=== PATIENT | female | born 1945 | race Caucasian/White ===

== ENCOUNTER 2018-06-09 06:28 | Inpatient (IN) | payer MEDICARE, OTHER ==
[2018-06-09 06:56] LABS: BASO # 0.3 K/uL (0.0-0.2); BASO % 1.1 % (0.0-2.0); EOS # 0.1 K/uL (0.0-0.7); EOS % 0.3 % (0.0-4.0); LYMPH # 2.7 K/uL (1.0-4.3); LYMPH % 11.3 % (20.0-40.0); MEAN CORPUSCULAR HEMOGLOBIN 26.4 pg (27.0-31.0); MEAN CORPUSCULAR HGB CONC 29.7 g/dL (33.0-37.0); MEAN PLATELET VOLUME 8.4 fL (7.2-11.7); MONO # 1.7 K/uL (0.0-0.8); MONO % 6.9 % (0.0-10.0); NEUT # 19.5 K/uL (1.8-7.0); NEUT % 80.4 % (50.0-75.0); NRBC % 0.8 % (0.0-2.0); RBC 4.04 Mil/uL (3.80-5.20); RED CELL DISTRIBUTION WIDTH 15.8 % (11.5-14.5)
--- NOTE | 2018-06-09 06:57 | C.PDOC ---
History Of Present Illness 72 year old female with PMHx of COPD is brought to the ED by EMS for respiratory distress. As per Son patient collapsed in front of him. En route to the ED patient went into PEA. ACLS CPR was done and multiple epis were given with morocho bsequent patient had to be intubated. <Camilo Lora R - Last Filed: 06/09/18 10:01> History Per: EMS, Family Reason For Code Blue: Full Arrest Circumstances: Brought To ED By EMS Arrest Witnessed By: Family CPR Initiated Prior To MD Arrival?: No Down-Time Before ACLS: Unknown Treatment Initiated Prior To MD Arrival: Yes: CPR, Intubation, ACLS Medication Initiation Medications Given Prior To MD Arrival: Yes: Epinephrine - Initial Findings Mentation: Unresponsive Respirations: None (Assisted) Rhythm: PEA <Jeanette Lorael R - Last Filed: 06/09/18 10:01> <Rema Streeter A - Last Filed: 06/11/18 07:44> Chief Complaint (Nursing): Cardiac Arrest Past Medical History Reviewed: Historical Data, Nursing Documentation, Vital Signs Vital Signs: Last Vital Signs Temp Pulse 110 H 06/09/18 06:33 Resp 12 06/09/18 06:33 BP 72/33 L 06/09/18 06:33 Pulse Ox 98 06/09/18 06:33 - Medical History PMH: Asthma, CHF, COPD, Emphysema, HTN, Hypercholesterolemia, Seizures Surgical History: No Surg Hx - [facility] Procedures ASSISTANCE WITH RESPIRATORY VENTILATION, >96 HRS, CPAP (05/04/16) INSERTION OF INFUSION DEV INTO SUP VENA CAVA, PERC APPROACH (03/24/16) Family History: States: Unknown Family Hx - Social History Hx Alcohol Use: No Hx Substance Use: No - Immunization History Hx Tetanus Toxoid Vaccination: No Hx Influenza Vaccination: No Hx Pneumococcal Vaccination: No <LoraCamilo R - Last Filed: 06/09/18 10:01> Vital Signs: Last Vital Signs Temp 95.9 F L 06/09/18 06:33 Pulse 110 H 06/09/18 06:33 Resp 12 06/09/18 06:33 BP 72/33 L 06/09/18 06:33 Pulse Ox 98 06/09/18 06:58 - [facility] Procedures ASSISTANCE WITH RESPIRATORY VENTILATION, >96 HRS, CPAP (08/26/16) INSERTION OF INFUSION DEV INTO SUP VENA CAVA, PERC APPROACH (03/24/16) <Rema Streeter A - Last Filed: 06/11/18 07:44> Review Of Systems Review Of Systems: ROS cannot be obtained secondary to pt's inabilty to answer questions. <Camilo Lora R - Last Filed: 06/09/18 10:01> Physical Exam - Physical Exam Appears: Other (unresponsive ) Skin: Warm, Dry, Pale, No Rash, No Jaundice Head: Atraumatic, Normacephalic Eye(s): bilateral: Normal Inspection Oral Mucosa: Moist Tongue: No Swelling Throat: Normal Neck: Trachea Midline, No Trachea Deviated, Supple Chest: Symmetrical, No Deformity, No Tenderness, No Ecchymosis, No Subcutaneous Emphysema Cardiovascular: Other (PEA) Respiratory: Other (Intubated, good air entry on assisted ventilation) Gastrointestinal/Abdominal: Soft, No Distention, No Guarding, No Rebound Extremity: No Tenderness, No Deformity, No Swelling Neurological/Psych: Other (intubated, unresponsive ) Gait: Unable To Assess <GuidoCamilo R - Last Filed: 06/09/18 10:01> ED Course And Treatment - Laboratory Results Result Diagrams: 06/09/18 06:51 06/09/18 06:51 O2 Sat by Pulse Oximetry: 98 (Assisted) Progress Note: ACLS done with subsequent return of pulse, on assisted mechanical ventilation. - Physician Consult Information Time Consulting Physician Contacted: 06:55 Physician Contacted: Eduardo Paige Outcome Of Conversation: Admit to ICU <Camilo Lora R - Last Filed: 06/09/18 10:01> - Laboratory Results Result Diagrams: 06/10/18 07:39 06/10/18 07:39 - Radiology CXR: Interpreted by Me, Viewed By Me CXR Interpretation: Yes: Infiltrates (right sided infiltrate, no effusions) <Rema Streeter - Last Filed: 06/11/18 07:44> Central Line Placement - Central Line Placement Indication: Emergent IV Access Central Line Placement: Right: Femoral The Area Was Thoroughly Prepared With: Chlorhexidine Procedure: Triple Lumen, Placed Using Standard Seldinger Technique, Catheter Was Sewn Into Place, Sterile Dressing Placed Over Line, Procedure Tolerated Well <Rema Streeter - Last Filed: 06/11/18 07:44> Medical Decision Making Medical Decision Making: Plan: * EKG * Labs * CXR <Camilo Lora R - Last Filed: 06/09/18 10:01> Disposition Discussed With .: Eduardo Paige Doctor Will See Patient In The: Hospital Counseled Patient/Family Regarding: Diagnosis - Disposition Disposition Time: 07:00 - POA Present On Arrival: None <Camilo Lora R - Last Filed: 06/09/18 10:01> <Rema Streeter A - Last Filed: 06/11/18 07:44> - Disposition Disposition: HOSPITALIZED Condition: GUARDED - Clinical Impression Clinical Impression: Respiratory arrest, Acute respiratory failure Critical Care Time - Critical Care Note Total Time (in mins): 30 Documented critical care: time excludes all time spent performing seperately billable procedures. <Camilo Lora R - Last Filed: 06/09/18 10:01> - Critical Care Note Total Time (in mins): 50 Documented critical care: time excludes all time spent performing seperately billable procedures. <Rema Streeter A - Last Filed: 06/11/18 07:44> - Scribe Statement The provider has reviewed the documentation as recorded by the Scribe Hi Stanford All medical record entries made by the Scribe were at my direction and personally dictated by me. I have reviewed the chart and agree that the record accurately reflects my personal performance of the history, physical exam, medical decision making, and the department course for this patient. I have also personally directed, reviewed, and agree with the discharge instructions and disposition. <Camilo Lora - Last Filed: 06/09/18 10:01> Addendum Addendum: 06/09/18 07:20 Patient signed out to me by Dr. Lora s/p cardiac arrest, currently, hypotensive (70s/30s) just started on Levophed via IO. Patient accepted by Dr. Paige for ICU admission (spoken to by Dr. Lora). On exam, patient has fixed pupils B/L, heart rate tachycardic, (+) breath sounds B/L, morbidly obese, abd nontender. As per son, patient was on comode in he room, c/o SOB and collapsed in front of him onto the floor. He states she had no other complaints prior to collapse. 06/09/18 07:35 CXR shows right sided infiltrate. Broad spectrum antibioitics started, IV NS bolus given. 06/09/18 08:23 Patient became bradycardic in 40s, atropine 0.5mg given, 1 amp bicarb and 1 amp d50 given. Persistent hypotension despite IV fluid and IV levophed via IO. Right femoral central line placed by ok, IV dopamine started. <Rema Streeter - Last Filed: 06/11/18 07:44>
[2018-06-09] MEDS ORDERED: Magnesium Sulfate 1 gm in D5W 2 GM/200 ML BAG IVPB ONE (07:00)
[2018-06-09 07:14] LABS: HEMOGLOBIN 10.7 g/dL (11.0-16.0); WHITE BLOOD COUNT 24.2 K/uL (4.8-10.8)
[2018-06-09 07:19] LABS: ABG ALLEN TEST POS; ARTERIAL BLOOD GAS HCO3 6.7 mmol/L (21-28); ARTERIAL BLOOD GAS O2 SAT 100.8 % (95-98); ARTERIAL BLOOD GAS PCO2 46 mm/Hg (35-45); ARTERIAL BLOOD GAS PH 6.91 (7.35-7.45); ARTERIAL BLOOD GAS PO2 230 mm/Hg (80-100); ARTERIAL BLOOD GAS TCO2 10.6 mmol/L (22-28)
[2018-06-09 07:20] LABS: PARTIAL THROMBOPLASTIN TIME 48 SECONDS (21-34); PROTHROMBIN TIME 52.4 SECONDS (9.7-12.2)
[2018-06-09 07:21] LABS: ALB/GLOB RATIO 0.8 (1.0-2.1); ALBUMIN 2.5 g/dL (3.5-5.0); CALCIUM 9.6 mg/dl (8.6-10.4)
[2018-06-09 07:23] LABS: D DIMER > 5250 ng/mlDDU (0-243)
[2018-06-09 07:26] LABS: INR 4.8
[2018-06-09 07:27] LABS: CK-MB 1.84 ng/mL (0.0-3.38); TROPONIN I 0.032 ng/mL (0.00-0.120)
[2018-06-09] MEDS ORDERED: Cefepime 1 GM in Sodium Chloride 0.9% 50 ML IVPB STA (07:29)
[2018-06-09] MEDS ORDERED: Vancomycin 1 GM 1 GM/250 ML BAG IV STA (07:29)
[2018-06-09] MEDS ORDERED: Moxifloxacin IV 400mg/250ml NS 400 MG/250 ML BAG IVPB STA (07:29)
[2018-06-09] MEDS ORDERED: Sodium Bicarbonate (8.4%) 50 Meq Syringe IVP STA ×2 (07:31→08:28)
[2018-06-09] MEDS ORDERED: Dextrose 50% SYRINGE Inj (50 ml) IVP STA (07:31)
[2018-06-09] MEDS ORDERED: Sodium Chloride 0.9% 1,000 ML IV ONE ×2 (07:35→07:40)
[2018-06-09] MEDS ORDERED: Cefepime IV 1 gm in Dextrose 1 GM/50 ML BAG IVPB STA (07:35)
[2018-06-09] MEDS ORDERED: DOPamine 400mg/250ml D5W 400 MG/250 ML BAG IV ONE (08:16)
[2018-06-09] MEDS ORDERED: Atropine Sulfate 1 mg/ml Vial (1 ml) IVP ONE (08:28)
[2018-06-09] MEDS ORDERED: DOPamine 400mg/250ml D5W 400 MG/250 ML BAG IV STA (08:29)
[2018-06-09] MEDS: Norepinephrine 4 MG in Dextrose 5% In Water 246 ML IV PRN ×4 (09:00→22:10)
[2018-06-09] MEDS ORDERED: Vancomycin 1 GM 1 GM/250 ML BAG IVPB ONE (09:02)
[2018-06-09] MEDS ORDERED: Moxifloxacin IV 400mg/250ml NS 400 MG/250 ML BAG IVPB ONE (09:02)
[2018-06-09] MEDS ORDERED: Sodium Chloride 0.9% 500 ML IV ONE (09:30)
[2018-06-09] MEDS ORDERED: Albumin Human 25% (12.5 gm/50 ml) IV ONE ×2 (09:30→13:32)
[2018-06-09] MEDS ORDERED: Sodium Bicarbonate (8.4%) 50 Meq Syringe ONE ×2 (09:38→15:37)
--- NOTE | 2018-06-09 10:21 | RAD ---
Date of service: 06/09/2018 HISTORY: post intubation COMPARISON: 05/09/2016 FINDINGS: Endotracheal tube terminates in the mid trachea. LUNGS: There is ill-defined consolidation in the right perihilar region. There is also moderate pulmonary venous congestion. PLEURA: No significant pleural effusion identified, no pneumothorax apparent. CARDIOVASCULAR: Mild cardiomegaly. OSSEOUS STRUCTURES: No significant abnormalities. VISUALIZED UPPER ABDOMEN: Normal. OTHER FINDINGS: None. IMPRESSION: Ill-defined right perihilar consolidation may represent pneumonia however mass cannot be excluded. Follow-up after medical management is recommended to ensure complete resolution. Mild cardiomegaly and moderate pulmonary venous congestion. Endotracheal tube terminates in the mid trachea.
[2018-06-09] MEDS ORDERED: Dextrose 50% SYRINGE Inj (50 ml) IV PRN (10:29)
[2018-06-09] MEDS ORDERED: Glucagon Recombinant 1 mg Inj IM PRN (10:29)
[2018-06-09] MEDS ORDERED: MethylPREDNISolone 40 mg Vial IVP STA (10:29)
[2018-06-09] MEDS ORDERED: Sodium Bicarbonate (8.4%) 50 Meq Syringe IVP ONE ×2 (10:30→14:15)
[2018-06-09 10:32] LABS: ABG ALLEN TEST POS; ARTERIAL BLOOD GAS HCO3 11.5 mmol/L (21-28); ARTERIAL BLOOD GAS O2 SAT 98.7 % (95-98); ARTERIAL BLOOD GAS PCO2 41 mm/Hg (35-45); ARTERIAL BLOOD GAS PH 7.08 (7.35-7.45); ARTERIAL BLOOD GAS PO2 137 mm/Hg (80-100); ARTERIAL BLOOD GAS TCO2 13.5 mmol/L (22-28)
[2018-06-09] MEDS: Piperacill/Tazo 3.375gm in Dex 3.375 GM/50 ML BAG IVPB SCH ×3 (11:37→23:00)
--- NOTE | 2018-06-09 12:40 | CT ---
Date of service: 06/09/2018 PROCEDURE: CT HEAD WITHOUT CONTRAST. HISTORY: Questionable anoxic brain injury. Trauma. COMPARISON: Comparison made with prior CT scan brain 03/24/2016. TECHNIQUE: Axial computed tomography images were obtained through the head/brain without intravenous contrast. Radiation dose: Total exam DLP = 1068.99 mGy-cm. This CT exam was performed using one or more of the following dose reduction techniques: Automated exposure control, adjustment of the mA and/or kV according to patient size, and/or use of iterative reconstruction technique. FINDINGS: HEMORRHAGE: No intracranial hemorrhage. BRAIN: Mild diffuse/confluent chronic periventricular white matter ischemic changes seen extending peripherally into the deep and subcortical white matter both cerebral hemispheres. In addition, suspect a small chronic left basal ganglia lacunar type infarct versus dilated perivascular space. Note that the possibility of a small hyperacute infarct cannot be excluded.. No obvious parenchymal nor extra-axial mass or collection seen on this noncontrast study. Moderate to fairly significant generalized volume loss. VENTRICLES: No obstructive hydrocephalus. CALVARIUM: There are no acute calvarial fracture seen.. PARANASAL SINUSES: Unremarkable as visualized. No significant inflammatory changes. MASTOID AIR CELLS: Unremarkable as visualized. No inflammatory changes. OTHER FINDINGS: Changes of bilateral cataract surgery IMPRESSION: No acute intracranial hemorrhage. Mild chronic white matter and left basal nuclei lacunar type infarct Moderate to fairly significant generalized volume loss
[2018-06-09] MEDS: Phenylephrine 30 MG in Sodium Chloride 0.9% 250 ML IV PRN ×4 (13:44→23:35)
[2018-06-09] MEDS: DOPamine 400mg/250ml D5W 400 MG/250 ML BAG IV PRN ×4 (14:05→22:50)
[2018-06-09] MEDS: Albuterol-Ipratrop 3 mg / 0.5 (3 ml) UD INH SCH ×2 (16:00→19:42)
[2018-06-09 18:25] LABS: BASO # 0.1 K/uL (0.0-0.2); BASO % 0.3 % (0.0-2.0); EOS # 0.4 K/uL (0.0-0.7); EOS % 1.1 % (0.0-4.0); HEMOGLOBIN 9.2 g/dL (11.0-16.0); LYMPH # 0.9 K/uL (1.0-4.3); LYMPH % 2.4 % (20.0-40.0); MEAN CELL VOLUME 85.4 fL (81.0-99.0); MEAN CORPUSCULAR HGB CONC 30.4 g/dL (33.0-37.0); MEAN PLATELET VOLUME 7.3 fL (7.2-11.7); MONO # 1.2 K/uL (0.0-0.8); MONO % 3.1 % (0.0-10.0); NEUT # 36.7 K/uL (1.8-7.0); NEUT % 93.1 % (50.0-75.0); NRBC % 0.4 % (0.0-2.0); PLATELET COUNT 141 K/uL (130-400); RBC 3.53 Mil/uL (3.80-5.20); RED CELL DISTRIBUTION WIDTH 15.8 % (11.5-14.5)
--- NOTE | 2018-06-09 18:25 | CP.PCM.CON ---
History of Present Illness - History of Present Illness History of Present Illness: Critical Care Consult Note Patient is a 72 year old female with past medical history of COPD on home oxygen, hypertension, CAD, hyperlipidemia, epilepsy, osteoporosis presenting to ED with chief complaint of cardiac arrest. Per patient's son, patient was on commode in her room and complained of shortness of breath then collapsed on to the floor. Before arrival to ED, patient went into PEA. ACLS protocol was done. Patient was intubated. In ED patient became bradycardic into the 40s, atropine 0.5 mg, 1 amp bicarb, 1 amp d50 given. Right femoral central line placed. IV dopamine started. History was obtained via prior records as patient is unresponsive and unable to provide history. PMH: COPD on home oxygen, hypertension, CAD, hyperlipidemia, epilepsy, osteoporosis PSH: stent placement Social: former smoker. No alcool, illicit drug use Allergies: NKDA FHx: noncontributory Review of Systems - Review of Systems Systems not reviewed;Unavailable: Intubated Past Patient History - Infectious Disease Hx of Infectious Diseases: None - Past Medical History & Family History Past Medical History?: Yes - Past Social History Smoking Status: Unknown If Ever Smoked - CARDIAC Hx Congestive Heart Failure: Yes Hx Hypercholesterolemia: Yes Hx Hypertension: Yes - PULMONARY Hx Asthma: Yes Hx Chronic Obstructive Pulmonary Disease (COPD): Yes Hx Emphysema: Yes - NEUROLOGICAL Hx Seizures: Yes - HEENT Hx HEENT Problems: No - RENAL Hx Chronic Kidney Disease: No - ENDOCRINE/METABOLIC Hx Endocrine Disorders: No - HEMATOLOGICAL/ONCOLOGICAL Hx Blood Disorders: No - INTEGUMENTARY Hx Dermatological Problems: No - MUSCULOSKELETAL/RHEUMATOLOGICAL Hx Falls: Yes - GASTROINTESTINAL Hx Gastrointestinal Disorders: No - GENITOURINARY/GYNECOLOGICAL Hx Genitourinary Disorders: No - PSYCHIATRIC Hx Substance Use: No - SURGICAL HISTORY Hx Surgeries: No - ANESTHESIA Hx Anesthesia: No Hx Anesthesia Reactions: No Hx Malignant Hyperthermia: No Has any member of the family had a problem w/ anesthesia?: No Meds Allergies/Adverse Reactions: Allergies Allergy/AdvReac Type Severity Reaction Status Date / Time No Known Allergies Allergy Verified 06/09/18 06:31 - Medications Medications: Current Medications Albuterol/Ipratropium (Duoneb 3 Mg/0.5 Mg (3 Ml) Ud) 3 ml INH RQ6 JULIO Dextrose (Dextrose 50% Inj) 0 ml IV STAT PRN; Protocol PRN Reason: Hypoglycemia Protocol Dextrose (Glutose 15) 15 gm PO ONCE PRN; Protocol PRN Reason: Hypoglycemia Protocol Glucagon (Glucagen Diagnostic Kit) 1 mg IM STAT PRN; Protocol PRN Reason: Hypoglycemia Protocol Heparin Sodium (Porcine) (Heparin) 5,000 units SC Q8 JULIO Last Admin: 06/09/18 14:06 Dose: Not Given Norepinephrine Bitartrate 4 mg (/ Dextrose) 250 mls @ 15 mls/hr IV .[id number] PRN; Protocol PRN Reason: TITRATE PER MD ORDER Last Admin: 06/09/18 13:46 Dose: 20 mcg/min, 75 mls/hr Dextrose (Dextrose 5% In Water 1000 Ml) 1,000 mls @ 0 mls/hr IV .Q0M PRN; Protocol PRN Reason: Hypoglycemia Protocol Piperacillin Sod/Tazobactam Sod (Zosyn 3.375 Gm Iv Premix) 3.375 gm in 50 mls @ 100 mls/hr IVPB Q6H JULIO; Protocol Last Admin: 06/09/18 18:07 Dose: 100 mls/hr Vasopressin 40 units/ Sodium (Chloride) 40 mls @ 0.6 mls/hr IV .Q24H JULIO; Protocol Last Titration: 06/09/18 12:26 Dose: 0.04 units/min, 2.4 mls/hr Phenylephrine HCl 30 mg/ (Sodium Chloride) 253 mls @ 10.12 mls/hr IV .Q24H PRN; Protocol PRN Reason: TITRATE PER MD ORDER Last Admin: 06/09/18 17:35 Dose: 180 mcg/min, 91.08 mls/hr Dopamine HCl/Dextrose (Dopamine 400mg/250ml D5w) 400 mg in 250 mls @ 7.202 mls/hr IV .Q24H PRN; Protocol PRN Reason: TITRATE PER MD ORDER Last Admin: 06/09/18 17:01 Dose: 20 mcg/kg/min, 72.02 mls/hr Pantoprazole Sodium (Protonix Inj) 40 mg IVP DAILY JULIO Physical Exam - Head Exam Head Exam: ATRAUMATIC, NORMOCEPHALIC - Eye Exam Eye Exam: Normal appearance, PERRL Pupil Exam: Mydriatic - ENT Exam ENT Exam: Mucous Membranes Moist - Neck Exam Neck exam: Positive for: Normal Inspection. Negative for: Lymphadenopathy - Respiratory Exam Respiratory Exam: Decreased Breath Sounds, NORMAL BREATHING PATTERN Additional comments: intubated - Cardiovascular Exam Cardiovascular Exam: REGULAR RHYTHM, +S1, +S2 - GI/Abdominal Exam GI & Abdominal Exam: Normal Bowel Sounds, Soft. absent: Rebound, Rigid - Extremities Exam Extremities exam: Positive for: normal inspection, pedal pulses present - Neurological Exam Neurological exam: Altered - Skin Skin Exam: Dry, Intact, Warm Results - Vital Signs Recent Vital Signs: Last Vital Signs Temp 91.6 F L 06/09/18 18:00 Pulse 82 06/09/18 18:00 Resp 24 06/09/18 18:00 BP 62/40 L 06/09/18 17:35 Pulse Ox 100 06/09/18 18:00 - Labs Result Diagrams: 06/09/18 18:17 06/09/18 18:17 Labs: Laboratory Results - last 24 hr 06/09/18 06/09/18 06/09/18 06:51 06:51 06:51 WBC 24.2 H D RBC 4.04 Hgb 10.7 L D Hct 36.0 MCV 89.0 MCH 26.4 L MCHC 29.7 L RDW 15.8 H Plt Count 381 MPV 8.4 Neut % (Auto) 80.4 H Lymph % (Auto) 11.3 L [place] % (Auto) 6.9 Eos % (Auto) 0.3 Baso % (Auto) 1.1 Neut # (Auto) 19.5 H Lymph # (Auto) 2.7 [place] # (Auto) 1.7 H Eos # (Auto) 0.1 Baso # (Auto) 0.3 H PT 52.4 H INR 4.8 APTT 48 H D-Dimer, Quantitative > 5250 H Puncture Site pCO2 pO2 HCO3 ABG pH ABG Total CO2 ABG O2 Saturation ABG Base Excess Leonardo Test ABG Potassium A-a O2 Difference Respiratory Index Glucose Lactate Vent Mode Mechanical Rate FiO2 Tidal Volume PEEP Crit Value Called To Crit Value Called By Crit Value Read Back Blood Gas Notified Time Sodium 142 Potassium 5.4 H Chloride 108 H Carbon Dioxide 12 L Anion Gap 27 H BUN 17 Creatinine 1.3 H Est GFR ( Amer) 49 Est GFR (Non-Af Amer) 40 POC Glucose (mg/dL) Random Glucose 40 L* D Calcium 9.6 Total Bilirubin 1.0 AST 1105 H ALT 556 H D Alkaline Phosphatase 128 H Total Creatine Kinase 160 H CK-MB (Mass) 1.84 Troponin I 0.0320 NT-Pro-B Natriuret Pep 1030 H Total Protein 5.5 L Albumin 2.5 L D Globulin 3.0 Albumin/Globulin Ratio 0.8 L Arterial Blood Potassium 06/09/18 06/09/18 06/09/18 07:12 10:28 11:40 WBC RBC Hgb Hct MCV MCH MCHC RDW Plt Count MPV Neut % (Auto) Lymph % (Auto) [place] % (Auto) Eos % (Auto) Baso % (Auto) Neut # (Auto) Lymph # (Auto) [place] # (Auto) Eos # (Auto) Baso # (Auto) PT INR APTT D-Dimer, Quantitative Puncture Site Lra Rb pCO2 46 H 41 pO2 230 H 137 H HCO3 6.7 L* 11.5 L ABG pH 6.91 L* 7.08 L* ABG Total CO2 10.6 L 13.5 L ABG O2 Saturation 100.8 H 98.7 H ABG Base Excess -23.4 L -17.2 L Leonardo Test Pos Pos ABG Potassium 6.5 H* 4.8 A-a O2 Difference 426.0 525.0 Respiratory Index 1.9 3.8 Glucose 38 L* D 167 H Lactate 17.8 H* 9.1 H* Vent Mode Prvc Mechanical Rate 16 14 FiO2 100.0 100.0 Tidal Volume 500 500 PEEP 5 Crit Value Called To Dr vaughn ca Crit Value Called By Darian howard prototype model maker Lior patten wireless architect Crit Value Read Back Y Y Blood Gas Notified Time 718 1034 Sodium 138.0 139.0 Potassium Chloride 105.0 110.0 H Carbon Dioxide Anion Gap BUN Creatinine Est GFR ( Amer) Est GFR (Non-Af Amer) POC Glucose (mg/dL) 187 H Random Glucose Calcium Total Bilirubin AST ALT Alkaline Phosphatase Total Creatine Kinase CK-MB (Mass) Troponin I NT-Pro-B Natriuret Pep Total Protein Albumin Globulin Albumin/Globulin Ratio Arterial Blood Potassium 6.5 H* 4.8 06/09/18 06/09/18 06/09/18 14:12 15:37 16:09 WBC RBC Hgb Hct MCV MCH MCHC RDW Plt Count MPV Neut % (Auto) Lymph % (Auto) [place] % (Auto) Eos % (Auto) Baso % (Auto) Neut # (Auto) Lymph # (Auto) [place] # (Auto) Eos # (Auto) Baso # (Auto) PT INR APTT D-Dimer, Quantitative Puncture Site pCO2 pO2 HCO3 ABG pH ABG Total CO2 ABG O2 Saturation ABG Base Excess Leonardo Test ABG Potassium A-a O2 Difference Respiratory Index Glucose Lactate Vent Mode Mechanical Rate FiO2 Tidal Volume PEEP Crit Value Called To Crit Value Called By Crit Value Read Back Blood Gas Notified Time Sodium Potassium Chloride Carbon Dioxide Anion Gap BUN Creatinine Est GFR ( Amer) Est GFR (Non-Af Amer) POC Glucose (mg/dL) 209 H 251 H 240 H Random Glucose Calcium Total Bilirubin AST ALT Alkaline Phosphatase Total Creatine Kinase CK-MB (Mass) Troponin I NT-Pro-B Natriuret Pep Total Protein Albumin Globulin Albumin/Globulin Ratio Arterial Blood Potassium 06/09/18 06/09/18 17:18 17:49 WBC RBC Hgb Hct MCV MCH MCHC RDW Plt Count MPV Neut % (Auto) Lymph % (Auto) [place] % (Auto) Eos % (Auto) Baso % (Auto) Neut # (Auto) Lymph # (Auto) [place] # (Auto) Eos # (Auto) Baso # (Auto) PT INR APTT D-Dimer, Quantitative Puncture Site pCO2 pO2 HCO3 ABG pH ABG Total CO2 ABG O2 Saturation ABG Base Excess Leonardo Test ABG Potassium A-a O2 Difference Respiratory Index Glucose Lactate Vent Mode Mechanical Rate FiO2 Tidal Volume PEEP Crit Value Called To Crit Value Called By Crit Value Read Back Blood Gas Notified Time Sodium Potassium Chloride Carbon Dioxide Anion Gap BUN Creatinine Est GFR ( Amer) Est GFR (Non-Af Amer) POC Glucose (mg/dL) 280 H 288 H Random Glucose Calcium Total Bilirubin AST ALT Alkaline Phosphatase Total Creatine Kinase CK-MB (Mass) Troponin I NT-Pro-B Natriuret Pep Total Protein Albumin Globulin Albumin/Globulin Ratio Arterial Blood Potassium Assessment & Plan - Assessment and Plan (Free Text) Assessment: Patient is a 72 year old female with past medical history of COPD on home oxygen, hypertension, CAD, hyperlipidemia, epilepsy, osteoporosis presenting to ED with chief complaint of cardiac arrest, s/p ACLS protocol with ROSC, s/p intubation and unresponsive. 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 Moderate to fairly significant generalized volume loss - hypothermia protocol Pulm: - s/p intubation - CXR shows ill-defined perihilar consolidation may represent pneumonia or possible mass. Mild cardiomegaly, moderate pulmonary venous congestion. - maintain SPO2> 92 % - Duonebs 3 ml INH RQ6 CV: - maintain MAP> 65 - Vasopressors: dopamine, Levophed, Vasopressin, Phenylephrine - followup ECHO - Cardiology consulted. Appreciate recs. GI: - Protonix 40 mg IV daily - NPO Renal: - monitor I and O - monitor and replete electrolytes Endo: - maintain euglycemia with blood sugars 140-180 - holding ISS Heme: - monitor H&H ID: - Afebrile, WBC count on admission 24.2 - Followup blood cultures, urine cultures - Cefepime 2 grams given - Moxifloxacin 400 mg given - Vancomycin 2 grams given - Continue Zosyn 3.375 grams IV Q6H Dispo: ICU, s/p intubation FEN: NPO Access: central line, peripheral IVs Consults: Cardio, Neuro PPX: Protonix for GI, SCDs, heparin 5000 units SC Q8 Patient seen, reviewed, and discussed with attending, Dr. Grecia Daniels PGY-1 - Date & Time Date: 06/09/18 Time: 10:30
[2018-06-09 18:28] LABS: WHITE BLOOD COUNT 39.4 K/uL (4.8-10.8)
--- NOTE | 2018-06-09 18:45 | CP.PCM.HP ---
History of Present Illness - History of Present Illness History of Present Illness: Chief complaint: Cardiac arrest HPI: 72-year-old female with a history of severe COPD, on home O2, CAD, stent, hypertension, hypercholesterolemia brought in by the ambulance following a cardiac arrest even. According to the patient's and she was having progressively worsening shortness of breath, and worsening cough, and shortness of breath. Last night patient was having increasing symptoms of SOB, at the time patient was given nebulizer in the house, and the patient's son was asking her to go to the hospital, initially patient was refusing. Following that patient was feeling slightly better with the nebs treatment. But in the hoister time today patient fell on the floor, and the patient's son called ambulance. While the ambulance arrived the patient was in apnea, no pulse was noted, found to have pulseless electrical activity. Patient was initially resuscitated in the house to my intubated and brought in to the emergency room. In the emergency room again patient had a cardiac arrest, resuscitated again w ith at least half an hour of CPR. Patient is currently in the ICU. On ventilator. There is evidence of anoxia noted, and not responding. Patient started on induced hypothermia because of the weakness to cardiac arrest Past medical history: CAD, hypertension, COPD, home O2 Allergy no known drug allergy Personal history patient used to be a smoker in the past. Current patient is living in the house, patient did not see any doctor for many months. Review of system noted from the chart a On examination: Patient is unresponsive. On ventilator. Not responding to any stimuli. Severe hypertensive. Patient labs reviewed Currently anuric. Chest x-ray no acute infiltrate noted. CT scan of the head negative Assessment: Patient is a 72-year-old female with a history of CAD hypertension COPD home oxygen. Admitted with the cardiac arrest, now having possible anoxic encephalopathy. On hypothermia. But is still patient having severe hypotension on medications. Family at bedside. Explained to the family about the overall prognosis. Overall condition is very critical. Patient's prognosis very poor. Patient most likely anoxic, and comatose to. Will get a neurology evaluation, EEG, and ICU management Present on Admission - Present on Admission Any Indicators Present on Admission: No History of DVT/PE: No History of Uncontrolled Diabetes: No Urinary Catheter: No Decubitus Ulcer Present: No Past Patient History - Infectious Disease Hx of Infectious Diseases: None - Past Medical History & Family History Past Medical History?: Yes - Past Social History Smoking Status: Unknown If Ever Smoked - CARDIAC Hx Congestive Heart Failure: Yes Hx Hypercholesterolemia: Yes Hx Hypertension: Yes - PULMONARY Hx Asthma: Yes Hx Chronic Obstructive Pulmonary Disease (COPD): Yes Hx Emphysema: Yes - NEUROLOGICAL Hx Seizures: Yes - HEENT Hx HEENT Problems: No - RENAL Hx Chronic Kidney Disease: No - ENDOCRINE/METABOLIC Hx Endocrine Disorders: No - HEMATOLOGICAL/ONCOLOGICAL Hx Blood Disorders: No - INTEGUMENTARY Hx Dermatological Problems: No - MUSCULOSKELETAL/RHEUMATOLOGICAL Hx Falls: Yes - GASTROINTESTINAL Hx Gastrointestinal Disorders: No - GENITOURINARY/GYNECOLOGICAL Hx Genitourinary Disorders: No - PSYCHIATRIC Hx Substance Use: No - SURGICAL HISTORY Hx Surgeries: No - ANESTHESIA Hx Anesthesia: No Hx Anesthesia Reactions: No Hx Malignant Hyperthermia: No Has any member of the family had a problem w/ anesthesia?: No Meds Allergies/Adverse Reactions: Allergies Allergy/AdvReac Type Severity Reaction Status Date / Time No Known Allergies Allergy Verified 06/09/18 06:31 Results - Vital Signs Recent Vital Signs: Last Vital Signs Temp 91.6 F L 06/09/18 18:00 Pulse 82 06/09/18 18:00 Resp 24 06/09/18 18:00 BP 62/40 L 06/09/18 17:35 Pulse Ox 100 06/09/18 18:00 - Labs Result Diagrams: 06/09/18 18:17 06/09/18 18:17 Labs: Laboratory Results - last 24 hr 06/09/18 06/09/18 06/09/18 06:51 06:51 06:51 WBC 24.2 H D RBC 4.04 Hgb 10.7 L D Hct 36.0 MCV 89.0 MCH 26.4 L MCHC 29.7 L RDW 15.8 H Plt Count 381 MPV 8.4 Neut % (Auto) 80.4 H Lymph % (Auto) 11.3 L [place] % (Auto) 6.9 Eos % (Auto) 0.3 Baso % (Auto) 1.1 Neut # (Auto) 19.5 H Lymph # (Auto) 2.7 [place] # (Auto) 1.7 H Eos # (Auto) 0.1 Baso # (Auto) 0.3 H PT 52.4 H INR 4.8 APTT 48 H D-Dimer, Quantitative > 5250 H Puncture Site pCO2 pO2 HCO3 ABG pH ABG Total CO2 ABG O2 Saturation ABG Base Excess Leonardo Test ABG Potassium A-a O2 Difference Respiratory Index Glucose Lactate Vent Mode Mechanical Rate FiO2 Tidal Volume PEEP Crit Value Called To Crit Value Called By Crit Value Read Back Blood Gas Notified Time Sodium 142 Potassium 5.4 H Chloride 108 H Carbon Dioxide 12 L Anion Gap 27 H BUN 17 Creatinine 1.3 H Est GFR ( Amer) 49 Est GFR (Non-Af Amer) 40 POC Glucose (mg/dL) Random Glucose 40 L* D Calcium 9.6 Total Bilirubin 1.0 AST 1105 H ALT 556 H D Alkaline Phosphatase 128 H Total Creatine Kinase 160 H CK-MB (Mass) 1.84 Troponin I 0.0320 NT-Pro-B Natriuret Pep 1030 H Total Protein 5.5 L Albumin 2.5 L D Globulin 3.0 Albumin/Globulin Ratio 0.8 L Arterial Blood Potassium 06/09/18 06/09/18 06/09/18 07:12 10:28 11:40 WBC RBC Hgb Hct MCV MCH MCHC RDW Plt Count MPV Neut % (Auto) Lymph % (Auto) [place] % (Auto) Eos % (Auto) Baso % (Auto) Neut # (Auto) Lymph # (Auto) [place] # (Auto) Eos # (Auto) Baso # (Auto) PT INR APTT D-Dimer, Quantitative Puncture Site Lra Rb pCO2 46 H 41 pO2 230 H 137 H HCO3 6.7 L* 11.5 L ABG pH 6.91 L* 7.08 L* ABG Total CO2 10.6 L 13.5 L ABG O2 Saturation 100.8 H 98.7 H ABG Base Excess -23.4 L -17.2 L Leonardo Test Pos Pos ABG Potassium 6.5 H* 4.8 A-a O2 Difference 426.0 525.0 Respiratory Index 1.9 3.8 Glucose 38 L* D 167 H Lactate 17.8 H* 9.1 H* Vent Mode Prvc Mechanical Rate 16 14 FiO2 100.0 100.0 Tidal Volume 500 500 PEEP 5 Crit Value Called To Dr vaughn ca Crit Value Called By Darian howard client delivery manager Lior patten client associate Crit Value Read Back Y Y Blood Gas Notified Time 718 1034 Sodium 138.0 139.0 Potassium Chloride 105.0 110.0 H Carbon Dioxide Anion Gap BUN Creatinine Est GFR ( Amer) Est GFR (Non-Af Amer) POC Glucose (mg/dL) 187 H Random Glucose Calcium Total Bilirubin AST ALT Alkaline Phosphatase Total Creatine Kinase CK-MB (Mass) Troponin I NT-Pro-B Natriuret Pep Total Protein Albumin Globulin Albumin/Globulin Ratio Arterial Blood Potassium 6.5 H* 4.8 06/09/18 06/09/18 06/09/18 14:12 15:37 16:09 WBC RBC Hgb Hct MCV MCH MCHC RDW Plt Count MPV Neut % (Auto) Lymph % (Auto) [place] % (Auto) Eos % (Auto) Baso % (Auto) Neut # (Auto) Lymph # (Auto) [place] # (Auto) Eos # (Auto) Baso # (Auto) PT INR APTT D-Dimer, Quantitative Puncture Site pCO2 pO2 HCO3 ABG pH ABG Total CO2 ABG O2 Saturation ABG Base Excess Leonardo Test ABG Potassium A-a O2 Difference Respiratory Index Glucose Lactate Vent Mode Mechanical Rate FiO2 Tidal Volume PEEP Crit Value Called To Crit Value Called By Crit Value Read Back Blood Gas Notified Time Sodium Potassium Chloride Carbon Dioxide Anion Gap BUN Creatinine Est GFR ( Amer) Est GFR (Non-Af Amer) POC Glucose (mg/dL) 209 H 251 H 240 H Random Glucose Calcium Total Bilirubin AST ALT Alkaline Phosphatase Total Creatine Kinase CK-MB (Mass) Troponin I NT-Pro-B Natriuret Pep Total Protein Albumin Globulin Albumin/Globulin Ratio Arterial Blood Potassium 06/09/18 06/09/18 06/09/18 17:18 17:49 18:17 WBC 39.4 H* D RBC 3.53 L Hgb 9.2 L Hct 30.1 L MCV 85.4 D MCH 26.0 L MCHC 30.4 L RDW 15.8 H Plt Count 141 D MPV 7.3 Neut % (Auto) 93.1 H Lymph % (Auto) 2.4 L [place] % (Auto) 3.1 Eos % (Auto) 1.1 Baso % (Auto) 0.3 Neut # (Auto) 36.7 H Lymph # (Auto) 0.9 L [place] # (Auto) 1.2 H Eos # (Auto) 0.4 Baso # (Auto) 0.1 PT INR APTT D-Dimer, Quantitative Puncture Site pCO2 pO2 HCO3 ABG pH ABG Total CO2 ABG O2 Saturation ABG Base Excess Leonardo Test ABG Potassium A-a O2 Difference Respiratory Index Glucose Lactate Vent Mode Mechanical Rate FiO2 Tidal Volume PEEP Crit Value Called To Crit Value Called By Crit Value Read Back Blood Gas Notified Time Sodium Potassium Chloride Carbon Dioxide Anion Gap BUN Creatinine Est GFR ( Amer) Est GFR (Non-Af Amer) POC Glucose (mg/dL) 280 H 288 H Random Glucose Calcium Total Bilirubin AST ALT Alkaline Phosphatase Total Creatine Kinase CK-MB (Mass) Troponin I NT-Pro-B Natriuret Pep Total Protein Albumin Globulin Albumin/Globulin Ratio Arterial Blood Potassium 06/09/18 18:17 WBC RBC Hgb Hct MCV MCH MCHC RDW Plt Count MPV Neut % (Auto) Lymph % (Auto) [place] % (Auto) Eos % (Auto) Baso % (Auto) Neut # (Auto) Lymph # (Auto) [place] # (Auto) Eos # (Auto) Baso # (Auto) PT INR APTT 75 H D D-Dimer, Quantitative Puncture Site pCO2 pO2 HCO3 ABG pH ABG Total CO2 ABG O2 Saturation ABG Base Excess Leonardo Test ABG Potassium A-a O2 Difference Respiratory Index Glucose Lactate Vent Mode Mechanical Rate FiO2 Tidal Volume PEEP Crit Value Called To Crit Value Called By Crit Value Read Back Blood Gas Notified Time Sodium Potassium Chloride Carbon Dioxide Anion Gap BUN Creatinine Est GFR ( Amer) Est GFR (Non-Af Amer) POC Glucose (mg/dL) Random Glucose Calcium Total Bilirubin AST ALT Alkaline Phosphatase Total Creatine Kinase CK-MB (Mass) Troponin I NT-Pro-B Natriuret Pep Total Protein Albumin Globulin Albumin/Globulin Ratio Arterial Blood Potassium
[2018-06-09 18:46] LABS: CALCIUM 7.2 mg/dl (8.6-10.4)
[2018-06-09 18:53] LABS: INR 10.5
[2018-06-09 18:54] LABS: PROTHROMBIN TIME 115.7 SECONDS (9.7-12.2)
[2018-06-09 19:19] LABS: ANISOCYTOSIS SLIGHT; BANDS 9 % (0-2); LYMPHOCYTE 2 % (20-40); METAMYELOCYTE 1 % (0-0); MONOCYTE 3 % (0-10); NEUTROPHIL 84 % (50-75); PLATELET ESTIMATE NORMAL (NORMAL); POLYCHROMIC SLIGHT; REACTIVE LYMPHOCYTES 1 % (0-0); TOTAL CELLS COUNTED 100
[2018-06-09 19:20] LABS: ROULEAUX FORMATION SLIGHT
[2018-06-09] MEDS: Insulin Human Regular 100 UNIT in Sodium Chloride 0.9% 99 ML IV SCH (23:10)
--- NOTE | 2018-06-09 23:53 | CP.PCM.CON ---
History of Present Illness - History of Present Illness History of Present Illness: 72 F with hx of COPD, CAD s/p LAD stent, HTN admitted for gavin failure and Cardiac arrest Patient on code freeze Patient is a 72 year old female with past medical history of COPD on home oxygen, hypertension, CAD, hyperlipidemia, epilepsy, osteoporosis presenting to ED with chief complaint of cardiac arrest. Per patient's son, patient was on commode in her room and complained of shortness of breath then collapsed on to the floor. Before arrival to ED, patient went into [facility]A. ACLS protocol was done. Patient was intubated. In ED patient became bradycardic into the 40s, atropine 0.5 mg, 1 amp bicarb, 1 amp d50 given. Right femoral central line placed. IV dopamine started. History was obtained via prior records as patient is unre sponsive and unable to provide history. PMH: COPD on home oxygen, hypertension, CAD, hyperlipidemia, epilepsy, osteoporosis PSH: stent placement Social: former smoker. No alcool, illicit drug use Allergies: NKDA FHx: noncontributory Review of Systems - Review of Systems Systems not reviewed;Unavailable: Intubated Physical Exam - Head Exam Head Exam: ATRAUMATIC, NORMOCEPHALIC - Eye Exam Eye Exam: Normal appearance, PERRL Pupil Exam: Mydriatic - ENT Exam ENT Exam: Mucous Membranes Moist - Neck Exam Neck exam: Positive for: Normal Inspection. Negative for: Lymphadenopathy - Respiratory Exam Respiratory Exam: Decreased Breath Sounds, NORMAL BREATHING PATTERN Additional comments: intubated - Cardiovascular Exam Cardiovascular Exam: REGULAR RHYTHM, +S1, +S2 - GI/Abdominal Exam GI & Abdominal Exam: Normal Bowel Sounds, Soft. absent: Rebound, Rigid - Extremities Exam Extremities exam: Positive for: normal inspection, pedal pulses present - Neurological Exam Neurological exam: Altered - Skin Skin Exam: Dry, Intact, Warm Past Patient History - Infectious Disease Hx of Infectious Diseases: None - Past Medical History & Family History Past Medical History?: Yes - Past Social History Smoking Status: Unknown If Ever Smoked - CARDIAC Hx Congestive Heart Failure: Yes Hx Hypercholesterolemia: Yes Hx Hypertension: Yes - PULMONARY Hx Asthma: Yes Hx Chronic Obstructive Pulmonary Disease (COPD): Yes Hx Emphysema: Yes - NEUROLOGICAL Hx Seizures: Yes - HEENT Hx HEENT Problems: No - RENAL Hx Chronic Kidney Disease: No - ENDOCRINE/METABOLIC Hx Endocrine Disorders: No - HEMATOLOGICAL/ONCOLOGICAL Hx Blood Disorders: No - INTEGUMENTARY Hx Dermatological Problems: No - MUSCULOSKELETAL/RHEUMATOLOGICAL Hx Falls: Yes - GASTROINTESTINAL Hx Gastrointestinal Disorders: No - GENITOURINARY/GYNECOLOGICAL Hx Genitourinary Disorders: No - PSYCHIATRIC Hx Substance Use: No - SURGICAL HISTORY Hx Surgeries: No - ANESTHESIA Hx Anesthesia: No Hx Anesthesia Reactions: No Hx Malignant Hyperthermia: No Has any member of the family had a problem w/ anesthesia?: No Meds Allergies/Adverse Reactions: Allergies Allergy/AdvReac Type Severity Reaction Status Date / Time No Known Allergies Allergy Verified 06/09/18 06:31 - Medications Medications: Current Medications Albuterol/Ipratropium (Duoneb 3 Mg/0.5 Mg (3 Ml) Ud) 3 ml INH RQ6 JULIO Last Admin: 06/09/18 19:42 Dose: 3 ml Dextrose (Dextrose 50% Inj) 0 ml IV STAT PRN; Protocol PRN Reason: Hypoglycemia Protocol Dextrose (Glutose 15) 15 gm PO ONCE PRN; Protocol PRN Reason: Hypoglycemia Protocol Glucagon (Glucagen Diagnostic Kit) 1 mg IM STAT PRN; Protocol PRN Reason: Hypoglycemia Protocol Heparin Sodium (Porcine) (Heparin) 5,000 units SC Q8 JULIO Last Admin: 06/09/18 22:00 Dose: Not Given Norepinephrine Bitartrate 4 mg (/ Dextrose) 250 mls @ 15 mls/hr IV .[id number] PRN; Protocol PRN Reason: TITRATE PER MD ORDER Last Admin: 06/09/18 22:10 Dose: 20 mcg/min, 75 mls/hr Dextrose (Dextrose 5% In Water 1000 Ml) 1,000 mls @ 0 mls/hr IV .Q0M PRN; Pr otocol PRN Reason: Hypoglycemia Protocol Piperacillin Sod/Tazobactam Sod (Zosyn 3.375 Gm Iv Premix) 3.375 gm in 50 mls @ 100 mls/hr IVPB Q6H JULIO; Protocol Last Admin: 06/09/18 23:00 Dose: 100 mls/hr Vasopressin 40 units/ Sodium (Chloride) 40 mls @ 0.6 mls/hr IV .Q24H JULIO; Protocol Last Titration: 06/09/18 12:26 Dose: 0.04 units/min, 2.4 mls/hr Phenylephrine HCl 30 mg/ (Sodium Chloride) 253 mls @ 10.12 mls/hr IV .Q24H PRN; Protocol PRN Reason: TITRATE PER MD ORDER Last Admin: 06/09/18 23:35 Dose: 160 mcg/min, 80.96 mls/hr Dopamine HCl/Dextrose (Dopamine 400mg/250ml D5w) 400 mg in 250 mls @ 7.202 mls/hr IV .Q24H PRN; Protocol PRN Reason: TITRATE PER MD ORDER Last Admin: 06/09/18 22:50 Dose: 20 mcg/kg/min, 72.02 mls/hr Insulin Human Regular 100 unit (/ Sodium Chloride) 100 mls @ 2 mls/hr IV .Q24H JULIO; Protocol Last Admin: 06/09/18 23:10 Dose: 5 units/hr, 5 mls/hr Pantoprazole Sodium (Protonix Inj) 40 mg IVP DAILY JULIO Results - Vital Signs Recent Vital Signs: Last Vital Signs Temp 90.7 F L 06/09/18 23:00 Pulse 77 06/09/18 23:35 Resp 24 06/09/18 23:35 BP 134/46 L 06/09/18 23:35 Pulse Ox 99 06/09/18 23:35 - Labs Result Diagrams: 06/10/18 07:39 06/10/18 07:39 Labs: Laboratory Results - last 24 hr 06/09/18 06/09/18 06/09/18 06:51 06:51 06:51 WBC 24.2 H D RBC 4.04 Hgb 10.7 L D Hct 36.0 MCV 89.0 MCH 26.4 L MCHC 29.7 L RDW 15.8 H Plt Count 381 MPV 8.4 Neut % (Auto) 80.4 H Lymph % (Auto) 11.3 L [place] % (Auto) 6.9 Eos % (Auto) 0.3 Baso % (Auto) 1.1 Neut # (Auto) 19.5 H Lymph # (Auto) 2.7 [place] # (Auto) 1.7 H Eos # (Auto) 0.1 Baso # (Auto) 0.3 H Neutrophils % (Manual) Band Neutrophils % Lymphocytes % (Manual) Reactive Lymphs % Monocytes % (Manual) Metamyelocytes % Platelet Estimate Polychromasia Anisocytosis (manual) Rouleaux PT 52.4 H INR 4.8 APTT 48 H D-Dimer, Quantitative > 5250 H Puncture Site pCO2 pO2 HCO3 ABG pH ABG Total CO2 ABG O2 Saturation ABG Base Excess Leonardo Test ABG Potassium A-a O2 Difference Respiratory Index Glucose Lactate Vent Mode Mechanical Rate FiO2 Tidal Volume PEEP Crit Value Called To Crit Value Called By Crit Value Read Back Blood Gas Notified Time Sodium 142 Potassium 5.4 H Chloride 108 H Carbon Dioxide 12 L Anion Gap 27 H BUN 17 Creatinine 1.3 H Est GFR ( Amer) 49 Est GFR (Non-Af Amer) 40 POC Glucose (mg/dL) Random Glucose 40 L* D Calcium 9.6 Magnesium Total Bilirubin 1.0 AST 1105 H ALT 556 H D Alkaline Phosphatase 128 H Total Creatine Kinase 160 H CK-MB (Mass) 1.84 Troponin I 0.0320 NT-Pro-B Natriuret Pep 1030 H Total Protein 5.5 L Albumin 2.5 L D Globulin 3.0 Albumin/Globulin Ratio 0.8 L Arterial Blood Potassium 06/09/18 06/09/18 06/09/18 07:12 10:28 11:40 WBC RBC Hgb Hct MCV MCH MCHC RDW Plt Count MPV Neut % (Auto) Lymph % (Auto) [place] % (Auto) Eos % (Auto) Baso % (Auto) Neut # (Auto) Lymph # (Auto) [place] # (Auto) Eos # (Auto) Baso # (Auto) Neutrophils % (Manual) Band Neutrophils % Lymphocytes % (Manual) Reactive Lymphs % Monocytes % (Manual) Metamyelocytes % Platelet Estimate Polychromasia Anisocytosis (manual) Rouleaux PT INR APTT D-Dimer, Quantitative Puncture Site Lra Rb pCO2 46 H 41 pO2 230 H 137 H HCO3 6.7 L* 11.5 L ABG pH 6.91 L* 7.08 L* ABG Total CO2 10.6 L 13.5 L ABG O2 Saturation 100.8 H 98.7 H ABG Base Excess -23.4 L -17.2 L Leonardo Test Pos Pos ABG Potassium 6.5 H* 4.8 A-a O2 Difference 426.0 525.0 Respiratory Index 1.9 3.8 Glucose 38 L* D 167 H Lactate 17.8 H* 9.1 H* Vent Mode Prvc Mechanical Rate 16 14 FiO2 100.0 100.0 Tidal Volume 500 500 PEEP 5 Crit Value Called To Dr meneds er Dr naturijan Crit Value Called By Darian howard marine mammal trainer Lior patten data collection technician Crit Value Read Back Y Y Blood Gas Notified Time 718 1034 Sodium 138.0 139.0 Potassium Chloride 105.0 110.0 H Carbon Dioxide Anion Gap BUN Creatinine Est GFR ( Amer) Est GFR (Non-Af Amer) POC Glucose (mg/dL) 187 H Random Glucose Calcium Magnesium Total Bilirubin AST ALT Alkaline Phosphatase Total Creatine Kinase CK-MB (Mass) Troponin I NT-Pro-B Natriuret Pep Total Protein Albumin Globulin Albumin/Globulin Ratio Arterial Blood Potassium 6.5 H* 4.8 06/09/18 06/09/18 06/09/18 14:12 15:37 16:09 WBC RBC Hgb Hct MCV MCH MCHC RDW Plt Count MPV Neut % (Auto) Lymph % (Auto) [place] % (Auto) Eos % (Auto) Baso % (Auto) Neut # (Auto) Lymph # (Auto) [place] # (Auto) Eos # (Auto) Baso # (Auto) Neutrophils % (Manual) Band Neutrophils % Lymphocytes % (Manual) Reactive Lymphs % Monocytes % (Manual) Metamyelocytes % Platelet Estimate Polychromasia Anisocytosis (manual) Rouleaux PT INR APTT D-Dimer, Quantitative Puncture Site pCO2 pO2 HCO3 ABG pH ABG Total CO2 ABG O2 Saturation ABG Base Excess Leonardo Test ABG Potassium A-a O2 Difference Respiratory Index Glucose Lactate Vent Mode Mechanical Rate FiO2 Tidal Volume PEEP Crit Value Called To Crit Value Called By Crit Value Read Back Blood Gas Notified Time Sodium Potassium Chloride Carbon Dioxide Anion Gap BUN Creatinine Est GFR ( Amer) Est GFR (Non-Af Amer) POC Glucose (mg/dL) 209 H 251 H 240 H Random Glucose Calcium Magnesium Total Bilirubin AST ALT Alkaline Phosphatase Total Creatine Kinase CK-MB (Mass) Troponin I NT-Pro-B Natriuret Pep Total Protein Albumin Globulin Albumin/Globulin Ratio Arterial Blood Potassium 06/09/18 06/09/18 06/09/18 17:18 17:49 18:17 WBC 39.4 H* D RBC 3.53 L Hgb 9.2 L Hct 30.1 L MCV 85.4 D MCH 26.0 L MCHC 30.4 L RDW 15.8 H Plt Count 141 D MPV 7.3 Neut % (Auto) 93.1 H Lymph % (Auto) 2.4 L [place] % (Auto) 3.1 Eos % (Auto) 1.1 Baso % (Auto) 0.3 Neut # (Auto) 36.7 H Lymph # (Auto) 0.9 L [place] # (Auto) 1.2 H Eos # (Auto) 0.4 Baso # (Auto) 0.1 Neutrophils % (Manual) 84 H Band Neutrophils % 9 H Lymphocytes % (Manual) 2 L Reactive Lymphs % 1 H Monocytes % (Manual) 3 Metamyelocytes % 1 H Platelet Estimate Normal Polychromasia Slight Anisocytosis (manual) Slight Rouleaux Slight PT INR APTT D-Dimer, Quantitative Puncture Site pCO2 pO2 HCO3 ABG pH ABG Total CO2 ABG O2 Saturation ABG Base Excess Leonardo Test ABG Potassium A-a O2 Difference Respiratory Index Glucose Lactate Vent Mode Mechanical Rate FiO2 Tidal Volume PEEP Crit Value Called To Crit Value Called By Crit Value Read Back Blood Gas Notified Time Sodium Potassium Chloride Carbon Dioxide Anion Gap BUN Creatinine Est GFR ( Amer) Est GFR (Non-Af Amer) POC Glucose (mg/dL) 280 H 288 H Random Glucose Calcium Magnesium Total Bilirubin AST ALT Alkaline Phosphatase Total Creatine Kinase CK-MB (Mass) Troponin I NT-Pro-B Natriuret Pep Total Protein Albumin Globulin Albumin/Globulin Ratio Arterial Blood Potassium 06/09/18 06/09/18 06/09/18 18:17 18:17 19:05 WBC RBC Hgb Hct MCV MCH MCHC RDW Plt Count MPV Neut % (Auto) Lymph % (Auto) [place] % (Auto) Eos % (Auto) Baso % (Auto) Neut # (Auto) Lymph # (Auto) [place] # (Auto) Eos # (Auto) Baso # (Auto) Neutrophils % (Manual) Band Neutrophils % Lymphocytes % (Manual) Reactive Lymphs % Monocytes % (Manual) Metamyelocytes % Platelet Estimate Polychromasia Anisocytosis (manual) Rouleaux PT 115.7 H D INR 10.5 D APTT 75 H D D-Dimer, Quantitative Puncture Site pCO2 pO2 HCO3 ABG pH ABG Total CO2 ABG O2 Saturation ABG Base Excess Leonardo Test ABG Potassium A-a O2 Difference Respiratory Index Glucose Lactate Vent Mode Mechanical Rate FiO2 Tidal Volume PEEP Crit Value Called To Crit Value Called By Crit Value Read Back Blood Gas Notified Time Sodium 136 Potassium 5.3 H Chloride 98 Carbon Dioxide 17 L Anion Gap 26 H BUN 22 H Creatinine 1.7 H Est GFR ( Amer) 36 Est GFR (Non-Af Amer) 30 POC Glucose (mg/dL) 274 H Random Glucose 276 H Calcium 7.2 L Magnesium 2.7 H Total Bilirubin AST ALT Alkaline Phosphatase Total Creatine Kinase CK-MB (Mass) Troponin I NT-Pro-B Natriuret Pep Total Protein Albumin Globulin Albumin/Globulin Ratio Arterial Blood Potassium 06/09/18 06/09/18 06/09/18 20:02 20:49 21:57 WBC RBC Hgb Hct MCV MCH MCHC RDW Plt Count MPV Neut % (Auto) Lymph % (Auto) [place] % (Auto) Eos % (Auto) Baso % (Auto) Neut # (Auto) Lymph # (Auto) [place] # (Auto) Eos # (Auto) Baso # (Auto) Neutrophils % (Manual) Band Neutrophils % Lymphocytes % (Manual) Reactive Lymphs % Monocytes % (Manual) Metamyelocytes % Platelet Estimate Polychromasia Anisocytosis (manual) Rouleaux PT INR APTT D-Dimer, Quantitative Puncture Site pCO2 pO2 HCO3 ABG pH ABG Total CO2 ABG O2 Saturation ABG Base Excess Leonardo Test ABG Potassium A-a O2 Difference Respiratory Index Glucose Lactate Vent Mode Mechanical Rate FiO2 Tidal Volume PEEP Crit Value Called To Crit Value Called By Crit Value Read Back Blood Gas Notified Time Sodium Potassium Chloride Carbon Dioxide Anion Gap BUN Creatinine Est GFR ( Amer) Est GFR (Non-Af Amer) POC Glucose (mg/dL) 278 H 269 H 301 H Random Glucose Calcium Magnesium Total Bilirubin AST ALT Alkaline Phosphatase Total Creatine Kinase CK-MB (Mass) Troponin I NT-Pro-B Natriuret Pep Total Protein Albumin Globulin Albumin/Globulin Ratio Arterial Blood Potassium 06/09/18 22:48 WBC RBC Hgb Hct MCV MCH MCHC RDW Plt Count MPV Neut % (Auto) Lymph % (Auto) [place] % (Auto) Eos % (Auto) Baso % (Auto) Neut # (Auto) Lymph # (Auto) [place] # (Auto) Eos # (Auto) Baso # (Auto) Neutrophils % (Manual) Band Neutrophils % Lymphocytes % (Manual) Reactive Lymphs % Monocytes % (Manual) Metamyelocytes % Platelet Estimate Polychromasia Anisocytosis (manual) Rouleaux PT INR APTT D-Dimer, Quantitative Puncture Site pCO2 pO2 HCO3 ABG pH ABG Total CO2 ABG O2 Saturation ABG Base Excess Leonardo Test ABG Potassium A-a O2 Difference Respiratory Index Glucose Lactate Vent Mode Mechanical Rate FiO2 Tidal Volume PEEP Crit Value Called To Crit Value Called By Crit Value Read Back Blood Gas Notified Time Sodium Potassium Chloride Carbon Dioxide Anion Gap BUN Creatinine Est GFR ( Amer) Est GFR (Non-Af Amer) POC Glucose (mg/dL) 314 H Random Glucose Calcium Magnesium Total Bilirubin AST ALT Alkaline Phosphatase Total Creatine Kinase CK-MB (Mass) Troponin I NT-Pro-B Natriuret Pep Total Protein Albumin Globulin Albumin/Globulin Ratio Arterial Blood Potassium Assessment & Plan - Assessment and Plan (Free Text) Assessment: Patient is a 72 year old female with past medical history of COPD on home oxy gen, hypertension, CAD, hyperlipidemia, epilepsy, osteoporosis presenting to ED with chief complaint of cardiac arrest, s/p ACLS protocol with ROSC, s/p intubation and unresponsive. 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 Moderate to fairly significant generali zed volume loss - hypothermia protocol Pulm: - s/p intubation - CXR shows ill-defined perihilar consolidation may represent pneumonia or possible mass. Mild cardiomegaly, moderate pulmonary venous congestion. - maintain SPO2> 92 % - Duonebs 3 ml INH RQ6 CV: - maintain MAP> 65 - Vasopressors: dopamine, Levophed, Vasopressin, Phenylephrine - followup ECHO - Cardiology consulted. Appreciate recs. GI: - Protonix 40 mg IV daily - NPO Renal: - monitor I and O - monitor and replete electrolytes Endo: - maintain euglycemia with blood sugars 140-180 - holding ISS Heme: - monitor H&H ID: - Afebrile, WBC count on admission 24.2 - Followup blood cultures, urine cultures - Cefepime 2 grams given - Moxifloxacin 400 mg given - Vancomycin 2 grams given - Continue Zosyn 3.375 grams IV Q6H Dispo: ICU, s/p intubation FEN: NPO Access: central line, peripheral IVs Consults: Cardio, Neuro PPX: Protonix for GI, SCDs, heparin 5000 units SC Q8
[2018-06-10 01:00] LABS: BASO # 0.2 K/uL (0.0-0.2); BASO % 0.6 % (0.0-2.0); EOS # 0.6 K/uL (0.0-0.7); EOS % 1.6 % (0.0-4.0); HEMOGLOBIN 9.6 g/dL (11.0-16.0); LYMPH # 0.8 K/uL (1.0-4.3); MEAN CELL VOLUME 86.3 fL (81.0-99.0); MEAN CORPUSCULAR HGB CONC 30.2 g/dL (33.0-37.0); MEAN PLATELET VOLUME 8.3 fL (7.2-11.7); MONO # 0.4 K/uL (0.0-0.8); MONO % 0.9 % (0.0-10.0); NEUT # 39.2 K/uL (1.8-7.0); NEUT % 94.9 % (50.0-75.0); NRBC % 0.2 % (0.0-2.0); PLATELET COUNT 138 K/uL (130-400); RBC 3.68 Mil/uL (3.80-5.20); RED CELL DISTRIBUTION WIDTH 16.3 % (11.5-14.5)
[2018-06-10 01:08] LABS: WHITE BLOOD COUNT 41.3 K/uL (4.8-10.8)
[2018-06-10] MEDS: Albuterol-Ipratrop 3 mg / 0.5 (3 ml) UD INH SCH ×3 (01:08→14:17)
[2018-06-10 01:34] LABS: PROTHROMBIN TIME 109.1 SECONDS (9.7-12.2)
[2018-06-10] MEDS: DOPamine 400mg/250ml D5W 400 MG/250 ML BAG IV PRN ×5 (01:35→15:25)
[2018-06-10] MEDS: Norepinephrine 4 MG in Dextrose 5% In Water 246 ML IV PRN ×3 (01:35→09:30)
[2018-06-10 01:42] LABS: ANISOCYTOSIS SLIGHT; LYMPHOCYTE 1 % (20-40); METAMYELOCYTE 2 % (0-0); MONOCYTE 1 % (0-10); NEUTROPHIL 85 % (50-75); PLATELET ESTIMATE NORMAL (NORMAL); POIKILOCYTOSIS SLIGHT; TOTAL CELLS COUNTED 100
[2018-06-10 01:43] LABS: BANDS 11 % (0-2)
[2018-06-10 03:01] LABS: ALB/GLOB RATIO 0.9 (1.0-2.1); ALBUMIN 2.3 g/dL (3.5-5.0)
[2018-06-10] MEDS: Phenylephrine 30 MG in Sodium Chloride 0.9% 250 ML IV PRN ×4 (03:05→14:19)
[2018-06-10 05:01] LABS: ARTERIAL BLOOD GAS HCO3 9.6 mmol/L (21-28); ARTERIAL BLOOD GAS HEMOGLOBIN 10.3 g/dL (11.7-17.4); ARTERIAL BLOOD GAS O2 SAT 98.2 % (95-98); ARTERIAL BLOOD GAS PCO2 44 mm/Hg (35-45); ARTERIAL BLOOD GAS PO2 99 mm/Hg (80-100); ARTERIAL BLOOD GAS TCO2 12.3 mmol/L (22-28)
[2018-06-10] MEDS ORDERED: Sodium Bicarbonate (8.4%) 50 Meq Syringe IVP ONE ×2 (05:12→11:30)
[2018-06-10] MEDS: Piperacill/Tazo 3.375gm in Dex 3.375 GM/50 ML BAG IVPB SCH (05:25)
--- NOTE | 2018-06-10 07:17 | CP.PCM.CON ---
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 EEG - [place], BLINK ARTIFACTS WITH BURST SUPPRESSION REPEAT EEG/CAT DISMAL PROGNOSIS MAINTAIN MAP AROUND 100 HEAD END ELEVATION Past Patient History - Infectious Disease Hx of Infectious Diseases: None - Past Medical History & Family History Past Medical History?: Yes - Past Social History Smoking Status: Unknown If Ever Smoked - CARDIAC Hx Congestive Heart Failure: Yes Hx Hypercholesterolemia: Yes Hx Hypertension: Yes - PULMONARY Hx Asthma: Yes Hx Chronic Obstructive Pulmonary Disease (COPD): Yes Hx Emphysema: Yes - NEUROLOGICAL Hx Seizures: Yes - HEENT Hx HEENT Problems: No - RENAL Hx Chronic Kidney Disease: No - ENDOCRINE/METABOLIC Hx Endocrine Disorders: No - HEMATOLOGICAL/ONCOLOGICAL Hx Blood Disorders: No - INTEGUMENTARY Hx Dermatological Problems: No - MUSCULOSKELETAL/RHEUMATOLOGICAL Hx Falls: Yes - GASTROINTESTINAL Hx Gastrointestinal Disorders: No - GENITOURINARY/GYNECOLOGICAL Hx Genitourinary Disorders: No - PSYCHIATRIC Hx Substance Use: No - SURGICAL HISTORY Hx Surgeries: No - ANESTHESIA Hx Anesthesia: No Hx Anesthesia Reactions: No Hx Malignant Hyperthermia: No Has any member of the family had a problem w/ anesthesia?: No Meds Allergies/Adverse Reactions: Allergies Allergy/AdvReac Type Severity Reaction Status Date / Time No Known Allergies Allergy Verified 06/09/18 06:31 - Medications Medications: Current Medications Albuterol/Ipratropium (Duoneb 3 Mg/0.5 Mg (3 Ml) Ud) 3 ml INH RQ6 JULIO Last Admin: 06/10/18 01:08 Dose: 3 ml Dextrose (Dextrose 50% Inj) 0 ml IV STAT PRN; Protocol PRN Reason: Hypoglycemia Protocol Dextrose (Glutose 15) 15 gm PO ONCE PRN; Protocol PRN Reason: Hypoglycemia Protocol Glucagon (Glucagen Diagnostic Kit) 1 mg IM STAT PRN; Protocol PRN Reason: Hypoglycemia Protocol Heparin Sodium (Porcine) (Heparin) 5,000 units SC Q8 JULIO Last Admin: 06/10/18 06:00 Dose: Not Given Norepinephrine Bitartrate 4 mg (/ Dextrose) 250 mls @ 15 mls/hr IV .[id number] PRN; Protocol PRN Reason: TITRATE PER MD ORDER Last Admin: 06/10/18 05:20 Dose: 20 mcg/min, 75 mls/hr Dextrose (Dextrose 5% In Water 1000 Ml) 1,000 mls @ 0 mls/hr IV .Q0M PRN; Protocol PRN Reason: Hypoglycemia Protocol Piperacillin Sod/Tazobactam Sod (Zosyn 3.375 Gm Iv Premix) 3.375 gm in 50 mls @ 100 mls/hr IVPB Q6H JULIO; Protocol Last Admin: 06/10/18 05:25 Dose: 100 mls/hr Vasopressin 40 units/ Sodium (Chloride) 40 mls @ 0.6 mls/hr IV .Q24H JULIO; Protocol Last Admin: 06/10/18 07:00 Dose: 0.04 units/min, 2.4 mls/hr Phenylephrine HCl 30 mg/ (Sodium Chloride) 253 mls @ 10.12 mls/hr IV .Q24H PRN; Protocol PRN Reason: TITRATE PER MD ORDER Last Admin: 06/10/18 06:55 Dose: 120 mcg/min, 60.72 mls/hr Dopamine HCl/Dextrose (Dopamine 400mg/250ml D5w) 400 mg in 250 mls @ 7.202 mls/hr IV .Q24H PRN; Protocol PRN Reason: TITRATE PER MD ORDER Last Admin: 06/10/18 04:55 Dose: 20 mcg/kg/min, 72.02 mls/hr Insulin Human Regular 100 unit (/ Sodium Chloride) 100 mls @ 2 mls/hr IV .Q24H JULIO; Protocol Last Titration: 06/10/18 03:20 Dose: 6 units/hr, 6 mls/hr Pantoprazole Sodium (Protonix Inj) 40 mg IVP DAILY JULIO Results - Vital Signs Recent Vital Signs: Last Vital Signs Temp 90.7 F L 06/10/18 06:00 Pulse 70 06/10/18 07:00 Resp 18 06/10/18 07:00 BP 131/85 06/10/18 07:00 Pulse Ox 96 06/10/18 07:00 - Labs Result Diagrams: 06/10/18 00:57 06/10/18 02:31 Labs: Laboratory Results - last 24 hr 06/09/18 06/09/18 06/09/18 06:51 06:51 07:12 WBC RBC Hgb Hct MCV MCH MCHC RDW Plt Count MPV Neut % (Auto) Lymph % (Auto) Morris % (Auto) Eos % (Auto) Baso % (Auto) Neut # (Auto) Lymph # (Auto) Morris # (Auto) Eos # (Auto) Baso # (Auto) Neutrophils % (Manual) Band Neutrophils % Lymphocytes % (Manual) Reactive Lymphs % Monocytes % (Manual) Metamyelocytes % Platelet Estimate Polychromasia Poikilocytosis (manual Anisocytosis (manual) Rouleaux PT 52.4 H INR 4.8 APTT 48 H D-Dimer, Quantitative > 5250 H Puncture Site Lra pCO2 46 H pO2 230 H HCO3 6.7 L* ABG pH 6.91 L* ABG Total CO2 10.6 L ABG O2 Saturation 100.8 H ABG Base Excess -23.4 L ABG Hemoglobin ABG Carboxyhemoglobin POC ABG HHb (Measured) ABG Methemoglobin Leonardo Test Pos ABG Potassium 6.5 H* A-a O2 Difference 426.0 Respiratory Index 1.9 Hgb O2 Saturation Glucose 38 L* D Lactate 17.8 H* Vent Mode Prvc Mechanical Rate 16 FiO2 100.0 Tidal Volume 500 PEEP Crit Value Called To Dr mendes er Crit Value Called By Darian howard darklight inspector Crit Value Read Back Y Blood Gas Notified Time 718 Sodium 142 138.0 Potassium 5.4 H Chloride 108 H 105.0 Carbon Dioxide 12 L Anion Gap 27 H BUN 17 Creatinine 1.3 H Est GFR ( Amer) 49 Est GFR (Non-Af Amer) 40 POC Glucose (mg/dL) Random Glucose 40 L* D Calcium 9.6 Phosphorus Magnesium Total Bilirubin 1.0 AST 1105 H ALT 556 H D Alkaline Phosphatase 128 H Total Creatine Kinase 160 H CK-MB (Mass) 1.84 Troponin I 0.0320 NT-Pro-B Natriuret Pep 1030 H Total Protein 5.5 L Albumin 2.5 L D Globulin 3.0 Albumin/Globulin Ratio 0.8 L Arterial Blood Potassium 6.5 H* 06/09/18 06/09/18 06/09/18 10:28 11:40 14:12 WBC RBC Hgb Hct MCV MCH MCHC RDW Plt Count MPV Neut % (Auto) Lymph % (Auto) Morris % (Auto) Eos % (Auto) Baso % (Auto) Neut # (Auto) Lymph # (Auto) Morris # (Auto) Eos # (Auto) Baso # (Auto) Neutrophils % (Manual) Band Neutrophils % Lymphocytes % (Manual) Reactive Lymphs % Monocytes % (Manual) Metamyelocytes % Platelet Estimate Polychromasia Poikilocytosis (manual Anisocytosis (manual) Rouleaux PT INR APTT D-Dimer, Quantitative Puncture Site Rb pCO2 41 pO2 137 H HCO3 11.5 L ABG pH 7.08 L* ABG Total CO2 13.5 L ABG O2 Saturation 98.7 H ABG Base Excess -17.2 L ABG Hemoglobin ABG Carboxyhemoglobin POC ABG HHb (Measured) ABG Methemoglobin Leonardo Test Pos ABG Potassium 4.8 A-a O2 Difference 525.0 Respiratory Index 3.8 Hgb O2 Saturation Glucose 167 H Lactate 9.1 H* Vent Mode Mechanical Rate 14 FiO2 100.0 Tidal Volume 500 PEEP 5 Crit Value Called To Dr ca Crit Value Called By Lior patten shirring tender Crit Value Read Back Y Blood Gas Notified Time 1034 Sodium 139.0 Potassium Chloride 110.0 H Carbon Dioxide Anion Gap BUN Creatinine Est GFR ( Amer) Est GFR (Non-Af Amer) POC Glucose (mg/dL) 187 H 209 H Random Glucose Calcium Phosphorus Magnesium Total Bilirubin AST ALT Alkaline Phosphatase Total Creatine Kinase CK-MB (Mass) Troponin I NT-Pro-B Natriuret Pep Total Protein Albumin Globulin Albumin/Globulin Ratio Arterial Blood Potassium 4.8 06/09/18 06/09/18 06/09/18 15:37 16:09 17:18 WBC RBC Hgb Hct MCV MCH MCHC RDW Plt Count MPV Neut % (Auto) Lymph % (Auto) Morris % (Auto) Eos % (Auto) Baso % (Auto) Neut # (Auto) Lymph # (Auto) Morris # (Auto) Eos # (Auto) Baso # (Auto) Neutrophils % (Manual) Band Neutrophils % Lymphocytes % (Manual) Reactive Lymphs % Monocytes % (Manual) Metamyelocytes % Platelet Estimate Polychromasia Poikilocytosis (manual Anisocytosis (manual) Rouleaux PT INR APTT D-Dimer, Quantitative Puncture Site pCO2 pO2 HCO3 ABG pH ABG Total CO2 ABG O2 Saturation ABG Base Excess ABG Hemoglobin ABG Carboxyhemoglobin POC ABG HHb (Measured) ABG Methemoglobin Leonardo Test ABG Potassium A-a O2 Difference Respiratory Index Hgb O2 Saturation Glucose Lactate Vent Mode Mechanical Rate FiO2 Tidal Volume PEEP Crit Value Called To Crit Value Called By Michael Value Read Back Blood Gas Notified Time Sodium Potassium Chloride Carbon Dioxide Anion Gap BUN Creatinine Est GFR ( Amer) Est GFR (Non-Af Amer) POC Glucose (mg/dL) 251 H 240 H 280 H Random Glucose Calcium Phosphorus Magnesium Total Bilirubin AST ALT Alkaline Phosphatase Total Creatine Kinase CK-MB (Mass) Troponin I NT-Pro-B Natriuret Pep Total Protein Albumin Globulin Albumin/Globulin Ratio Arterial Blood Potassium 06/09/18 06/09/18 06/09/18 17:49 18:17 18:17 WBC 39.4 H* D RBC 3.53 L Hgb 9.2 L Hct 30.1 L MCV 85.4 D MCH 26.0 L MCHC 30.4 L RDW 15.8 H Plt Count 141 D MPV 7.3 Neut % (Auto) 93.1 H Lymph % (Auto) 2.4 L Morris % (Auto) 3.1 Eos % (Auto) 1.1 Baso % (Auto) 0.3 Neut # (Auto) 36.7 H Lymph # (Auto) 0.9 L Morris # (Auto) 1.2 H Eos # (Auto) 0.4 Baso # (Auto) 0.1 Neutrophils % (Manual) 84 H Band Neutrophils % 9 H Lymphocytes % (Manual) 2 L Reactive Lymphs % 1 H Monocytes % (Manual) 3 Metamyelocytes % 1 H Platelet Estimate Normal Polychromasia Slight Poikilocytosis (manual Anisocytosis (manual) Slight Rouleaux Slight PT 115.7 H D INR 10.5 D APTT 75 H D D-Dimer, Quantitative Puncture Site pCO2 pO2 HCO3 ABG pH ABG Total CO2 ABG O2 Saturation ABG Base Excess ABG Hemoglobin ABG Carboxyhemoglobin POC ABG HHb (Measured) ABG Methemoglobin Leonardo Test ABG Potassium A-a O2 Difference Respiratory Index Hgb O2 Saturation Glucose Lactate Vent Mode Mechanical Rate FiO2 Tidal Volume PEEP Crit Value Called To Crit Value Called By Crit Value Read Back Blood Gas Notified Time Sodium Potassium Chloride Carbon Dioxide Anion Gap BUN Creatinine Est GFR ( Amer) Est GFR (Non-Af Amer) POC Glucose (mg/dL) 288 H Random Glucose Calcium Phosphorus Magnesium Total Bilirubin AST ALT Alkaline Phosphatase Total Creatine Kinase CK-MB (Mass) Troponin I NT-Pro-B Natriuret Pep Total Protein Albumin Globulin Albumin/Globulin Ratio Arterial Blood Potassium 06/09/18 06/09/18 06/09/18 18:17 19:05 20:02 WBC RBC Hgb Hct MCV MCH MCHC RDW Plt Count MPV Neut % (Auto) Lymph % (Auto) Morris % (Auto) Eos % (Auto) Baso % (Auto) Neut # (Auto) Lymph # (Auto) Morris # (Auto) Eos # (Auto) Baso # (Auto) Neutrophils % (Manual) Band Neutrophils % Lymphocytes % (Manual) Reactive Lymphs % Monocytes % (Manual) Metamyelocytes % Platelet Estimate Polychromasia Poikilocytosis (manual Anisocytosis (manual) Rouleaux PT INR APTT D-Dimer, Quantitative Puncture Site pCO2 pO2 HCO3 ABG pH ABG Total CO2 ABG O2 Saturation ABG Base Excess ABG Hemoglobin ABG Carboxyhemoglobin POC ABG HHb (Measured) ABG Methemoglobin Leonardo Test ABG Potassium A-a O2 Difference Respiratory Index Hgb O2 Saturation Glucose Lactate Vent Mode Mechanical Rate FiO2 Tidal Volume PEEP Crit Value Called To Crit Value Called By Crit Value Read Back Blood Gas Notified Time Sodium 136 Potassium 5.3 H Chloride 98 Carbon Dioxide 17 L Anion Gap 26 H BUN 22 H Creatinine 1.7 H Est GFR ( Amer) 36 Est GFR (Non-Af Amer) 30 POC Glucose (mg/dL) 274 H 278 H Random Glucose 276 H Calcium 7.2 L Phosphorus Magnesium 2.7 H Total Bilirubin AST ALT Alkaline Phosphatase Total Creatine Kinase CK-MB (Mass) Troponin I NT-Pro-B Natriuret Pep Total Protein Albumin Globulin Albumin/Globulin Ratio Arterial Blood Potassium 06/09/18 06/09/18 06/09/18 20:49 21:57 22:48 WBC RBC Hgb Hct MCV MCH MCHC RDW Plt Count MPV Neut % (Auto) Lymph % (Auto) Morris % (Auto) Eos % (Auto) Baso % (Auto) Neut # (Auto) Lymph # (Auto) Morris # (Auto) Eos # (Auto) Baso # (Auto) Neutrophils % (Manual) Band Neutrophils % Lymphocytes % (Manual) Reactive Lymphs % Monocytes % (Manual) Metamyelocytes % Platelet Estimate Polychromasia Poikilocytosis (manual Anisocytosis (manual) Rouleaux PT INR APTT D-Dimer, Quantitative Puncture Site pCO2 pO2 HCO3 ABG pH ABG Total CO2 ABG O2 Saturation ABG Base Excess ABG Hemoglobin ABG Carboxyhemoglobin POC ABG HHb (Measured) ABG Methemoglobin Leonardo Test ABG Potassium A-a O2 Difference Respiratory Index Hgb O2 Saturation Glucose Lactate Vent Mode Mechanical Rate FiO2 Tidal Volume PEEP Crit Value Called To Crit Value Called By Crit Value Read Back Blood Gas Notified Time Sodium Potassium Chloride Carbon Dioxide Anion Gap BUN Creatinine Est GFR ( Amer) Est GFR (Non-Af Amer) POC Glucose (mg/dL) 269 H 301 H 314 H Random Glucose Calcium Phosphorus Magnesium Total Bilirubin AST ALT Alkaline Phosphatase Total Creatine Kinase CK-MB (Mass) Troponin I NT-Pro-B Natriuret Pep Total Protein Albumin Globulin Albumin/Globulin Ratio Arterial Blood Potassium 06/10/18 06/10/18 06/10/18 00:02 00:45 00:57 WBC 41.3 H* RBC 3.68 L Hgb 9.6 L Hct 31.8 L MCV 86.3 MCH 26.0 L MCHC 30.2 L RDW 16.3 H Plt Count 138 MPV 8.3 Neut % (Auto) 94.9 H Lymph % (Auto) 2.0 L Morris % (Auto) 0.9 Eos % (Auto) 1.6 Baso % (Auto) 0.6 Neut # (Auto) 39.2 H Lymph # (Auto) 0.8 L Morris # (Auto) 0.4 Eos # (Auto) 0.6 Baso # (Auto) 0.2 Neutrophils % (Manual) 85 H Band Neutrophils % 11 H* Lymphocytes % (Manual) 1 L Reactive Lymphs % Monocytes % (Manual) 1 Metamyelocytes % 2 H Platelet Estimate Normal Polychromasia Poikilocytosis (manual Slight Anisocytosis (manual) Slight Rouleaux PT INR APTT D-Dimer, Quantitative Puncture Site pCO2 pO2 HCO3 ABG pH ABG Total CO2 ABG O2 Saturation ABG Base Excess ABG Hemoglobin ABG Carboxyhemoglobin POC ABG HHb (Measured) ABG Methemoglobin Leonardo Test ABG Potassium A-a O2 Difference Respiratory Index Hgb O2 Saturation Glucose Lactate Vent Mode Mechanical Rate FiO2 Tidal Volume PEEP Crit Value Called To Crit Value Called By Crit Value Read Back Blood Gas Notified Time Sodium Potassium Chloride Carbon Dioxide Anion Gap BUN Creatinine Est GFR ( Amer) Est GFR (Non-Af Amer) POC Glucose (mg/dL) 317 H 353 H Random Glucose Calcium Phosphorus Magnesium Total Bilirubin AST ALT Alkaline Phosphatase Total Creatine Kinase CK-MB (Mass) Troponin I NT-Pro-B Natriuret Pep Total Protein Albumin Globulin Albumin/Globulin Ratio Arterial Blood Potassium 06/10/18 06/10/18 06/10/18 00:57 02:19 02:31 WBC RBC Hgb Hct MCV MCH MCHC RDW Plt Count MPV Neut % (Auto) Lymph % (Auto) Morris % (Auto) Eos % (Auto) Baso % (Auto) Neut # (Auto) Lymph # (Auto) Morris # (Auto) Eos # (Auto) Baso # (Auto) Neutrophils % (Manual) Band Neutrophils % Lymphocytes % (Manual) Reactive Lymphs % Monocytes % (Manual) Metamyelocytes % Platelet Estimate Polychromasia Poikilocytosis (manual Anisocytosis (manual) Rouleaux PT 109.1 H D INR 9.9 APTT 73 H D-Dimer, Quantitative Puncture Site pCO2 pO2 HCO3 ABG pH ABG Total CO2 ABG O2 Saturation ABG Base Excess ABG Hemoglobin ABG Carboxyhemoglobin POC ABG HHb (Measured) ABG Methemoglobin Leonardo Test ABG Potassium A-a O2 Difference Respiratory Index Hgb O2 Saturation Glucose Lactate Vent Mode Mechanical Rate FiO2 Tidal Volume PEEP Crit Value Called To Crit Value Called By Crit Value Read Back Blood Gas Notified Time Sodium 132 Potassium 5.2 Chloride 95 L Carbon Dioxide 15 L Anion Gap 27 H BUN 24 H Creatinine 1.8 H Est GFR ( Amer) 34 Est GFR (Non-Af Amer) 28 POC Glucose (mg/dL) 344 H Random Glucose 347 H Calcium 7.0 L Phosphorus 10.3 H Magnesium 2.6 H Total Bilirubin 3.6 H AST 82189 H ALT 4123 H Alkaline Phosphatase 161 H D Total Creatine Kinase CK-MB (Mass) Troponin I NT-Pro-B Natriuret Pep Total Protein 4.8 L Albumin 2.3 L Globulin 2.6 Albumin/Globulin Ratio 0.9 L Arterial Blood Potassium 06/10/18 06/10/18 06/10/18 03:19 04:17 04:45 WBC RBC Hgb Hct MCV MCH MCHC RDW Plt Count MPV Neut % (Auto) Lymph % (Auto) Morris % (Auto) Eos % (Auto) Baso % (Auto) Neut # (Auto) Lymph # (Auto) Morris # (Auto) Eos # (Auto) Baso # (Auto) Neutrophils % (Manual) Band Neutrophils % Lymphocytes % (Manual) Reactive Lymphs % Monocytes % (Manual) Metamyelocytes % Platelet Estimate Polychromasia Poikilocytosis (manual Anisocytosis (manual) Rouleaux PT INR APTT D-Dimer, Quantitative Puncture Site Rb pCO2 44 pO2 99 HCO3 9.6 L* ABG pH 7.00 L* ABG Total CO2 12.3 L ABG O2 Saturation 98.2 H ABG Base Excess -19.6 L ABG Hemoglobin 10.3 L ABG Carboxyhemoglobin 1.6 H POC ABG HHb (Measured) 1.8 ABG Methemoglobin 0.8 Leonardo Test Na ABG Potassium A-a O2 Difference 416.0 Respiratory Index 4.2 Hgb O2 Saturation 95.8 Glucose Lactate Vent Mode Prvc Mechanical Rate 18 FiO2 80.0 Tidal Volume 500 PEEP 5 Crit Value Called To Catherine barnett/rn Crit Value Called By Gunner qureshi/rt Crit Value Read Back Y Blood Gas Notified Time 505 Sodium Potassium Chloride Carbon Dioxide Anion Gap BUN Creatinine Est GFR ( Amer) Est GFR (Non-Af Amer) POC Glucose (mg/dL) 353 H 365 H Random Glucose Calcium Phosphorus Magnesium Total Bilirubin AST ALT Alkaline Phosphatase Total Creatine Kinase CK-MB (Mass) Troponin I NT-Pro-B Natriuret Pep Total Protein Albumin Globulin Albumin/Globulin Ratio Arterial Blood Potassium 06/10/18 05:00 WBC RBC Hgb Hct MCV MCH MCHC RDW Plt Count MPV Neut % (Auto) Lymph % (Auto) Morris % (Auto) Eos % (Auto) Baso % (Auto) Neut # (Auto) Lymph # (Auto) Morris # (Auto) Eos # (Auto) Baso # (Auto) Neutrophils % (Manual) Band Neutrophils % Lymphocytes % (Manual) Reactive Lymphs % Monocytes % (Manual) Metamyelocytes % Platelet Estimate Polychromasia Poikilocytosis (manual Anisocytosis (manual) Rouleaux PT INR APTT D-Dimer, Quantitative Puncture Site pCO2 pO2 HCO3 ABG pH ABG Total CO2 ABG O2 Saturation ABG Base Excess ABG Hemoglobin ABG Carboxyhemoglobin POC ABG HHb (Measured) ABG Methemoglobin Leonardo Test ABG Potassium A-a O2 Difference Respiratory Index Hgb O2 Saturation Glucose Lactate Vent Mode Mechanical Rate FiO2 Tidal Volume PEEP Crit Value Called To Crit Value Called By Crit Value Read Back Blood Gas Notified Time Sodium Potassium Chloride Carbon Dioxide Anion Gap BUN Creatinine Est GFR ( Amer) Est GFR (Non-Af Amer) POC Glucose (mg/dL) 359 H Random Glucose Calcium Phosphorus Magnesium Total Bilirubin AST ALT Alkaline Phosphatase Total Creatine Kinase CK-MB (Mass) Troponin I NT-Pro-B Natriuret Pep Total Protein Albumin Globulin Albumin/Globulin Ratio Arterial Blood Potassium
[2018-06-10 08:02] LABS: CALCIUM 6.7 mg/dl (8.6-10.4)
[2018-06-10 08:04] LABS: INR 9.9
[2018-06-10 08:06] LABS: INR > 10.0
[2018-06-10 08:08] LABS: PARTIAL THROMBOPLASTIN TIME 71 SECONDS (21-34); PROTHROMBIN TIME > 320.0 SECONDS (9.7-12.2)
[2018-06-10 08:09] LABS: BASO # 0.1 K/uL (0.0-0.2); BASO % 0.2 % (0.0-2.0); EOS # 0.4 K/uL (0.0-0.7); EOS % 1.2 % (0.0-4.0); LYMPH # 1.1 K/uL (1.0-4.3); LYMPH % 3.3 % (20.0-40.0); MEAN CELL VOLUME 86.7 fL (81.0-99.0); MEAN CORPUSCULAR HEMOGLOBIN 25.8 pg (27.0-31.0); MEAN CORPUSCULAR HGB CONC 29.7 g/dL (33.0-37.0); MEAN PLATELET VOLUME 7.5 fL (7.2-11.7); MONO # 0.8 K/uL (0.0-0.8); MONO % 2.7 % (0.0-10.0); NEUT # 29.2 K/uL (1.8-7.0); NEUT % 92.6 % (50.0-75.0); NRBC % 0.3 % (0.0-2.0); RED CELL DISTRIBUTION WIDTH 15.5 % (11.5-14.5); WHITE BLOOD COUNT 31.5 K/uL (4.8-10.8)
[2018-06-10 08:10] LABS: HEMOGLOBIN 7.5 g/dL (11.0-16.0); PLATELET COUNT 103 K/uL (130-400)
[2018-06-10 08:50] LABS: ANISOCYTOSIS SLIGHT; BANDS 20 % (0-2); HYPOCHROMIC SLIGHT; LYMPHOCYTE 4 % (20-40); MONOCYTE 2 % (0-10); NEUTROPHIL 74 % (50-75); PLATELET ESTIMATE SLIGHTLY DECREASED (NORMAL); POIKILOCYTOSIS SLIGHT; TOTAL CELLS COUNTED 100
[2018-06-10 08:51] LABS: BURR CELLS SLIGHT
[2018-06-10 08:54] LABS: GIANT PLATELETS PRESENT; LARGE PLATELETS PRESENT; OVALOCYTES SLIGHT
--- NOTE | 2018-06-10 09:07 | RAD ---
Date of service: 06/10/2018 HISTORY: s/p intubation COMPARISON: Portable chest 06/09/2018. FINDINGS: LUNGS: Endotracheal tube unchanged in position. Nasogastric tube is been inserted in the interval with tip turning at the gastric viscus left upper quadrant abdomen. Right upper lobe infiltrate persists if not increased slightly. Borderline right lower lobe airspace disease laterally. No left-sided airspace disease. PLEURA: Pleural effusion not excluded. None is seen at the left. No pneumothorax bilaterally. CARDIOVASCULAR: Stable cardiac silhouette no pulmonary vascular congestion. OSSEOUS STRUCTURES: No significant abnormalities. VISUALIZED UPPER ABDOMEN: Normal. OTHER FINDINGS: None. IMPRESSION: Persistent if not slightly increased right upper lobe infiltrate. Trace right pleural effusion. Borderline airspace disease right base laterally. Adequate nasogastric tube placement.
[2018-06-10] MEDS ORDERED: Sodium Bicarbonate (8.4%) 50 Meq Syringe ONE (10:39)
[2018-06-10] MEDS ORDERED: Vancomycin 1 gm/NS 200 ml 1 GM/200 ML BAG IVPB STA (10:48)
[2018-06-10 10:53] LABS: VENOUS BLOOD GAS BASE EXCESS -17.7 mmol/L (0.0-2.0); VENOUS BLOOD GAS PCO2 61 mmHg (40-60); VENOUS BLOOD GAS PO2 18 mm/Hg (30-55); VENOUS BLOOD PH 6.98 (7.32-7.43)
[2018-06-10] MEDS ORDERED: Piperacill/Tazo 2.25gm in Dex 2.25 GM/50 ML BAG IVPB SCH (11:00)
[2018-06-10] MEDS ORDERED: WATER IV PRN (11:45)
[2018-06-10] MEDS ORDERED: NOREPINEPHRINE IV PRN (11:45)
[2018-06-10] MEDS ORDERED: DEXTROSE 5% IV PRN (11:45)
[2018-06-10] MEDS: Insulin Human Regular 100 UNIT in Sodium Chloride 0.9% 99 ML IV SCH (11:49)
--- NOTE | 2018-06-10 13:53 | CP.PCM.CON ---
History of Present Illness - History of Present Illness History of Present Illness: Palliative consult requested by Doctor Rony for goals of care discussion Patient is a 72 yo female admitted from home, after cardiac arrest. Per report, patient collapsed in front of her son. EMS arrived, administered CPR and few rou nds of Epi. Patient intubated on the field and transferred to ICU. CT head negative acute bleeding. EEG showed global brain disfunction as reported by Doctor Huang oH. Patient's BP and HR are critically loww despite all reasonable interventions; BP 60/25, HR 30 this morning. Levophed, Vasopressin and Phenylepinephrine on board. WBC 31.5, Hb 7.5, VBG PH 6.9. PMH: CHF, asthma, seizures, osteoporosis, COPD Soc. Hx: , is currently hospitalized at room 661, lives at home, was her account executive healthcare, multiple children Fam. Hx: denied Review of Systems - Review of Systems All systems: reviewed and no additional remarkable complaints except Review of Systems: ROS unobtainable from patient due to condition. ROS obtained from nursing. Per nursing patient has been critically bradicardic and hypotensive. All measures in place Past Patient History - Infectious Disease Hx of Infectious Diseases: None - Past Medical History & Family History Past Medical History?: Yes - Past Social History Smoking Status: Unknown If Ever Smoked - CARDIAC Hx Congestive Heart Failure: Yes Hx Hypercholesterolemia: Yes Hx Hypertension: Yes - PULMONARY Hx Asthma: Yes Hx Chronic Obstructive Pulmonary Disease (COPD): Yes Hx Emphysema: Yes - NEUROLOGICAL Hx Seizures: Yes - HEENT Hx HEENT Problems: No - RENAL Hx Chronic Kidney Disease: No - ENDOCRINE/METABOLIC Hx Endocrine Disorders: No - HEMATOLOGICAL/ONCOLOGICAL Hx Blood Disorders: No - INTEGUMENTARY Hx Dermatological Problems: No - MUSCULOSKELETAL/RHEUMATOLOGICAL Hx Falls: Yes - GASTROINTESTINAL Hx Gastrointestinal Disorders: No - GENITOURINARY/GYNECOLOGICAL Hx Genitourinary Disorders: No - PSYCHIATRIC Hx Substance Use: No - SURGICAL HISTORY Hx Surgeries: No - ANESTHESIA Hx Anesthesia: No Hx Anesthesia Reactions: No Hx Malignant Hyperthermia: No Has any member of the family had a problem w/ anesthesia?: No Meds Allergies/Adverse Reactions: Allergies Allergy/AdvReac Type Severity Reaction Status Date / Time No Known Allergies Allergy Verified 06/09/18 06:31 - Medications Medications: Current Medications Albuterol/Ipratropium (Duoneb 3 Mg/0.5 Mg (3 Ml) Ud) 3 ml INH RQ6 JULIO Last Admin: 06/10/18 08:20 Dose: 3 ml Dextrose (Dextrose 50% Inj) 0 ml IV STAT PRN; Protocol PRN Reason: Hypoglycemia Protocol Dextrose (Glutose 15) 15 gm PO ONCE PRN; Protocol PRN Reason: Hypoglycemia Protocol Glucagon (Glucagen Diagnostic Kit) 1 mg IM STAT PRN; Protocol PRN Reason: Hypoglycemia Protocol Heparin Sodium (Porcine) (Heparin) 5,000 units SC Q8 JULIO Last Admin: 06/10/18 06:00 Dose: Not Given Dextrose (Dextrose 5% In Water 1000 Ml) 1,000 mls @ 0 mls/hr IV .Q0M PRN; P rotocol PRN Reason: Hypoglycemia Protocol Vasopressin 40 units/ Sodium (Chloride) 40 mls @ 0.6 mls/hr IV .Q24H JULIO; Protocol Last Admin: 06/10/18 11:58 Dose: Not Given Phenylephrine HCl 30 mg/ (Sodium Chloride) 253 mls @ 10.12 mls/hr IV .Q24H PRN; Protocol PRN Reason: TITRATE PER MD ORDER Last Admin: 06/10/18 11:39 Dose: 180 mcg/min, 91.08 mls/hr Dopamine HCl/Dextrose (Dopamine 400mg/250ml D5w) 400 mg in 250 mls @ 7.202 mls/hr IV .Q24H PRN; Protocol PRN Reason: TITRATE PER MD ORDER Last Admin: 06/10/18 11:55 Dose: 20 mcg/kg/min, 72.02 mls/hr Piperacillin Sod/Tazobactam Sod (Zosyn 2.25 Gm Iv Premix) 2.25 gm in 50 mls @ 100 mls/hr IVPB Q6H JULIO; Protocol Sodium Bicarbonate 150 meq/ (Sodium Chloride) 1,150 mls @ 50 mls/hr IV .Q23H JULIO Last Admin: 06/10/18 11:36 Dose: 50 mls/hr Norepinephrine Bitartrate 8 mg (/ Dextrose) 500 mls @ 15 mls/hr IV .Q24H PRN; Protocol PRN Reason: TITRATE PER MD ORDER Last Admin: 06/10/18 12:49 Dose: 4 mcg/min, 15 mls/hr Pantoprazole Sodium (Protonix Inj) 40 mg IVP DAILY [facility] Last Admin: 06/10/18 10:00 Dose: 40 mg Physical Exam - Constitutional Appears: In Acute Distress - Head Exam Head Exam: ATRAUMATIC, NORMAL INSPECTION, NORMOCEPHALIC - Eye Exam Eye Exam: Normal appearance Pupil Exam: Fixed - ENT Exam ENT Exam: Normal Exam Additional comments: ETT tube - Neck Exam Neck exam: Positive for: Normal Inspection Additional comments: Inubated - Respiratory Exam Additional comments: On MV support - Cardiovascular Exam Cardiovascular Exam: Bradycardia - GI/Abdominal Exam GI & Abdominal Exam: Hypoactive Bowel Sounds, Soft - Rectal Exam Rectal Exam: Deferred - Extremities Exam Extremities exam: Positive for: pedal edema - Back Exam Back exam: NORMAL INSPECTION - Neurological Exam Neurological exam: Motor Sensory Deficit - Psychiatric Exam Psychiatric exam: Flat Affect - Skin Skin Exam: Dry, Intact, Pallor, Warm Results - Vital Signs Recent Vital Signs: Last Vital Signs Temp 91.4 F L 06/10/18 13:15 Pulse 81 06/10/18 13:15 Resp 28 H 06/10/18 13:15 BP 40/20 L 06/10/18 13:15 Pulse Ox 93 L 06/10/18 12:49 - Labs Result Diagrams: 06/10/18 07:39 06/10/18 07:39 Labs: Laboratory Results - last 24 hr 06/09/18 06/09/18 06/09/18 14:12 15:37 16:09 WBC RBC Hgb Hct MCV MCH MCHC RDW Plt Count MPV Neut % (Auto) Lymph % (Auto) [place] % (Auto) Eos % (Auto) Baso % (Auto) Neut # (Auto) Lymph # (Auto) [place] # (Auto) Eos # (Auto) Baso # (Auto) Neutrophils % (Manual) Band Neutrophils % Lymphocytes % (Manual) Reactive Lymphs % Monocytes % (Manual) Metamyelocytes % Platelet Estimate Large Platelets Giant Platelets Polychromasia Hypochromasia (manual) Poikilocytosis (manual Anisocytosis (manual) Ovalocytes Leni Cells Rouleaux Smear Path Review PT INR APTT Puncture Site pCO2 pO2 HCO3 ABG pH ABG Total CO2 ABG O2 Saturation ABG Base Excess ABG Hemoglobin ABG Carboxyhemoglobin POC ABG HHb (Measured) ABG Methemoglobin Leonardo Test VBG pH VBG pCO2 VBG HCO3 VBG Total CO2 VBG O2 Sat (Calc) VBG Base Excess VBG Potassium A-a O2 Difference Respiratory Index Hgb O2 Saturation Glucose Lactate Vent Mode Mechanical Rate FiO2 Tidal Volume PEEP Crit Value Called To Crit Value Called By Crit Value Read Back Blood Gas Notified Time Sodium Potassium Chloride Carbon Dioxide Anion Gap BUN Creatinine Est GFR ( Amer) Est GFR (Non-Af Amer) POC Glucose (mg/dL) 209 H 251 H 240 H Random Glucose Calcium Phosphorus Magnesium Total Bilirubin AST ALT Alkaline Phosphatase Total Protein Albumin Globulin Albumin/Globulin Ratio Venous Blood Potassium Blood Type Antibody Screen 06/09/18 06/09/18 06/09/18 17:18 17:49 18:17 WBC 39.4 H* D RBC 3.53 L Hgb 9.2 L Hct 30.1 L MCV 85.4 D MCH 26.0 L MCHC 30.4 L RDW 15.8 H Plt Count 141 D MPV 7.3 Neut % (Auto) 93.1 H Lymph % (Auto) 2.4 L [place] % (Auto) 3.1 Eos % (Auto) 1.1 Baso % (Auto) 0.3 Neut # (Auto) 36.7 H Lymph # (Auto) 0.9 L [place] # (Auto) 1.2 H Eos # (Auto) 0.4 Baso # (Auto) 0.1 Neutrophils % (Manual) 84 H Band Neutrophils % 9 H Lymphocytes % (Manual) 2 L Reactive Lymphs % 1 H Monocytes % (Manual) 3 Metamyelocytes % 1 H Platelet Estimate Normal Large Platelets Giant Platelets Polychromasia Slight Hypochromasia (manual) Poikilocytosis (manual Anisocytosis (manual) Slight Ovalocytes [place] Cells Rouleaux Slight Smear Path Review PT INR APTT Puncture Site pCO2 pO2 HCO3 ABG pH ABG Total CO2 ABG O2 Saturation ABG Base Excess ABG Hemoglobin ABG Carboxyhemoglobin POC ABG HHb (Measured) ABG Methemoglobin Leonardo Test VBG pH VBG pCO2 VBG HCO3 VBG Total CO2 VBG O2 Sat (Calc) VBG Base Excess VBG Potassium A-a O2 Difference Respiratory Index Hgb O2 Saturation Glucose Lactate Vent Mode Mechanical Rate FiO2 Tidal Volume PEEP Crit Value Called To Crit Value Called By Crit Value Read Back Blood Gas Notified Time Sodium Potassium Chloride Carbon Dioxide Anion Gap BUN Creatinine Est GFR ( Amer) Est GFR (Non-Af Amer) POC Glucose (mg/dL) 280 H 288 H Random Glucose Calcium Phosphorus Magnesium Total Bilirubin AST ALT Alkaline Phosphatase Total Protein Albumin Globulin Albumin/Globulin Ratio Venous Blood Potassium Blood Type Antibody Screen 06/09/18 06/09/18 06/09/18 18:17 18:17 19:05 WBC RBC Hgb Hct MCV MCH MCHC RDW Plt Count MPV Neut % (Auto) Lymph % (Auto) [place] % (Auto) Eos % (Auto) Baso % (Auto) Neut # (Auto) Lymph # (Auto) [place] # (Auto) Eos # (Auto) Baso # (Auto) Neutrophils % (Manual) Band Neutrophils % Lymphocytes % (Manual) Reactive Lymphs % Monocytes % (Manual) Metamyelocytes % Platelet Estimate Large Platelets Giant Platelets Polychromasia Hypochromasia (manual) Poikilocytosis (manual Anisocytosis (manual) Ovalocytes Leni Cells Rouleaux Smear Path Review PT 115.7 H D INR 10.5 D APTT 75 H D Puncture Site pCO2 pO2 HCO3 ABG pH ABG Total CO2 ABG O2 Saturation ABG Base Excess ABG Hemoglobin ABG Carboxyhemoglobin POC ABG HHb (Measured) ABG Methemoglobin Leonardo Test VBG pH VBG pCO2 VBG HCO3 VBG Total CO2 VBG O2 Sat (Calc) VBG Base Excess VBG Potassium A-a O2 Difference Respiratory Index Hgb O2 Saturation Glucose Lactate Vent Mode Mechanical Rate FiO2 Tidal Volume PEEP Crit Value Called To Crit Value Called By Crit Value Read Back Blood Gas Notified Time Sodium 136 Potassium 5.3 H Chloride 98 Carbon Dioxide 17 L Anion Gap 26 H BUN 22 H Creatinine 1.7 H Est GFR ( Amer) 36 Est GFR (Non-Af Amer) 30 POC Glucose (mg/dL) 274 H Random Glucose 276 H Calcium 7.2 L Phosphorus Magnesium 2.7 H Total Bilirubin AST ALT Alkaline Phosphatase Total Protein Albumin Globulin Albumin/Globulin Ratio Venous Blood Potassium Blood Type Antibody Screen 06/09/18 06/09/18 06/09/18 20:02 20:49 21:57 WBC RBC Hgb Hct MCV MCH MCHC RDW Plt Count MPV Neut % (Auto) Lymph % (Auto) [place] % (Auto) Eos % (Auto) Baso % (Auto) Neut # (Auto) Lymph # (Auto) [place] # (Auto) Eos # (Auto) Baso # (Auto) Neutrophils % (Manual) Band Neutrophils % Lymphocytes % (Manual) Reactive Lymphs % Monocytes % (Manual) Metamyelocytes % Platelet Estimate Large Platelets Giant Platelets Polychromasia Hypochromasia (manual) Poikilocytosis (manual Anisocytosis (manual) Ovalocytes [place] Cells Rouleaux Smear Path Review PT INR APTT Puncture Site pCO2 pO2 HCO3 ABG pH ABG Total CO2 ABG O2 Saturation ABG Base Excess ABG Hemoglobin ABG Carboxyhemoglobin POC ABG HHb (Measured) ABG Methemoglobin Leonardo Test VBG pH VBG pCO2 VBG HCO3 VBG Total CO2 VBG O2 Sat (Calc) VBG Base Excess VBG Potassium A-a O2 Difference Respiratory Index Hgb O2 Saturation Glucose Lactate Vent Mode Mechanical Rate FiO2 Tidal Volume PEEP Crit Value Called To Crit Value Called By Crit Value Read Back Blood Gas Notified Time Sodium Potassium Chloride Carbon Dioxide Anion Gap BUN Creatinine Est GFR ( Amer) Est GFR (Non-Af Amer) POC Glucose (mg/dL) 278 H 269 H 301 H Random Glucose Calcium Phosphorus Magnesium Total Bilirubin AST ALT Alkaline Phosphatase Total Protein Albumin Globulin Albumin/Globulin Ratio Venous Blood Potassium Blood Type Antibody Screen 06/09/18 06/10/18 06/10/18 22:48 00:02 00:45 WBC RBC Hgb Hct MCV MCH MCHC RDW Plt Count MPV Neut % (Auto) Lymph % (Auto) [place] % (Auto) Eos % (Auto) Baso % (Auto) Neut # (Auto) Lymph # (Auto) [place] # (Auto) Eos # (Auto) Baso # (Auto) Neutrophils % (Manual) Band Neutrophils % Lymphocytes % (Manual) Reactive Lymphs % Monocytes % (Manual) Metamyelocytes % Platelet Estimate Large Platelets Giant Platelets Polychromasia Hypochromasia (manual) Poikilocytosis (manual Anisocytosis (manual) Ovalocytes Leni Cells Rouleaux Smear Path Review PT INR APTT Puncture Site pCO2 pO2 HCO3 ABG pH ABG Total CO2 ABG O2 Saturation ABG Base Excess ABG Hemoglobin ABG Carboxyhemoglobin POC ABG HHb (Measured) ABG Methemoglobin Leonardo Test VBG pH VBG pCO2 VBG HCO3 VBG Total CO2 VBG O2 Sat (Calc) VBG Base Excess VBG Potassium A-a O2 Difference Respiratory Index Hgb O2 Saturation Glucose Lactate Vent Mode Mechanical Rate FiO2 Tidal Volume PEEP Crit Value Called To Crit Value Called By Crit Value Read Back Blood Gas Notified Time Sodium Potassium Chloride Carbon Dioxide Anion Gap BUN Creatinine Est GFR ( Amer) Est GFR (Non-Af Amer) POC Glucose (mg/dL) 314 H 317 H 353 H Random Glucose Calcium Phosphorus Magnesium Total Bilirubin AST ALT Alkaline Phosphatase Total Protein Albumin Globulin Albumin/Globulin Ratio Venous Blood Potassium Blood Type Antibody Screen 06/10/18 06/10/18 06/10/18 00:57 00:57 02:19 WBC 41.3 H* RBC 3.68 L Hgb 9.6 L Hct 31.8 L MCV 86.3 MCH 26.0 L MCHC 30.2 L RDW 16.3 H Plt Count 138 MPV 8.3 Neut % (Auto) 94.9 H Lymph % (Auto) 2.0 L [place] % (Auto) 0.9 Eos % (Auto) 1.6 Baso % (Auto) 0.6 Neut # (Auto) 39.2 H Lymph # (Auto) 0.8 L [place] # (Auto) 0.4 Eos # (Auto) 0.6 Baso # (Auto) 0.2 Neutrophils % (Manual) 85 H Band Neutrophils % 11 H* Lymphocytes % (Manual) 1 L Reactive Lymphs % Monocytes % (Manual) 1 Metamyelocytes % 2 H Platelet Estimate Normal Large Platelets Giant Platelets Polychromasia Hypochromasia (manual) Poikilocytosis (manual Slight Anisocytosis (manual) Slight Ovalocytes Leni Cells Rouleaux Smear Path Review PT 109.1 H D INR 9.9 APTT 73 H Puncture Site pCO2 pO2 HCO3 ABG pH ABG Total CO2 ABG O2 Saturation ABG Base Excess ABG Hemoglobin ABG Carboxyhemoglobin POC ABG HHb (Measured) ABG Methemoglobin Leonardo Test VBG pH VBG pCO2 VBG HCO3 VBG Total CO2 VBG O2 Sat (Calc) VBG Base Excess VBG Potassium A-a O2 Difference Respiratory Index Hgb O2 Saturation Glucose Lactate Vent Mode Mechanical Rate FiO2 Tidal Volume PEEP Crit Value Called To Crit Value Called By Crit Value Read Back Blood Gas Notified Time Sodium Potassium Chloride Carbon Dioxide Anion Gap BUN Creatinine Est GFR ( Amer) Est GFR (Non-Af Amer) POC Glucose (mg/dL) 344 H Random Glucose Calcium Phosphorus Magnesium Total Bilirubin AST ALT Alkaline Phosphatase Total Protein Albumin Globulin Albumin/Globulin Ratio Venous Blood Potassium Blood Type Antibody Screen 06/10/18 06/10/18 06/10/18 02:31 03:19 04:17 WBC RBC Hgb Hct MCV MCH MCHC RDW Plt Count MPV Neut % (Auto) Lymph % (Auto) [place] % (Auto) Eos % (Auto) Baso % (Auto) Neut # (Auto) Lymph # (Auto) [place] # (Auto) Eos # (Auto) Baso # (Auto) Neutrophils % (Manual) Band Neutrophils % Lymphocytes % (Manual) Reactive Lymphs % Monocytes % (Manual) Metamyelocytes % Platelet Estimate Large Platelets Giant Platelets Polychromasia Hypochromasia (manual) Poikilocytosis (manual Anisocytosis (manual) Ovalocytes [place] Cells Rouleaux Smear Path Review PT INR APTT Puncture Site pCO2 pO2 HCO3 ABG pH ABG Total CO2 ABG O2 Saturation ABG Base Excess ABG Hemoglobin ABG Carboxyhemoglobin POC ABG HHb (Measured) ABG Methemoglobin Leonardo Test VBG pH VBG pCO2 VBG HCO3 VBG Total CO2 VBG O2 Sat (Calc) VBG Base Excess VBG Potassium A-a O2 Difference Respiratory Index Hgb O2 Saturation Glucose Lactate Vent Mode Mechanical Rate FiO2 Tidal Volume PEEP Crit Value Called To Crit Value Called By Crit Value Read Back Blood Gas Notified Time Sodium 132 Potassium 5.2 Chloride 95 L Carbon Dioxide 15 L Anion Gap 27 H BUN 24 H Creatinine 1.8 H Est GFR ( Amer) 34 Est GFR (Non-Af Amer) 28 POC Glucose (mg/dL) 353 H 365 H Random Glucose 347 H Calcium 7.0 L Phosphorus 10.3 H Magnesium 2.6 H Total Bilirubin 3.6 H AST 74525 H ALT 4123 H Alkaline Phosphatase 161 H D Total Protein 4.8 L Albumin 2.3 L Globulin 2.6 Albumin/Globulin Ratio 0.9 L Venous Blood Potassium Blood Type Antibody Screen 06/10/18 06/10/18 06/10/18 04:45 05:00 06:17 WBC RBC Hgb Hct MCV MCH MCHC RDW Plt Count MPV Neut % (Auto) Lymph % (Auto) [place] % (Auto) Eos % (Auto) Baso % (Auto) Neut # (Auto) Lymph # (Auto) [place] # (Auto) Eos # (Auto) Baso # (Auto) Neutrophils % (Manual) Band Neutrophils % Lymphocytes % (Manual) Reactive Lymphs % Monocytes % (Manual) Metamyelocytes % Platelet Estimate Large Platelets Giant Platelets Polychromasia Hypochromasia (manual) Poikilocytosis (manual Anisocytosis (manual) Ovalocytes [place] Cells Rouleaux Smear Path Review PT INR APTT Puncture Site Rb pCO2 44 pO2 99 HCO3 9.6 L* ABG pH 7.00 L* ABG Total CO2 12.3 L ABG O2 Saturation 98.2 H ABG Base Excess -19.6 L ABG Hemoglobin 10.3 L ABG Carboxyhemoglobin 1.6 H POC ABG HHb (Measured) 1.8 ABG Methemoglobin 0.8 Leonardo Test Na VBG pH VBG pCO2 VBG HCO3 VBG Total CO2 VBG O2 Sat (Calc) VBG Base Excess VBG Potassium A-a O2 Difference 416.0 Respiratory Index 4.2 Hgb O2 Saturation 95.8 Glucose Lactate Vent Mode Prvc Mechanical Rate 18 FiO2 80.0 Tidal Volume 500 PEEP 5 Crit Value Called To Catherine barnett/rn Crit Value Called By Gunner qureshi/rt Crit Value Read Back Y Blood Gas Notified Time 505 Sodium Potassium Chloride Carbon Dioxide Anion Gap BUN Creatinine Est GFR ( Amer) Est GFR (Non-Af Amer) POC Glucose (mg/dL) 359 H 354 H Random Glucose Calcium Phosphorus Magnesium Total Bilirubin AST ALT Alkaline Phosphatase Total Protein Albumin Globulin Albumin/Globulin Ratio Venous Blood Potassium Blood Type Antibody Screen 06/10/18 06/10/18 06/10/18 07:26 07:39 07:39 WBC 31.5 H RBC 2.90 L Hgb 7.5 L D Hct 25.2 L MCV 86.7 MCH 25.8 L MCHC 29.7 L RDW 15.5 H Plt Count 103 L D MPV 7.5 Neut % (Auto) 92.6 H Lymph % (Auto) 3.3 L [place] % (Auto) 2.7 Eos % (Auto) 1.2 Baso % (Auto) 0.2 Neut # (Auto) 29.2 H Lymph # (Auto) 1.1 [place] # (Auto) 0.8 Eos # (Auto) 0.4 Baso # (Auto) 0.1 Neutrophils % (Manual) 74 Band Neutrophils % 20 H* Lymphocytes % (Manual) 4 L Reactive Lymphs % Monocytes % (Manual) 2 Metamyelocytes % Platelet Estimate Slightly decreased L Large Platelets Present Giant Platelets Present Polychromasia Hypochromasia (manual) Slight Poikilocytosis (manual Slight Anisocytosis (manual) Slight Ovalocytes Slight [place] Cells Slight Rouleaux Smear Path Review PT > 320.0 H D INR > 10.0 APTT 71 H Puncture Site pCO2 pO2 HCO3 ABG pH ABG Total CO2 ABG O2 Saturation ABG Base Excess ABG Hemoglobin ABG Carboxyhemoglobin POC ABG HHb (Measured) ABG Methemoglobin Leonardo Test VBG pH VBG pCO2 VBG HCO3 VBG Total CO2 VBG O2 Sat (Calc) VBG Base Excess VBG Potassium A-a O2 Difference Respiratory Index Hgb O2 Saturation Glucose Lactate Vent Mode Mechanical Rate FiO2 Tidal Volume PEEP Crit Value Called To Crit Value Called By Crit Value Read Back Blood Gas Notified Time Sodium Potassium Chloride Carbon Dioxide Anion Gap BUN Creatinine Est GFR ( Amer) Est GFR (Non-Af Amer) POC Glucose (mg/dL) 377 H Random Glucose Calcium Phosphorus Magnesium Total Bilirubin AST ALT Alkaline Phosphatase Total Protein Albumin Globulin Albumin/Globulin Ratio Venous Blood Potassium Blood Type Antibody Screen 06/10/18 06/10/18 06/10/18 07:39 08:02 08:47 WBC RBC Hgb Hct MCV MCH MCHC RDW Plt Count MPV Neut % (Auto) Lymph % (Auto) [place] % (Auto) Eos % (Auto) Baso % (Auto) Neut # (Auto) Lymph # (Auto) [place] # (Auto) Eos # (Auto) Baso # (Auto) Neutrophils % (Manual) Band Neutrophils % Lymphocytes % (Manual) Reactive Lymphs % Monocytes % (Manual) Metamyelocytes % Platelet Estimate Large Platelets Giant Platelets Polychromasia Hypochromasia (manual) Poikilocytosis (manual Anisocytosis (manual) Ovalocytes [place] Cells Rouleaux Smear Path Review PT INR APTT Puncture Site pCO2 pO2 HCO3 ABG pH ABG Total CO2 ABG O2 Saturation ABG Base Excess ABG Hemoglobin ABG Carboxyhemoglobin POC ABG HHb (Measured) ABG Methemoglobin Leonardo Test VBG pH VBG pCO2 VBG HCO3 VBG Total CO2 VBG O2 Sat (Calc) VBG Base Excess VBG Potassium A-a O2 Difference Respiratory Index Hgb O2 Saturation Glucose Lactate Vent Mode Mechanical Rate FiO2 Tidal Volume PEEP Crit Value Called To Crit Value Called By Crit Value Read Back Blood Gas Notified Time Sodium 132 Potassium 5.6 H Chloride 93 L Carbon Dioxide 16 L Anion Gap 29 H BUN 25 H Creatinine 1.9 H Est GFR ( Amer) 32 Est GFR (Non-Af Amer) 26 POC Glucose (mg/dL) 330 H Random Glucose 303 H Calcium 6.7 L Phosphorus Magnesium 2.5 H Total Bilirubin AST ALT Alkaline Phosphatase Total Protein Albumin Globulin Albumin/Globulin Ratio Venous Blood Potassium Blood Type B POSITIVE Antibody Screen Negative 06/10/18 06/10/18 06/10/18 09:18 10:11 10:48 WBC RBC Hgb Hct MCV MCH MCHC RDW Plt Count MPV Neut % (Auto) Lymph % (Auto) [place] % (Auto) Eos % (Auto) Baso % (Auto) Neut # (Auto) Lymph # (Auto) [place] # (Auto) Eos # (Auto) Baso # (Auto) Neutrophils % (Manual) Band Neutrophils % Lymphocytes % (Manual) Reactive Lymphs % Monocytes % (Manual) Metamyelocytes % Platelet Estimate Large Platelets Giant Platelets Polychromasia Hypochromasia (manual) Poikilocytosis (manual Anisocytosis (manual) Ovalocytes [place] Cells Rouleaux Smear Path Review PT INR APTT Puncture Site pCO2 pO2 18 L HCO3 ABG pH ABG Total CO2 ABG O2 Saturation ABG Base Excess ABG Hemoglobin ABG Carboxyhemoglobin POC ABG HHb (Measured) ABG Methemoglobin Leonardo Test VBG pH 6.98 L* VBG pCO2 61 H VBG HCO3 8.8 VBG Total CO2 16.3 L VBG O2 Sat (Calc) 40.8 VBG Base Excess -17.7 L VBG Potassium 3.3 L A-a O2 Difference Respiratory Index Hgb O2 Saturation Glucose 625 H* D Lactate 8.5 H* Vent Mode Mechanical Rate FiO2 100.0 Tidal Volume PEEP 5 Crit Value Called To Dr streeter Crit Value Called By Lior patten manager recruitment Crit Value Read Back Y Blood Gas Notified Time 1050 Sodium < 100.0 L* Potassium Chloride 46.0 L Carbon Dioxide Anion Gap BUN Creatinine Est GFR ( Amer) Est GFR (Non-Af Amer) POC Glucose (mg/dL) 321 H 298 H Random Glucose Calcium Phosphorus Magnesium Total Bilirubin AST ALT Alkaline Phosphatase Total Protein Albumin Globulin Albumin/Globulin Ratio Venous Blood Potassium 3.3 L Blood Type Antibody Screen Assessment & Plan - Assessment and Plan (Free Text) Assessment: Palliative consult Full Code prior to consult, there was no Advance directive on chart, PPS 10% I reviewed medical records, all diagnostic studies, examined patient in the bed and discussed goals of care with family Patient remains unresponsive, on full life support with critically low BP and HR. Family meeting attended by sons and daughters. Daughter Shila was a spoke person for the family. I reviewed patient's clinical presentation and elicited their understanding of condition. Shila stated being made aware by Doctor Rony that patient was critically ill without brain functions , post cardiac arrest. Shila stated that family was concerned with patient's comfort. They understand that was imminent and wanted her to natural . One of the daughter said" she has been sick for a long time." patient's michele, who is currently admitted at 6 T, was brought in via to see his . He told her last Good Bye. Family was very clear that would not want CPR to be performed if patient's heart stops , but would want current treatment to be continued. POLST reviewed. Family chose DNR/DNI. Kermit signed POLST. This was shared with ICU team. I contacted pastoral care and asked for spiritual support to patient's . Impression * Acutelly ill lady S/P cardiac arrest * Unresponsive * Bradycardia * Hypotension * Patient's wishes for the end of life care are not known * and children at bed side advocating for natural Suggestion * Continue MV support * If patient's heart stops, allow natural ; No CPR * Pastoral care for spiritual support Terminal extubation should be appropriate intervention for this patient with global brain dysfunction. If patient still alive tomorrow, I will talk to family about removal of life support. Advance care discussion, 45 min
--- NOTE | 2018-06-10 14:04 | CP.PCM.CON ---
History of Present Illness - History of Present Illness History of Present Illness: dictated Past Patient History - Infectious Disease Hx of Infectious Diseases: None - Past Medical History & Family History Past Medical History?: Yes - Past Social History Smoking Status: Unknown If Ever Smoked - CARDIAC Hx Congestive Heart Failure: Yes Hx Hypercholesterolemia: Yes Hx Hypertension: Yes - PULMONARY Hx Asthma: Yes Hx Chronic Obstructive Pulmonary Disease (COPD): Yes Hx Emphysema: Yes - NEUROLOGICAL Hx Seizures: Yes - HEENT Hx HEENT Problems: No - RENAL Hx Chronic Kidney Disease: No - ENDOCRINE/METABOLIC Hx Endocrine Disorders: No - HEMATOLOGICAL/ONCOLOGICAL Hx Blood Disorders: No - INTEGUMENTARY Hx Dermatological Problems: No - MUSCULOSKELETAL/RHEUMATOLOGICAL Hx Falls: Yes - GASTROINTESTINAL Hx Gastrointestinal Disorders: No - GENITOURINARY/GYNECOLOGICAL Hx Genitourinary Disorders: No - PSYCHIATRIC Hx Substance Use: No - SURGICAL HISTORY Hx Surgeries: No - ANESTHESIA Hx Anesthesia: No Hx Anesthesia Reactions: No Hx Malignant Hyperthermia: No Has any member of the family had a problem w/ anesthesia?: No Meds Allergies/Adverse Reactions: Allergies Allergy/AdvReac Type Severity Reaction Status Date / Time No Known Allergies Allergy Verified 06/09/18 06:31 - Medications Medications: Current Medications Albuterol/Ipratropium (Duoneb 3 Mg/0.5 Mg (3 Ml) Ud) 3 ml INH RQ6 JULIO Last Admin: 06/10/18 08:20 Dose: 3 ml Dextrose (Dextrose 50% Inj) 0 ml IV STAT PRN; Protocol PRN Reason: Hypoglycemia Protocol Dextrose (Glutose 15) 15 gm PO ONCE PRN; Protocol PRN Reason: Hypoglycemia Protocol Glucagon (Glucagen Diagnostic Kit) 1 mg IM STAT PRN; Protocol PRN Reason: Hypoglycemia Protocol Heparin Sodium (Porcine) (Heparin) 5,000 units SC Q8 JULIO Last Admin: 06/10/18 06:00 Dose: Not Given Dextrose (Dextrose 5% In Water 1000 Ml) 1,000 mls @ 0 mls/hr IV .Q0M PRN; Protocol PRN Reason: Hypoglycemia Protocol Vasopressin 40 units/ Sodium (Chloride) 40 mls @ 0.6 mls/hr IV .Q24H JULIO; Protocol Last Admin: 06/10/18 11:58 Dose: Not Given Phenylephrine HCl 30 mg/ (Sodium Chloride) 253 mls @ 10.12 mls/hr IV .Q24H PRN; Protocol PRN Reason: TITRATE PER MD ORDER Last Admin: 06/10/18 11:39 Dose: 180 mcg/min, 91.08 mls/hr Dopamine HCl/Dextrose (Dopamine 400mg/250ml D5w) 400 mg in 250 mls @ 7.202 mls/hr IV .Q24H PRN; Protocol PRN Reason: TITRATE PER MD ORDER Last Admin: 06/10/18 11:55 Dose: 20 mcg/kg/min, 72.02 mls/hr Piperacillin Sod/Tazobactam Sod (Zosyn 2.25 Gm Iv Premix) 2.25 gm in 50 mls @ 100 mls/hr IVPB Q6H JULIO; Protocol Sodium Bicarbonate 150 meq/ (Sodium Chloride) 1,150 mls @ 50 mls/hr IV .Q23H JULIO Last Admin: 06/10/18 11:36 Dose: 50 mls/hr Norepinephrine Bitartrate 8 mg (/ Dextrose) 500 mls @ 15 mls/hr IV .Q24H PRN; Protocol PRN Reason: TITRATE PER MD ORDER Last Admin: 06/10/18 12:49 Dose: 4 mcg/min, 15 mls/hr Pantoprazole Sodium (Protonix Inj) 40 mg IVP DAILY JULIO Last Admin: 06/10/18 10:00 Dose: 40 mg Results - Vital Signs Recent Vital Signs: Last Vital Signs Temp 91.4 F L 06/10/18 13:15 Pulse 81 06/10/18 13:15 Resp 28 H 06/10/18 13:15 BP 40/20 L 06/10/18 13:15 Pulse Ox 93 L 06/10/18 12:49 - Labs Result Diagrams: 06/10/18 07:39 06/10/18 07:39 Labs: Laboratory Results - last 24 hr 06/09/18 06/09/18 06/09/18 14:12 15:37 16:09 WBC RBC Hgb Hct MCV MCH MCHC RDW Plt Count MPV Neut % (Auto) Lymph % (Auto) Nelson % (Auto) Eos % (Auto) Baso % (Auto) Neut # (Auto) Lymph # (Auto) Nelson # (Auto) Eos # (Auto) Baso # (Auto) Neutrophils % (Manual) Band Neutrophils % Lymphocytes % (Manual) Reactive Lymphs % Monocytes % (Manual) Metamyelocytes % Platelet Estimate Large Platelets Giant Platelets Polychromasia Hypochromasia (manual) Poikilocytosis (manual Anisocytosis (manual) Ovalocytes [place] Cells Rouleaux Smear Path Review PT INR APTT Puncture Site pCO2 pO2 HCO3 ABG pH ABG Total CO2 ABG O2 Saturation ABG Base Excess ABG Hemoglobin ABG Carboxyhemoglobin POC ABG HHb (Measured) ABG Methemoglobin Leonardo Test VBG pH VBG pCO2 VBG HCO3 VBG Total CO2 VBG O2 Sat (Calc) VBG Base Excess VBG Potassium A-a O2 Difference Respiratory Index Hgb O2 Saturation Glucose Lactate Vent Mode Mechanical Rate FiO2 Tidal Volume PEEP Crit Value Called To Crit Value Called By Crit Value Read Back Blood Gas Notified Time Sodium Potassium Chloride Carbon Dioxide Anion Gap BUN Creatinine Est GFR ( Amer) Est GFR (Non-Af Amer) POC Glucose (mg/dL) 209 H 251 H 240 H Random Glucose Calcium Phosphorus Magnesium Total Bilirubin AST ALT Alkaline Phosphatase Total Protein Albumin Globulin Albumin/Globulin Ratio Venous Blood Potassium Blood Type Antibody Screen 06/09/18 06/09/18 06/09/18 17:18 17:49 18:17 WBC 39.4 H* D RBC 3.53 L Hgb 9.2 L Hct 30.1 L MCV 85.4 D MCH 26.0 L MCHC 30.4 L RDW 15.8 H Plt Count 141 D MPV 7.3 Neut % (Auto) 93.1 H Lymph % (Auto) 2.4 L Nelson % (Auto) 3.1 Eos % (Auto) 1.1 Baso % (Auto) 0.3 Neut # (Auto) 36.7 H Lymph # (Auto) 0.9 L Nelson # (Auto) 1.2 H Eos # (Auto) 0.4 Baso # (Auto) 0.1 Neutrophils % (Manual) 84 H Band Neutrophils % 9 H Lymphocytes % (Manual) 2 L Reactive Lymphs % 1 H Monocytes % (Manual) 3 Metamyelocytes % 1 H Platelet Estimate Normal Large Platelets Giant Platelets Polychromasia Slight Hypochromasia (manual) Poikilocytosis (manual Anisocytosis (manual) Slight Ovalocytes [place] Cells Rouleaux Slight Smear Path Review PT INR APTT Puncture Site pCO2 pO2 HCO3 ABG pH ABG Total CO2 ABG O2 Saturation ABG Base Excess ABG Hemoglobin ABG Carboxyhemoglobin POC ABG HHb (Measured) ABG Methemoglobin Leonardo Test VBG pH VBG pCO2 VBG HCO3 VBG Total CO2 VBG O2 Sat (Calc) VBG Base Excess VBG Potassium A-a O2 Difference Respiratory Index Hgb O2 Saturation Glucose Lactate Vent Mode Mechanical Rate FiO2 Tidal Volume PEEP Crit Value Called To Crit Value Called By Crit Value Read Back Blood Gas Notified Time Sodium Potassium Chloride Carbon Dioxide Anion Gap BUN Creatinine Est GFR ( Amer) Est GFR (Non-Af Amer) POC Glucose (mg/dL) 280 H 288 H Random Glucose Calcium Phosphorus Magnesium Total Bilirubin AST ALT Alkaline Phosphatase Total Protein Albumin Globulin Albumin/Globulin Ratio Venous Blood Potassium Blood Type Antibody Screen 06/09/18 06/09/18 06/09/18 18:17 18:17 19:05 WBC RBC Hgb Hct MCV MCH MCHC RDW Plt Count MPV Neut % (Auto) Lymph % (Auto) Nelson % (Auto) Eos % (Auto) Baso % (Auto) Neut # (Auto) Lymph # (Auto) Nelson # (Auto) Eos # (Auto) Baso # (Auto) Neutrophils % (Manual) Band Neutrophils % Lymphocytes % (Manual) Reactive Lymphs % Monocytes % (Manual) Metamyelocytes % Platelet Estimate Large Platelets Giant Platelets Polychromasia Hypochromasia (manual) Poikilocytosis (manual Anisocytosis (manual) Ovalocytes Leni Cells Rouleaux Smear Path Review PT 115.7 H D INR 10.5 D APTT 75 H D Puncture Site pCO2 pO2 HCO3 ABG pH ABG Total CO2 ABG O2 Saturation ABG Base Excess ABG Hemoglobin ABG Carboxyhemoglobin POC ABG HHb (Measured) ABG Methemoglobin Leonardo Test VBG pH VBG pCO2 VBG HCO3 VBG Total CO2 VBG O2 Sat (Calc) VBG Base Excess VBG Potassium A-a O2 Difference Respiratory Index Hgb O2 Saturation Glucose Lactate Vent Mode Mechanical Rate FiO2 Tidal Volume PEEP Crit Value Called To Crit Value Called By Crit Value Read Back Blood Gas Notified Time Sodium 136 Potassium 5.3 H Chloride 98 Carbon Dioxide 17 L Anion Gap 26 H BUN 22 H Creatinine 1.7 H Est GFR ( Amer) 36 Est GFR (Non-Af Amer) 30 POC Glucose (mg/dL) 274 H Random Glucose 276 H Calcium 7.2 L Phosphorus Magnesium 2.7 H Total Bilirubin AST ALT Alkaline Phosphatase Total Protein Albumin Globulin Albumin/Globulin Ratio Venous Blood Potassium Blood Type Antibody Screen 06/09/18 06/09/18 06/09/18 20:02 20:49 21:57 WBC RBC Hgb Hct MCV MCH MCHC RDW Plt Count MPV Neut % (Auto) Lymph % (Auto) Nelson % (Auto) Eos % (Auto) Baso % (Auto) Neut # (Auto) Lymph # (Auto) Nelson # (Auto) Eos # (Auto) Baso # (Auto) Neutrophils % (Manual) Band Neutrophils % Lymphocytes % (Manual) Reactive Lymphs % Monocytes % (Manual) Metamyelocytes % Platelet Estimate Large Platelets Giant Platelets Polychromasia Hypochromasia (manual) Poikilocytosis (manual Anisocytosis (manual) Ovalocytes Leni Cells Rouleaux Smear Path Review PT INR APTT Puncture Site pCO2 pO2 HCO3 ABG pH ABG Total CO2 ABG O2 Saturation ABG Base Excess ABG Hemoglobin ABG Carboxyhemoglobin POC ABG HHb (Measured) ABG Methemoglobin Leonardo Test VBG pH VBG pCO2 VBG HCO3 VBG Total CO2 VBG O2 Sat (Calc) VBG Base Excess VBG Potassium A-a O2 Difference Respiratory Index Hgb O2 Saturation Glucose Lactate Vent Mode Mechanical Rate FiO2 Tidal Volume PEEP Crit Value Called To Crit Value Called By Crit Value Read Back Blood Gas Notified Time Sodium Potassium Chloride Carbon Dioxide Anion Gap BUN Creatinine Est GFR ( Amer) Est GFR (Non-Af Amer) POC Glucose (mg/dL) 278 H 269 H 301 H Random Glucose Calcium Phosphorus Magnesium Total Bilirubin AST ALT Alkaline Phosphatase Total Protein Albumin Globulin Albumin/Globulin Ratio Venous Blood Potassium Blood Type Antibody Screen 06/09/18 06/10/18 06/10/18 22:48 00:02 00:45 WBC RBC Hgb Hct MCV MCH MCHC RDW Plt Count MPV Neut % (Auto) Lymph % (Auto) Nelson % (Auto) Eos % (Auto) Baso % (Auto) Neut # (Auto) Lymph # (Auto) Nelson # (Auto) Eos # (Auto) Baso # (Auto) Neutrophils % (Manual) Band Neutrophils % Lymphocytes % (Manual) Reactive Lymphs % Monocytes % (Manual) Metamyelocytes % Platelet Estimate Large Platelets Giant Platelets Polychromasia Hypochromasia (manual) Poikilocytosis (manual Anisocytosis (manual) Ovalocytes [place] Cells Rouleaux Smear Path Review PT INR APTT Puncture Site pCO2 pO2 HCO3 ABG pH ABG Total CO2 ABG O2 Saturation ABG Base Excess ABG Hemoglobin ABG Carboxyhemoglobin POC ABG HHb (Measured) ABG Methemoglobin Leonardo Test VBG pH VBG pCO2 VBG HCO3 VBG Total CO2 VBG O2 Sat (Calc) VBG Base Excess VBG Potassium A-a O2 Difference Respiratory Index Hgb O2 Saturation Glucose Lactate Vent Mode Mechanical Rate FiO2 Tidal Volume PEEP Crit Value Called To Crit Value Called By Crit Value Read Back Blood Gas Notified Time Sodium Potassium Chloride Carbon Dioxide Anion Gap BUN Creatinine Est GFR ( Amer) Est GFR (Non-Af Amer) POC Glucose (mg/dL) 314 H 317 H 353 H Random Glucose Calcium Phosphorus Magnesium Total Bilirubin AST ALT Alkaline Phosphatase Total Protein Albumin Globulin Albumin/Globulin Ratio Venous Blood Potassium Blood Type Antibody Screen 06/10/18 06/10/18 06/10/18 00:57 00:57 02:19 WBC 41.3 H* RBC 3.68 L Hgb 9.6 L Hct 31.8 L MCV 86.3 MCH 26.0 L MCHC 30.2 L RDW 16.3 H Plt Count 138 MPV 8.3 Neut % (Auto) 94.9 H Lymph % (Auto) 2.0 L Nelson % (Auto) 0.9 Eos % (Auto) 1.6 Baso % (Auto) 0.6 Neut # (Auto) 39.2 H Lymph # (Auto) 0.8 L Nelson # (Auto) 0.4 Eos # (Auto) 0.6 Baso # (Auto) 0.2 Neutrophils % (Manual) 85 H Band Neutrophils % 11 H* Lymphocytes % (Manual) 1 L Reactive Lymphs % Monocytes % (Manual) 1 Metamyelocytes % 2 H Platelet Estimate Normal Large Platelets Giant Platelets Polychromasia Hypochromasia (manual) Poikilocytosis (manual Slight Anisocytosis (manual) Slight Ovalocytes Leni Cells Rouleaux Smear Path Review PT 109.1 H D INR 9.9 APTT 73 H Puncture Site pCO2 pO2 HCO3 ABG pH ABG Total CO2 ABG O2 Saturation ABG Base Excess ABG Hemoglobin ABG Carboxyhemoglobin POC ABG HHb (Measured) ABG Methemoglobin Leonardo Test VBG pH VBG pCO2 VBG HCO3 VBG Total CO2 VBG O2 Sat (Calc) VBG Base Excess VBG Potassium A-a O2 Difference Respiratory Index Hgb O2 Saturation Glucose Lactate Vent Mode Mechanical Rate FiO2 Tidal Volume PEEP Crit Value Called To Crit Value Called By Crit Value Read Back Blood Gas Notified Time Sodium Potassium Chloride Carbon Dioxide Anion Gap BUN Creatinine Est GFR ( Amer) Est GFR (Non-Af Amer) POC Glucose (mg/dL) 344 H Random Glucose Calcium Phosphorus Magnesium Total Bilirubin AST ALT Alkaline Phosphatase Total Protein Albumin Globulin Albumin/Globulin Ratio Venous Blood Potassium Blood Type Antibody Screen 06/10/18 06/10/18 06/10/18 02:31 03:19 04:17 WBC RBC Hgb Hct MCV MCH MCHC RDW Plt Count MPV Neut % (Auto) Lymph % (Auto) Nelson % (Auto) Eos % (Auto) Baso % (Auto) Neut # (Auto) Lymph # (Auto) Nelson # (Auto) Eos # (Auto) Baso # (Auto) Neutrophils % (Manual) Band Neutrophils % Lymphocytes % (Manual) Reactive Lymphs % Monocytes % (Manual) Metamyelocytes % Platelet Estimate Large Platelets Giant Platelets Polychromasia Hypochromasia (manual) Poikilocytosis (manual Anisocytosis (manual) Ovalocytes Leni Cells Rouleaux Smear Path Review PT INR APTT Puncture Site pCO2 pO2 HCO3 ABG pH ABG Total CO2 ABG O2 Saturation ABG Base Excess ABG Hemoglobin ABG Carboxyhemoglobin POC ABG HHb (Measured) ABG Methemoglobin Leonardo Test VBG pH VBG pCO2 VBG HCO3 VBG Total CO2 VBG O2 Sat (Calc) VBG Base Excess VBG Potassium A-a O2 Difference Respiratory Index Hgb O2 Saturation Glucose Lactate Vent Mode Mechanical Rate FiO2 Tidal Volume PEEP Crit Value Called To Crit Value Called By Crit Value Read Back Blood Gas Notified Time Sodium 132 Potassium 5.2 Chloride 95 L Carbon Dioxide 15 L Anion Gap 27 H BUN 24 H Creatinine 1.8 H Est GFR ( Amer) 34 Est GFR (Non-Af Amer) 28 POC Glucose (mg/dL) 353 H 365 H Random Glucose 347 H Calcium 7.0 L Phosphorus 10.3 H Magnesium 2.6 H Total Bilirubin 3.6 H AST 70858 H ALT 4123 H Alkaline Phosphatase 161 H D Total Protein 4.8 L Albumin 2.3 L Globulin 2.6 Albumin/Globulin Ratio 0.9 L Venous Blood Potassium Blood Type Antibody Screen 06/10/18 06/10/18 06/10/18 04:45 05:00 06:17 WBC RBC Hgb Hct MCV MCH MCHC RDW Plt Count MPV Neut % (Auto) Lymph % (Auto) Nelson % (Auto) Eos % (Auto) Baso % (Auto) Neut # (Auto) Lymph # (Auto) Nelson # (Auto) Eos # (Auto) Baso # (Auto) Neutrophils % (Manual) Band Neutrophils % Lymphocytes % (Manual) Reactive Lymphs % Monocytes % (Manual) Metamyelocytes % Platelet Estimate Large Platelets Giant Platelets Polychromasia Hypochromasia (manual) Poikilocytosis (manual Anisocytosis (manual) Ovalocytes [place] Cells Rouleaux Smear Path Review PT INR APTT Puncture Site Rb pCO2 44 pO2 99 HCO3 9.6 L* ABG pH 7.00 L* ABG Total CO2 12.3 L ABG O2 Saturation 98.2 H ABG Base Excess -19.6 L ABG Hemoglobin 10.3 L ABG Carboxyhemoglobin 1.6 H POC ABG HHb (Measured) 1.8 ABG Methemoglobin 0.8 Leonardo Test Na VBG pH VBG pCO2 VBG HCO3 VBG Total CO2 VBG O2 Sat (Calc) VBG Base Excess VBG Potassium A-a O2 Difference 416.0 Respiratory Index 4.2 Hgb O2 Saturation 95.8 Glucose Lactate Vent Mode Prvc Mechanical Rate 18 FiO2 80.0 Tidal Volume 500 PEEP 5 Crit Value Called To Catherine barnett/rn Crit Value Called By Gunner qureshi/rt Crit Value Read Back Y Blood Gas Notified Time 505 Sodium Potassium Chloride Carbon Dioxide Anion Gap BUN Creatinine Est GFR ( Amer) Est GFR (Non-Af Amer) POC Glucose (mg/dL) 359 H 354 H Random Glucose Calcium Phosphorus Magnesium Total Bilirubin AST ALT Alkaline Phosphatase Total Protein Albumin Globulin Albumin/Globulin Ratio Venous Blood Potassium Blood Type Antibody Screen 06/10/18 06/10/18 06/10/18 07:26 07:39 07:39 WBC 31.5 H RBC 2.90 L Hgb 7.5 L D Hct 25.2 L MCV 86.7 MCH 25.8 L MCHC 29.7 L RDW 15.5 H Plt Count 103 L D MPV 7.5 Neut % (Auto) 92.6 H Lymph % (Auto) 3.3 L Nelson % (Auto) 2.7 Eos % (Auto) 1.2 Baso % (Auto) 0.2 Neut # (Auto) 29.2 H Lymph # (Auto) 1.1 Nelson # (Auto) 0.8 Eos # (Auto) 0.4 Baso # (Auto) 0.1 Neutrophils % (Manual) 74 Band Neutrophils % 20 H* Lymphocytes % (Manual) 4 L Reactive Lymphs % Monocytes % (Manual) 2 Metamyelocytes % Platelet Estimate Slightly decreased L Large Platelets Present Giant Platelets Present Polychromasia Hypochromasia (manual) Slight Poikilocytosis (manual Slight Anisocytosis (manual) Slight Ovalocytes Slight Leni Cells Slight Rouleaux Smear Path Review PT > 320.0 H D INR > 10.0 APTT 71 H Puncture Site pCO2 pO2 HCO3 ABG pH ABG Total CO2 ABG O2 Saturation ABG Base Excess ABG Hemoglobin ABG Carboxyhemoglobin POC ABG HHb (Measured) ABG Methemoglobin Leonardo Test VBG pH VBG pCO2 VBG HCO3 VBG Total CO2 VBG O2 Sat (Calc) VBG Base Excess VBG Potassium A-a O2 Difference Respiratory Index Hgb O2 Saturation Glucose Lactate Vent Mode Mechanical Rate FiO2 Tidal Volume PEEP Crit Value Called To Crit Value Called By Crit Value Read Back Blood Gas Notified Time Sodium Potassium Chloride Carbon Dioxide Anion Gap BUN Creatinine Est GFR ( Amer) Est GFR (Non-Af Amer) POC Glucose (mg/dL) 377 H Random Glucose Calcium Phosphorus Magnesium Total Bilirubin AST ALT Alkaline Phosphatase Total Protein Albumin Globulin Albumin/Globulin Ratio Venous Blood Potassium Blood Type Antibody Screen 06/10/18 06/10/18 06/10/18 07:39 08:02 08:47 WBC RBC Hgb Hct MCV MCH MCHC RDW Plt Count MPV Neut % (Auto) Lymph % (Auto) Nelson % (Auto) Eos % (Auto) Baso % (Auto) Neut # (Auto) Lymph # (Auto) Nelson # (Auto) Eos # (Auto) Baso # (Auto) Neutrophils % (Manual) Band Neutrophils % Lymphocytes % (Manual) Reactive Lymphs % Monocytes % (Manual) Metamyelocytes % Platelet Estimate Large Platelets Giant Platelets Polychromasia Hypochromasia (manual) Poikilocytosis (manual Anisocytosis (manual) Ovalocytes [place] Cells Rouleaux Smear Path Review PT INR APTT Puncture Site pCO2 pO2 HCO3 ABG pH ABG Total CO2 ABG O2 Saturation ABG Base Excess ABG Hemoglobin ABG Carboxyhemoglobin POC ABG HHb (Measured) ABG Methemoglobin Leonardo Test VBG pH VBG pCO2 VBG HCO3 VBG Total CO2 VBG O2 Sat (Calc) VBG Base Excess VBG Potassium A-a O2 Difference Respiratory Index Hgb O2 Saturation Glucose Lactate Vent Mode Mechanical Rate FiO2 Tidal Volume PEEP Crit Value Called To Crit Value Called By Crit Value Read Back Blood Gas Notified Time Sodium 132 Potassium 5.6 H Chloride 93 L Carbon Dioxide 16 L Anion Gap 29 H BUN 25 H Creatinine 1.9 H Est GFR ( Amer) 32 Est GFR (Non-Af Amer) 26 POC Glucose (mg/dL) 330 H Random Glucose 303 H Calcium 6.7 L Phosphorus Magnesium 2.5 H Total Bilirubin AST ALT Alkaline Phosphatase Total Protein Albumin Globulin Albumin/Globulin Ratio Venous Blood Potassium Blood Type B POSITIVE Antibody Screen Negative 06/10/18 06/10/18 06/10/18 09:18 10:11 10:48 WBC RBC Hgb Hct MCV MCH MCHC RDW Plt Count MPV Neut % (Auto) Lymph % (Auto) Nelson % (Auto) Eos % (Auto) Baso % (Auto) Neut # (Auto) Lymph # (Auto) Nelson # (Auto) Eos # (Auto) Baso # (Auto) Neutrophils % (Manual) Band Neutrophils % Lymphocytes % (Manual) Reactive Lymphs % Monocytes % (Manual) Metamyelocytes % Platelet Estimate Large Platelets Giant Platelets Polychromasia Hypochromasia (manual) Poikilocytosis (manual Anisocytosis (manual) Ovalocytes [place] Cells Rouleaux Smear Path Review PT INR APTT Puncture Site pCO2 pO2 18 L HCO3 ABG pH ABG Total CO2 ABG O2 Saturation ABG Base Excess ABG Hemoglobin ABG Carboxyhemoglobin POC ABG HHb (Measured) ABG Methemoglobin Leonardo Test VBG pH 6.98 L* VBG pCO2 61 H VBG HCO3 8.8 VBG Total CO2 16.3 L VBG O2 Sat (Calc) 40.8 VBG Base Excess -17.7 L VBG Potassium 3.3 L A-a O2 Difference Respiratory Index Hgb O2 Saturation Glucose 625 H* D Lactate 8.5 H* Vent Mode Mechanical Rate FiO2 100.0 Tidal Volume PEEP 5 Crit Value Called To Dr streeter Crit Value Called By Lior patten insurance collector Crit Value Read Back Y Blood Gas Notified Time 1050 Sodium < 100.0 L* Potassium Chloride 46.0 L Carbon Dioxide Anion Gap BUN Creatinine Est GFR ( Amer) Est GFR (Non-Af Amer) POC Glucose (mg/dL) 321 H 298 H Random Glucose Calcium Phosphorus Magnesium Total Bilirubin AST ALT Alkaline Phosphatase Total Protein Albumin Globulin Albumin/Globulin Ratio Venous Blood Potassium 3.3 L Blood Type Antibody Screen
[2018-06-10 14:20] VITALS: O2SAT 90
[2018-06-10 14:29] LABS: LEGIONELLA AG URINE NEGATIVE (NEGATIVE)
[2018-06-10 15:23] VITALS: BP 42/20; PULSE 82; TEMP 92.6
--- NOTE | 2018-06-10 16:12 | CP.CCUPN ---
<DanielsJose L - Last Filed: 06/10/18 16:30> CCU Subjective - Physician Review Subjective (Free Text): Critical Care Progress Note Patient examined this AM at bedside under hypothermia protocol. 2 units of PRBCs transfused this morning due to low hemoglobin. Patient remained hypotensive on pressors, 2 amps of bicarb were given and code freeze aborted. Family expressed understanding regarding patient's prognosis and requested for no further interventions and patient was made DNR/DNI. Patient at 16:18. Critical Care Time Spent (in minutes): 35 CCU Objective - Vital Signs / Intake & Output Vital Signs (Last 4 hours): Vital Signs Temp Pulse Resp BP Pulse Ox 06/10/18 15:30 82 28 H 06/10/18 15:25 82 28 H 42/20 L 06/10/18 15:15 82 28 H 06/10/18 15:00 82 28 H 06/10/18 14:45 92.6 F L 82 28 H 42/20 L 06/10/18 14:30 81 28 H 06/10/18 14:22 92.2 F L 28 H 48/15 L 06/10/18 14:19 81 28 H 48/15 L 90 L 06/10/18 14:15 81 28 H 06/10/18 14:00 82 24 06/10/18 13:45 92.0 F L 81 28 H 48/15 L 06/10/18 13:30 82 28 H 06/10/18 13:15 91.4 F L 81 28 H 40/20 L 06/10/18 13:00 92.2 F L 81 28 H 40/20 L 06/10/18 12:49 80 28 H 46/22 L 93 L 06/10/18 12:46 90.9 F L 80 28 H 46/22 L 06/10/18 12:45 80 28 H 06/10/18 12:30 90.6 F L 79 28 H 46/22 L 06/10/18 12:15 90.4 F L 78 28 H 40/15 L Intake and Output (Last 8hrs): Intake & Output 06/10/18 06/10/18 06/10/18 06:59 14:59 22:59 Intake Total 3836.2 3837.6 864.4 Output Total 55 10 Balance 3781.2 3827.6 864.4 Weight 230 lb Intake: IV 1803.6 1346.4 250 Intake, IV Amount 2032.6 2116.2 289.4 Right Medial Port 590 630 90 Femoral Y-site Right Antecubital 45 229 50 Right Antecubital Y-site 100 Right Distal Port Femoral 678.4 576 72 Right Fem TLC Y 62 Right Medial Port Femoral 19.2 19.2 2.4 Right Proximal Port 600 600 75 Femoral Blood Product 325 325 Red Blood Cells Cpd As1 0 325 Lr Unit [id number] Red Blood Cells Cpd As1 325 Lr Unit [id number] Other 50 Red Blood Cells Cpd As1 50 Lr Unit [id number] Output: Urine 55 10 Urethral (Martinez) 55 10 - Physical Exam Head: Positive for: Atraumatic, Normocephalic Pupils: Positive for: Non-Reactive Conjunctiva: Positive for: Normal Mouth: Positive for: Dry Respiratory/Chest: Positive for: Other (Apneic ) Cardiovascular: Positive for: Other (Asystole ) Upper Extremity: Positive for: Normal Inspection Lower Extremity: Positive for: Normal Inspection Skin: Positive for: Dry, Normal Color - Medications Active Medications: Active Medications Generic Name Dose Route Start Last Admin Trade Name Freq PRN Reason Stop Dose Admin Albuterol/Ipratropium 3 ml 06/09/18 14:00 06/10/18 14:17 Duoneb 3 Mg/0.5 Mg (3 Ml) Ud INH Not Given RQ6 JULIO Dextrose 0 ml 06/09/18 10:29 Dextrose 50% Inj IV STAT PRN Hypoglycemia Protocol Protocol Dextrose 15 gm 06/09/18 10:29 Glutose 15 PO ONCE PRN Hypoglycemia Protocol Protocol Glucagon 1 mg 06/09/18 10:29 Glucagen Diagnostic Kit IM STAT PRN Hypoglycemia Protocol Protocol Dextrose 1,000 mls @ 0 mls/hr 06/09/18 10:29 Dextrose 5% In Water 1000 Ml IV .Q0M PRN Hypoglycemia Protocol Protocol Per Protocol Vasopressin 40 units/ Sodium 40 mls @ 0.6 mls/hr 06/09/18 10:45 06/10/18 11:58 Chloride IV Not Given .Q24H JULIO Protocol 0.01 UNITS/MIN Phenylephrine HCl 30 mg/ 253 mls @ 10.12 mls/hr 06/09/18 13:30 06/10/18 14:19 Sodium Chloride IV 180 mcg/min .Q24H PRN 91.08 mls/hr TITRATE PER MD ORDER Administration Protocol 20 MCG/MIN Dopamine HCl/Dextrose 400 mg in 250 mls @ 7.202 mls/hr 06/09/18 13:50 06/10/18 15:25 Dopamine 400mg/250ml D5w IV 20 mcg/kg/min .Q24H PRN 72.02 mls/hr TITRATE PER MD ORDER Administration Protocol 2 MCG/KG/MIN Piperacillin Sod/Tazobactam Sod 2.25 gm in 50 mls @ 100 mls/hr 06/10/18 11:00 06/10/18 14:09 Zosyn 2.25 Gm Iv Premix IVPB 100 mls/hr Q6H JULIO Administration Protocol Sodium Bicarbonate 150 meq/ 1,150 mls @ 50 mls/hr 06/10/18 12:00 06/10/18 11:36 Sodium Chloride IV 50 mls/hr .Q23H JULIO Administration Norepinephrine Bitartrate 8 mg 500 mls @ 15 mls/hr 06/10/18 11:45 06/10/18 12:49 / Dextrose IV 4 mcg/min .Q24H PRN 15 mls/hr TITRATE PER MD ORDER Administration Protocol 4 MCG/MIN Pantoprazole Sodium 40 mg 06/10/18 10:00 06/10/18 10:00 Protonix Inj IVP 40 mg DAILY JULIO Administration - Patient Studies Lab Studies: Microbiology Studies 06/09/18 10:01 MRSA Culture (Admit) - Final Naris MRSA NOT DETECTED 06/09/18 09:15 Blood Culture - Preliminary Blood-Thru Central Line NO GROWTH AFTER 24 HOURS 06/09/18 09:15 Blood Culture - Preliminary Blood-Thru Central Line NO GROWTH AFTER 24 HOURS Lab Studies 06/10/18 06/10/18 06/10/18 Range/Units 12:25 10:48 10:11 WBC (4.8-10.8) K/uL RBC (3.80-5.20) Mil/uL Hgb (11.0-16.0) g/dL Hct (34.0-47.0) % MCV (81.0-99.0) fL MCH (27.0-31.0) pg MCHC (33.0-37.0) g/dL RDW (11.5-14.5) % Plt Count (130-400) K/uL MPV (7.2-11.7) fL Neut % (Auto) (50.0-75.0) % Lymph % (Auto) (20.0-40.0) % [place] % (Auto) (0.0-10.0) % Eos % (Auto) (0.0-4.0) % Baso % (Auto) (0.0-2.0) % Neut # (Auto) (1.8-7.0) K/uL Lymph # (Auto) (1.0-4.3) K/uL [place] # (Auto) (0.0-0.8) K/uL Eos # (Auto) (0.0-0.7) K/uL Baso # (Auto) (0.0-0.2) K/uL Neutrophils % (Manual) (50-75) % Band Neutrophils % (0-2) % Lymphocytes % (Manual) (20-40) % Reactive Lymphs % (0-0) % Monocytes % (Manual) (0-10) % Metamyelocytes % (0-0) % Platelet Estimate (NORMAL) Large Platelets Giant Platelets Polychromasia Hypochromasia (manual) Poikilocytosis (manual Anisocytosis (manual) Ovalocytes Leni Cells Rouleaux Smear Path Review PT (9.7-12.2) SECONDS INR APTT (21-34) SECONDS Puncture Site pCO2 (35-45) mm/Hg pO2 18 L (80-100) mm/Hg HCO3 (21-28) mmol/L ABG pH (7.35-7.45) ABG Total CO2 (22-28) mmol/L ABG O2 Saturation (95-98) % ABG Base Excess (-2.0-3.0) mmol/L ABG Hemoglobin (11.7-17.4) g/dL ABG Carboxyhemoglobin (0.5-1.5) % POC ABG HHb (Measured) (0.0-5.0) % ABG Methemoglobin (0.0-3.0) % Leonardo Test VBG pH 6.98 L* (7.32-7.43) VBG pCO2 61 H (40-60) mmHg VBG HCO3 8.8 mmol/L VBG Total CO2 16.3 L (22-28) mmol/L VBG O2 Sat (Calc) 40.8 (40-65) % VBG Base Excess -17.7 L (0.0-2.0) mmol/L VBG Potassium 3.3 L (3.6-5.2) mmol/L A-a O2 Difference mm/Hg Respiratory Index Hgb O2 Saturation (95.0-98.0) % Glucose 625 H* D (65-105) mg/dl Lactate 8.5 H* (0.7-2.1) mmol/L Vent Mode Mechanical Rate FiO2 100.0 % Tidal Volume PEEP 5 Crit Value Called To Dr streeter Crit Value Called By Lior patten freelance art director Crit Value Read Back Y Blood Gas Notified Time 1050 Sodium < 100.0 L* (132-148) mmol/L Potassium (3.6-5.2) mmol/L Chloride 46.0 L (98-107) mmol/L Carbon Dioxide (22-30) mmol/L Anion Gap (10-20) BUN (7-17) mg/dL Creatinine (0.7-1.2) mg/dL Est GFR ( Amer) Est GFR (Non-Af Amer) POC Glucose (mg/dL) 298 H (65-110) mg/dL Random Glucose (65-105) mg/dL Calcium (8.6-10.4) mg/dl Phosphorus (2.5-4.5) mg/dL Magnesium (1.6-2.3) mg/dL Total Bilirubin (0.2-1.3) mg/dL AST (14-36) U/L ALT (9-52) U/L Alkaline Phosphatase (38-126) U/L Total Protein (6.3-8.3) g/dL Albumin (3.5-5.0) g/dL Globulin (2.2-3.9) gm/dL Albumin/Globulin Ratio (1.0-2.1) Venous Blood Potassium 3.3 L (3.6-5.2) mmol/L Ur L.pneumophila Ag Negative (NEGATIVE) Blood Type Antibody Screen 06/10/18 06/10/18 06/10/18 Range/Units 09:18 08:47 08:02 WBC (4.8-10.8) K/uL RBC (3.80-5.20) Mil/uL Hgb (11.0-16.0) g/dL Hct (34.0-47.0) % MCV (81.0-99.0) fL MCH (27.0-31.0) pg MCHC (33.0-37.0) g/dL RDW (11.5-14.5) % Plt Count (130-400) K/uL MPV (7.2-11.7) fL Neut % (Auto) (50.0-75.0) % Lymph % (Auto) (20.0-40.0) % [place] % (Auto) (0.0-10.0) % Eos % (Auto) (0.0-4.0) % Baso % (Auto) (0.0-2.0) % Neut # (Auto) (1.8-7.0) K/uL Lymph # (Auto) (1.0-4.3) K/uL [place] # (Auto) (0.0-0.8) K/uL Eos # (Auto) (0.0-0.7) K/uL Baso # (Auto) (0.0-0.2) K/uL Neutrophils % (Manual) (50-75) % Band Neutrophils % (0-2) % Lymphocytes % (Manual) (20-40) % Reactive Lymphs % (0-0) % Monocytes % (Manual) (0-10) % Metamyelocytes % (0-0) % Platelet Estimate (NORMAL) Large Platelets Giant Platelets Polychromasia Hypochromasia (manual) Poikilocytosis (manual Anisocytosis (manual) Ovalocytes Leni Cells Rouleaux Smear Path Review PT (9.7-12.2) SECONDS INR APTT (21-34) SECONDS Puncture Site pCO2 (35-45) mm/Hg pO2 (80-100) mm/Hg HCO3 (21-28) mmol/L ABG pH (7.35-7.45) ABG Total CO2 (22-28) mmol/L ABG O2 Saturation (95-98) % ABG Base Excess (-2.0-3.0) mmol/L ABG Hemoglobin (11.7-17.4) g/dL ABG Carboxyhemoglobin (0.5-1.5) % POC ABG HHb (Measured) (0.0-5.0) % ABG Methemoglobin (0.0-3.0) % Leonardo Test VBG pH (7.32-7.43) VBG pCO2 (40-60) mmHg VBG HCO3 mmol/L VBG Total CO2 (22-28) mmol/L VBG O2 Sat (Calc) (40-65) % VBG Base Excess (0.0-2.0) mmol/L VBG Potassium (3.6-5.2) mmol/L A-a O2 Difference mm/Hg Respiratory Index Hgb O2 Saturation (95.0-98.0) % Glucose (65-105) mg/dl Lactate (0.7-2.1) mmol/L Vent Mode Mechanical Rate FiO2 % Tidal Volume PEEP Crit Value Called To Crit Value Called By Crit Value Read Back Blood Gas Notified Time Sodium (132-148) mmol/L Potassium (3.6-5.2) mmol/L Chloride (98-107) mmol/L Carbon Dioxide (22-30) mmol/L Anion Gap (10-20) BUN (7-17) mg/dL Creatinine (0.7-1.2) mg/dL Est GFR ( Amer) Est GFR (Non-Af Amer) POC Glucose (mg/dL) 321 H 330 H (65-110) mg/dL Random Glucose (65-105) mg/dL Calcium (8.6-10.4) mg/dl Phosphorus (2.5-4.5) mg/dL Magnesium (1.6-2.3) mg/dL Total Bilirubin (0.2-1.3) mg/dL AST (14-36) U/L ALT (9-52) U/L Alkaline Phosphatase (38-126) U/L Total Protein (6.3-8.3) g/dL Albumin (3.5-5.0) g/dL Globulin (2.2-3.9) gm/dL Albumin/Globulin Ratio (1.0-2.1) Venous Blood Potassium (3.6-5.2) mmol/L Ur L.pneumophila Ag (NEGATIVE) Blood Type B POSITIVE Antibody Screen Negative 06/10/18 06/10/18 06/10/18 Range/Units 07:39 07:39 07:39 WBC 31.5 H (4.8-10.8) K/uL RBC 2.90 L (3.80-5.20) Mil/uL Hgb 7.5 L D (11.0-16.0) g/dL Hct 25.2 L (34.0-47.0) % MCV 86.7 (81.0-99.0) fL MCH 25.8 L (27.0-31.0) pg MCHC 29.7 L (33.0-37.0) g/dL RDW 15.5 H (11.5-14.5) % Plt Count 103 L D (130-400) K/uL MPV 7.5 (7.2-11.7) fL Neut % (Auto) 92.6 H (50.0-75.0) % Lymph % (Auto) 3.3 L (20.0-40.0) % [place] % (Auto) 2.7 (0.0-10.0) % Eos % (Auto) 1.2 (0.0-4.0) % Baso % (Auto) 0.2 (0.0-2.0) % Neut # (Auto) 29.2 H (1.8-7.0) K/uL Lymph # (Auto) 1.1 (1.0-4.3) K/uL [place] # (Auto) 0.8 (0.0-0.8) K/uL Eos # (Auto) 0.4 (0.0-0.7) K/uL Baso # (Auto) 0.1 (0.0-0.2) K/uL Neutrophils % (Manual) 74 (50-75) % Band Neutrophils % 20 H* (0-2) % Lymphocytes % (Manual) 4 L (20-40) % Reactive Lymphs % (0-0) % Monocytes % (Manual) 2 (0-10) % Metamyelocytes % (0-0) % Platelet Estimate Slightly decreased L (NORMAL) Large Platelets Present Giant Platelets Present Polychromasia Hypochromasia (manual) Slight Poikilocytosis (manual Slight Anisocytosis (manual) Slight Ovalocytes Slight [place] Cells Slight Rouleaux Smear Path Review PT > 320.0 H D (9.7-12.2) SECONDS INR > 10.0 APTT 71 H (21-34) SECONDS Puncture Site pCO2 (35-45) mm/Hg pO2 (80-100) mm/Hg HCO3 (21-28) mmol/L ABG pH (7.35-7.45) ABG Total CO2 (22-28) mmol/L ABG O2 Saturation (95-98) % ABG Base Excess (-2.0-3.0) mmol/L ABG Hemoglobin (11.7-17.4) g/dL ABG Carboxyhemoglobin (0.5-1.5) % POC ABG HHb (Measured) (0.0-5.0) % ABG Methemoglobin (0.0-3.0) % Leonardo Test VBG pH (7.32-7.43) VBG pCO2 (40-60) mmHg VBG HCO3 mmol/L VBG Total CO2 (22-28) mmol/L VBG O2 Sat (Calc) (40-65) % VBG Base Excess (0.0-2.0) mmol/L VBG Potassium (3.6-5.2) mmol/L A-a O2 Difference mm/Hg Respiratory Index Hgb O2 Saturation (95.0-98.0) % Glucose (65-105) mg/dl Lactate (0.7-2.1) mmol/L Vent Mode Mechanical Rate FiO2 % Tidal Volume PEEP Crit Value Called To Crit Value Called By Crit Value Read Back Blood Gas Notified Time Sodium 132 (132-148) mmol/L Potassium 5.6 H (3.6-5.2) mmol/L Chloride 93 L (98-107) mmol/L Carbon Dioxide 16 L (22-30) mmol/L Anion Gap 29 H (10-20) BUN 25 H (7-17) mg/dL Creatinine 1.9 H (0.7-1.2) mg/dL Est GFR ( Amer) 32 Est GFR (Non-Af Amer) 26 POC Glucose (mg/dL) (65-110) mg/dL Random Glucose 303 H (65-105) mg/dL Calcium 6.7 L (8.6-10.4) mg/dl Phosphorus (2.5-4.5) mg/dL Magnesium 2.5 H (1.6-2.3) mg/dL Total Bilirubin (0.2-1.3) mg/dL AST (14-36) U/L ALT (9-52) U/L Alkaline Phosphatase (38-126) U/L Total Protein (6.3-8.3) g/dL Albumin (3.5-5.0) g/dL Globulin (2.2-3.9) gm/dL Albumin/Globulin Ratio (1.0-2.1) Venous Blood Potassium (3.6-5.2) mmol/L Ur L.pneumophila Ag (NEGATIVE) Blood Type Antibody Screen 06/10/18 06/10/18 06/10/18 Range/Units 07:26 06:17 05:00 WBC (4.8-10.8) K/uL RBC (3.80-5.20) Mil/uL Hgb (11.0-16.0) g/dL Hct (34.0-47.0) % MCV (81.0-99.0) fL MCH (27.0-31.0) pg MCHC (33.0-37.0) g/dL RDW (11.5-14.5) % Plt Count (130-400) K/uL MPV (7.2-11.7) fL Neut % (Auto) (50.0-75.0) % Lymph % (Auto) (20.0-40.0) % [place] % (Auto) (0.0-10.0) % Eos % (Auto) (0.0-4.0) % Baso % (Auto) (0.0-2.0) % Neut # (Auto) (1.8-7.0) K/uL Lymph # (Auto) (1.0-4.3) K/uL [place] # (Auto) (0.0-0.8) K/uL Eos # (Auto) (0.0-0.7) K/uL Baso # (Auto) (0.0-0.2) K/uL Neutrophils % (Manual) (50-75) % Band Neutrophils % (0-2) % Lymphocytes % (Manual) (20-40) % Reactive Lymphs % (0-0) % Monocytes % (Manual) (0-10) % Metamyelocytes % (0-0) % Platelet Estimate (NORMAL) Large Platelets Giant Platelets Polychromasia Hypochromasia (manual) Poikilocytosis (manual Anisocytosis (manual) Ovalocytes [place] Cells Rouleaux Smear Path Review PT (9.7-12.2) SECONDS INR APTT (21-34) SECONDS Puncture Site pCO2 (35-45) mm/Hg pO2 (80-100) mm/Hg HCO3 (21-28) mmol/L ABG pH (7.35-7.45) ABG Total CO2 (22-28) mmol/L ABG O2 Saturation (95-98) % ABG Base Excess (-2.0-3.0) mmol/L ABG Hemoglobin (11.7-17.4) g/dL ABG Carboxyhemoglobin (0.5-1.5) % POC ABG HHb (Measured) (0.0-5.0) % ABG Methemoglobin (0.0-3.0) % Leonardo Test VBG pH (7.32-7.43) VBG pCO2 (40-60) mmHg VBG HCO3 mmol/L VBG Total CO2 (22-28) mmol/L VBG O2 Sat (Calc) (40-65) % VBG Base Excess (0.0-2.0) mmol/L VBG Potassium (3.6-5.2) mmol/L A-a O2 Difference mm/Hg Respiratory Index Hgb O2 Saturation (95.0-98.0) % Glucose (65-105) mg/dl Lactate (0.7-2.1) mmol/L Vent Mode Mechanical Rate FiO2 % Tidal Volume PEEP Crit Value Called To Crit Value Called By Crit Value Read Back Blood Gas Notified Time Sodium (132-148) mmol/L Potassium (3.6-5.2) mmol/L Chloride (98-107) mmol/L Carbon Dioxide (22-30) mmol/L Anion Gap (10-20) BUN (7-17) mg/dL Creatinine (0.7-1.2) mg/dL Est GFR ( Amer) Est GFR (Non-Af Amer) POC Glucose (mg/dL) 377 H 354 H 359 H (65-110) mg/dL Random Glucose (65-105) mg/dL Calcium (8.6-10.4) mg/dl Phosphorus (2.5-4.5) mg/dL Magnesium (1.6-2.3) mg/dL Total Bilirubin (0.2-1.3) mg/dL AST (14-36) U/L ALT (9-52) U/L Alkaline Phosphatase (38-126) U/L Total Protein (6.3-8.3) g/dL Albumin (3.5-5.0) g/dL Globulin (2.2-3.9) gm/dL Albumin/Globulin Ratio (1.0-2.1) Venous Blood Potassium (3.6-5.2) mmol/L Ur L.pneumophila Ag (NEGATIVE) Blood Type Antibody Screen 06/10/18 06/10/18 06/10/18 Range/Units 04:45 04:17 03:19 WBC (4.8-10.8) K/uL RBC (3.80-5.20) Mil/uL Hgb (11.0-16.0) g/dL Hct (34.0-47.0) % MCV (81.0-99.0) fL MCH (27.0-31.0) pg MCHC (33.0-37.0) g/dL RDW (11.5-14.5) % Plt Count (130-400) K/uL MPV (7.2-11.7) fL Neut % (Auto) (50.0-75.0) % Lymph % (Auto) (20.0-40.0) % [place] % (Auto) (0.0-10.0) % Eos % (Auto) (0.0-4.0) % Baso % (Auto) (0.0-2.0) % Neut # (Auto) (1.8-7.0) K/uL Lymph # (Auto) (1.0-4.3) K/uL [place] # (Auto) (0.0-0.8) K/uL Eos # (Auto) (0.0-0.7) K/uL Baso # (Auto) (0.0-0.2) K/uL Neutrophils % (Manual) (50-75) % Band Neutrophils % (0-2) % Lymphocytes % (Manual) (20-40) % Reactive Lymphs % (0-0) % Monocytes % (Manual) (0-10) % Metamyelocytes % (0-0) % Platelet Estimate (NORMAL) Large Platelets Giant Platelets Polychromasia Hypochromasia (manual) Poikilocytosis (manual Anisocytosis (manual) Ovalocytes [place] Cells Rouleaux Smear Path Review PT (9.7-12.2) SECONDS INR APTT (21-34) SECONDS Puncture Site Rb pCO2 44 (35-45) mm/Hg pO2 99 (80-100) mm/Hg HCO3 9.6 L* (21-28) mmol/L ABG pH 7.00 L* (7.35-7.45) ABG Total CO2 12.3 L (22-28) mmol/L ABG O2 Saturation 98.2 H (95-98) % ABG Base Excess -19.6 L (-2.0-3.0) mmol/L ABG Hemoglobin 10.3 L (11.7-17.4) g/dL ABG Carboxyhemoglobin 1.6 H (0.5-1.5) % POC ABG HHb (Measured) 1.8 (0.0-5.0) % ABG Methemoglobin 0.8 (0.0-3.0) % Leonardo Test Na VBG pH (7.32-7.43) VBG pCO2 (40-60) mmHg VBG HCO3 mmol/L VBG Total CO2 (22-28) mmol/L VBG O2 Sat (Calc) (40-65) % VBG Base Excess (0.0-2.0) mmol/L VBG Potassium (3.6-5.2) mmol/L A-a O2 Difference 416.0 mm/Hg Respiratory Index 4.2 Hgb O2 Saturation 95.8 (95.0-98.0) % Glucose (65-105) mg/dl Lactate (0.7-2.1) mmol/L Vent Mode Prvc Mechanical Rate 18 FiO2 80.0 % Tidal Volume 500 PEEP 5 Crit Value Called To Catherine barnett/rn Crit Value Called By Gunner qureshi/rt Crit Value Read Back Y Blood Gas Notified Time 505 Sodium (132-148) mmol/L Potassium (3.6-5.2) mmol/L Chloride (98-107) mmol/L Carbon Dioxide (22-30) mmol/L Anion Gap (10-20) BUN (7-17) mg/dL Creatinine (0.7-1.2) mg/dL Est GFR ( Amer) Est GFR (Non-Af Amer) POC Glucose (mg/dL) 365 H 353 H (65-110) mg/dL Random Glucose (65-105) mg/dL Calcium (8.6-10.4) mg/dl Phosphorus (2.5-4.5) mg/dL Magnesium (1.6-2.3) mg/dL Total Bilirubin (0.2-1.3) mg/dL AST (14-36) U/L ALT (9-52) U/L Alkaline Phosphatase (38-126) U/L Total Protein (6.3-8.3) g/dL Albumin (3.5-5.0) g/dL Globulin (2.2-3.9) gm/dL Albumin/Globulin Ratio (1.0-2.1) Venous Blood Potassium (3.6-5.2) mmol/L Ur L.pneumophila Ag (NEGATIVE) Blood Type Antibody Screen 06/10/18 06/10/18 06/10/18 Range/Units 02:31 02:19 00:57 WBC (4.8-10.8) K/uL RBC (3.80-5.20) Mil/uL Hgb (11.0-16.0) g/dL Hct (34.0-47.0) % MCV (81.0-99.0) fL MCH (27.0-31.0) pg MCHC (33.0-37.0) g/dL RDW (11.5-14.5) % Plt Count (130-400) K/uL MPV (7.2-11.7) fL Neut % (Auto) (50.0-75.0) % Lymph % (Auto) (20.0-40.0) % [place] % (Auto) (0.0-10.0) % Eos % (Auto) (0.0-4.0) % Baso % (Auto) (0.0-2.0) % Neut # (Auto) (1.8-7.0) K/uL Lymph # (Auto) (1.0-4.3) K/uL [place] # (Auto) (0.0-0.8) K/uL Eos # (Auto) (0.0-0.7) K/uL Baso # (Auto) (0.0-0.2) K/uL Neutrophils % (Manual) (50-75) % Band Neutrophils % (0-2) % Lymphocytes % (Manual) (20-40) % Reactive Lymphs % (0-0) % Monocytes % (Manual) (0-10) % Metamyelocytes % (0-0) % Platelet Estimate (NORMAL) Large Platelets Giant Platelets Polychromasia Hypochromasia (manual) Poikilocytosis (manual Anisocytosis (manual) Ovalocytes [place] Cells Rouleaux Smear Path Review PT 109.1 H D (9.7-12.2) SECONDS INR 9.9 APTT 73 H (21-34) SECONDS Puncture Site pCO2 (35-45) mm/Hg pO2 (80-100) mm/Hg HCO3 (21-28) mmol/L ABG pH (7.35-7.45) ABG Total CO2 (22-28) mmol/L ABG O2 Saturation (95-98) % ABG Base Excess (-2.0-3.0) mmol/L ABG Hemoglobin (11.7-17.4) g/dL ABG Carboxyhemoglobin (0.5-1.5) % POC ABG HHb (Measured) (0.0-5.0) % ABG Methemoglobin (0.0-3.0) % Leonardo Test VBG pH (7.32-7.43) VBG pCO2 (40-60) mmHg VBG HCO3 mmol/L VBG Total CO2 (22-28) mmol/L VBG O2 Sat (Calc) (40-65) % VBG Base Excess (0.0-2.0) mmol/L VBG Potassium (3.6-5.2) mmol/L A-a O2 Difference mm/Hg Respiratory Index Hgb O2 Saturation (95.0-98.0) % Glucose (65-105) mg/dl Lactate (0.7-2.1) mmol/L Vent Mode Mechanical Rate FiO2 % Tidal Volume PEEP Crit Value Called To Crit Value Called By Crit Value Read Back Blood Gas Notified Time Sodium 132 (132-148) mmol/L Potassium 5.2 (3.6-5.2) mmol/L Chloride 95 L (98-107) mmol/L Carbon Dioxide 15 L (22-30) mmol/L Anion Gap 27 H (10-20) BUN 24 H (7-17) mg/dL Creatinine 1.8 H (0.7-1.2) mg/dL Est GFR ( Amer) 34 Est GFR (Non-Af Amer) 28 POC Glucose (mg/dL) 344 H (65-110) mg/dL Random Glucose 347 H (65-105) mg/dL Calcium 7.0 L (8.6-10.4) mg/dl Phosphorus 10.3 H (2.5-4.5) mg/dL Magnesium 2.6 H (1.6-2.3) mg/dL Total Bilirubin 3.6 H (0.2-1.3) mg/dL AST 43617 H (14-36) U/L ALT 4123 H (9-52) U/L Alkaline Phosphatase 161 H D (38-126) U/L Total Protein 4.8 L (6.3-8.3) g/dL Albumin 2.3 L (3.5-5.0) g/dL Globulin 2.6 (2.2-3.9) gm/dL Albumin/Globulin Ratio 0.9 L (1.0-2.1) Venous Blood Potassium (3.6-5.2) mmol/L Ur L.pneumophila Ag (NEGATIVE) Blood Type Antibody Screen 06/10/18 06/10/18 06/10/18 Range/Units 00:57 00:45 00:02 WBC 41.3 H* (4.8-10.8) K/uL RBC 3.68 L (3.80-5.20) Mil/uL Hgb 9.6 L (11.0-16.0) g/dL Hct 31.8 L (34.0-47.0) % MCV 86.3 (81.0-99.0) fL MCH 26.0 L (27.0-31.0) pg MCHC 30.2 L (33.0-37.0) g/dL RDW 16.3 H (11.5-14.5) % Plt Count 138 (130-400) K/uL MPV 8.3 (7.2-11.7) fL Neut % (Auto) 94.9 H (50.0-75.0) % Lymph % (Auto) 2.0 L (20.0-40.0) % [place] % (Auto) 0.9 (0.0-10.0) % Eos % (Auto) 1.6 (0.0-4.0) % Baso % (Auto) 0.6 (0.0-2.0) % Neut # (Auto) 39.2 H (1.8-7.0) K/uL Lymph # (Auto) 0.8 L (1.0-4.3) K/uL [place] # (Auto) 0.4 (0.0-0.8) K/uL Eos # (Auto) 0.6 (0.0-0.7) K/uL Baso # (Auto) 0.2 (0.0-0.2) K/uL Neutrophils % (Manual) 85 H (50-75) % Band Neutrophils % 11 H* (0-2) % Lymphocytes % (Manual) 1 L (20-40) % Reactive Lymphs % (0-0) % Monocytes % (Manual) 1 (0-10) % Metamyelocytes % 2 H (0-0) % Platelet Estimate Normal (NORMAL) Large Platelets Giant Platelets Polychromasia Hypochromasia (manual) Poikilocytosis (manual Slight Anisocytosis (manual) Slight Ovalocytes [place] Cells Rouleaux Smear Path Review PT (9.7-12.2) SECONDS INR APTT (21-34) SECONDS Puncture Site pCO2 (35-45) mm/Hg pO2 (80-100) mm/Hg HCO3 (21-28) mmol/L ABG pH (7.35-7.45) ABG Total CO2 (22-28) mmol/L ABG O2 Saturation (95-98) % ABG Base Excess (-2.0-3.0) mmol/L ABG Hemoglobin (11.7-17.4) g/dL ABG Carboxyhemoglobin (0.5-1.5) % POC ABG HHb (Measured) (0.0-5.0) % ABG Methemoglobin (0.0-3.0) % Leonardo Test VBG pH (7.32-7.43) VBG pCO2 (40-60) mmHg VBG HCO3 mmol/L VBG Total CO2 (22-28) mmol/L VBG O2 Sat (Calc) (40-65) % VBG Base Excess (0.0-2.0) mmol/L VBG Potassium (3.6-5.2) mmol/L A-a O2 Difference mm/Hg Respiratory Index Hgb O2 Saturation (95.0-98.0) % Glucose (65-105) mg/dl Lactate (0.7-2.1) mmol/L Vent Mode Mechanical Rate FiO2 % Tidal Volume PEEP Crit Value Called To Crit Value Called By Crit Value Read Back Blood Gas Notified Time Sodium (132-148) mmol/L Potassium (3.6-5.2) mmol/L Chloride (98-107) mmol/L Carbon Dioxide (22-30) mmol/L Anion Gap (10-20) BUN (7-17) mg/dL Creatinine (0.7-1.2) mg/dL Est GFR ( Amer) Est GFR (Non-Af Amer) POC Glucose (mg/dL) 353 H 317 H (65-110) mg/dL Random Glucose (65-105) mg/dL Calcium (8.6-10.4) mg/dl Phosphorus (2.5-4.5) mg/dL Magnesium (1.6-2.3) mg/dL Total Bilirubin (0.2-1.3) mg/dL AST (14-36) U/L ALT (9-52) U/L Alkaline Phosphatase (38-126) U/L Total Protein (6.3-8.3) g/dL Albumin (3.5-5.0) g/dL Globulin (2.2-3.9) gm/dL Albumin/Globulin Ratio (1.0-2.1) Venous Blood Potassium (3.6-5.2) mmol/L Ur L.pneumophila Ag (NEGATIVE) Blood Type Antibody Screen 06/09/18 06/09/18 06/09/18 Range/Units 22:48 21:57 20:49 WBC (4.8-10.8) K/uL RBC (3.80-5.20) Mil/uL Hgb (11.0-16.0) g/dL Hct (34.0-47.0) % MCV (81.0-99.0) fL MCH (27.0-31.0) pg MCHC (33.0-37.0) g/dL RDW (11.5-14.5) % Plt Count (130-400) K/uL MPV (7.2-11.7) fL Neut % (Auto) (50.0-75.0) % Lymph % (Auto) (20.0-40.0) % [place] % (Auto) (0.0-10.0) % Eos % (Auto) (0.0-4.0) % Baso % (Auto) (0.0-2.0) % Neut # (Auto) (1.8-7.0) K/uL Lymph # (Auto) (1.0-4.3) K/uL [place] # (Auto) (0.0-0.8) K/uL Eos # (Auto) (0.0-0.7) K/uL Baso # (Auto) (0.0-0.2) K/uL Neutrophils % (Manual) (50-75) % Band Neutrophils % (0-2) % Lymphocytes % (Manual) (20-40) % Reactive Lymphs % (0-0) % Monocytes % (Manual) (0-10) % Metamyelocytes % (0-0) % Platelet Estimate (NORMAL) Large Platelets Giant Platelets Polychromasia Hypochromasia (manual) Poikilocytosis (manual Anisocytosis (manual) Ovalocytes [place] Cells Rouleaux Smear Path Review PT (9.7-12.2) SECONDS INR APTT (21-34) SECONDS Puncture Site pCO2 (35-45) mm/Hg pO2 (80-100) mm/Hg HCO3 (21-28) mmol/L ABG pH (7.35-7.45) ABG Total CO2 (22-28) mmol/L ABG O2 Saturation (95-98) % ABG Base Excess (-2.0-3.0) mmol/L ABG Hemoglobin (11.7-17.4) g/dL ABG Carboxyhemoglobin (0.5-1.5) % POC ABG HHb (Measured) (0.0-5.0) % ABG Methemoglobin (0.0-3.0) % Leonardo Test VBG pH (7.32-7.43) VBG pCO2 (40-60) mmHg VBG HCO3 mmol/L VBG Total CO2 (22-28) mmol/L VBG O2 Sat (Calc) (40-65) % VBG Base Excess (0.0-2.0) mmol/L VBG Potassium (3.6-5.2) mmol/L A-a O2 Difference mm/Hg Respiratory Index Hgb O2 Saturation (95.0-98.0) % Glucose (65-105) mg/dl Lactate (0.7-2.1) mmol/L Vent Mode Mechanical Rate FiO2 % Tidal Volume PEEP Crit Value Called To Crit Value Called By Crit Value Read Back Blood Gas Notified Time Sodium (132-148) mmol/L Potassium (3.6-5.2) mmol/L Chloride (98-107) mmol/L Carbon Dioxide (22-30) mmol/L Anion Gap (10-20) BUN (7-17) mg/dL Creatinine (0.7-1.2) mg/dL Est GFR ( Amer) Est GFR (Non-Af Amer) POC Glucose (mg/dL) 314 H 301 H 269 H (65-110) mg/dL Random Glucose (65-105) mg/dL Calcium (8.6-10.4) mg/dl Phosphorus (2.5-4.5) mg/dL Magnesium (1.6-2.3) mg/dL Total Bilirubin (0.2-1.3) mg/dL AST (14-36) U/L ALT (9-52) U/L Alkaline Phosphatase (38-126) U/L Total Protein (6.3-8.3) g/dL Albumin (3.5-5.0) g/dL Globulin (2.2-3.9) gm/dL Albumin/Globulin Ratio (1.0-2.1) Venous Blood Potassium (3.6-5.2) mmol/L Ur L.pneumophila Ag (NEGATIVE) Blood Type Antibody Screen 06/09/18 06/09/18 06/09/18 Range/Units 20:02 19:05 18:17 WBC (4.8-10.8) K/uL RBC (3.80-5.20) Mil/uL Hgb (11.0-16.0) g/dL Hct (34.0-47.0) % MCV (81.0-99.0) fL MCH (27.0-31.0) pg MCHC (33.0-37.0) g/dL RDW (11.5-14.5) % Plt Count (130-400) K/uL MPV (7.2-11.7) fL Neut % (Auto) (50.0-75.0) % Lymph % (Auto) (20.0-40.0) % [place] % (Auto) (0.0-10.0) % Eos % (Auto) (0.0-4.0) % Baso % (Auto) (0.0-2.0) % Neut # (Auto) (1.8-7.0) K/uL Lymph # (Auto) (1.0-4.3) K/uL [place] # (Auto) (0.0-0.8) K/uL Eos # (Auto) (0.0-0.7) K/uL Baso # (Auto) (0.0-0.2) K/uL Neutrophils % (Manual) (50-75) % Band Neutrophils % (0-2) % Lymphocytes % (Manual) (20-40) % Reactive Lymphs % (0-0) % Monocytes % (Manual) (0-10) % Metamyelocytes % (0-0) % Platelet Estimate (NORMAL) Large Platelets Giant Platelets Polychromasia Hypochromasia (manual) Poikilocytosis (manual Anisocytosis (manual) Ovalocytes Leni Cells Rouleaux Smear Path Review PT (9.7-12.2) SECONDS INR APTT (21-34) SECONDS Puncture Site pCO2 (35-45) mm/Hg pO2 (80-100) mm/Hg HCO3 (21-28) mmol/L ABG pH (7.35-7.45) ABG Total CO2 (22-28) mmol/L ABG O2 Saturation (95-98) % ABG Base Excess (-2.0-3.0) mmol/L ABG Hemoglobin (11.7-17.4) g/dL ABG Carboxyhemoglobin (0.5-1.5) % POC ABG HHb (Measured) (0.0-5.0) % ABG Methemoglobin (0.0-3.0) % Leonardo Test VBG pH (7.32-7.43) VBG pCO2 (40-60) mmHg VBG HCO3 mmol/L VBG Total CO2 (22-28) mmol/L VBG O2 Sat (Calc) (40-65) % VBG Base Excess (0.0-2.0) mmol/L VBG Potassium (3.6-5.2) mmol/L A-a O2 Difference mm/Hg Respiratory Index Hgb O2 Saturation (95.0-98.0) % Glucose (65-105) mg/dl Lactate (0.7-2.1) mmol/L Vent Mode Mechanical Rate FiO2 % Tidal Volume PEEP Crit Value Called To Crit Value Called By Crit Value Read Back Blood Gas Notified Time Sodium 136 (132-148) mmol/L Potassium 5.3 H (3.6-5.2) mmol/L Chloride 98 (98-107) mmol/L Carbon Dioxide 17 L (22-30) mmol/L Anion Gap 26 H (10-20) BUN 22 H (7-17) mg/dL Creatinine 1.7 H (0.7-1.2) mg/dL Est GFR ( Amer) 36 Est GFR (Non-Af Amer) 30 POC Glucose (mg/dL) 278 H 274 H (65-110) mg/dL Random Glucose 276 H (65-105) mg/dL Calcium 7.2 L (8.6-10.4) mg/dl Phosphorus (2.5-4.5) mg/dL Magnesium 2.7 H (1.6-2.3) mg/dL Total Bilirubin (0.2-1.3) mg/dL AST (14-36) U/L ALT (9-52) U/L Alkaline Phosphatase (38-126) U/L Total Protein (6.3-8.3) g/dL Albumin (3.5-5.0) g/dL Globulin (2.2-3.9) gm/dL Albumin/Globulin Ratio (1.0-2.1) Venous Blood Potassium (3.6-5.2) mmol/L Ur L.pneumophila Ag (NEGATIVE) Blood Type Antibody Screen 06/09/18 06/09/18 06/09/18 Range/Units 18:17 18:17 17:49 WBC 39.4 H* D (4.8-10.8) K/uL RBC 3.53 L (3.80-5.20) Mil/uL Hgb 9.2 L (11.0-16.0) g/dL Hct 30.1 L (34.0-47.0) % MCV 85.4 D (81.0-99.0) fL MCH 26.0 L (27.0-31.0) pg MCHC 30.4 L (33.0-37.0) g/dL RDW 15.8 H (11.5-14.5) % Plt Count 141 D (130-400) K/uL MPV 7.3 (7.2-11.7) fL Neut % (Auto) 93.1 H (50.0-75.0) % Lymph % (Auto) 2.4 L (20.0-40.0) % [place] % (Auto) 3.1 (0.0-10.0) % Eos % (Auto) 1.1 (0.0-4.0) % Baso % (Auto) 0.3 (0.0-2.0) % Neut # (Auto) 36.7 H (1.8-7.0) K/uL Lymph # (Auto) 0.9 L (1.0-4.3) K/uL [place] # (Auto) 1.2 H (0.0-0.8) K/uL Eos # (Auto) 0.4 (0.0-0.7) K/uL Baso # (Auto) 0.1 (0.0-0.2) K/uL Neutrophils % (Manual) 84 H (50-75) % Band Neutrophils % 9 H (0-2) % Lymphocytes % (Manual) 2 L (20-40) % Reactive Lymphs % 1 H (0-0) % Monocytes % (Manual) 3 (0-10) % Metamyelocytes % 1 H (0-0) % Platelet Estimate Normal (NORMAL) Large Platelets Giant Platelets Polychromasia Slight Hypochromasia (manual) Poikilocytosis (manual Anisocytosis (manual) Slight Ovalocytes Leni Cells Rouleaux Slight Smear Path Review PT 115.7 H D (9.7-12.2) SECONDS INR 10.5 D APTT 75 H D (21-34) SECONDS Puncture Site pCO2 (35-45) mm/Hg pO2 (80-100) mm/Hg HCO3 (21-28) mmol/L ABG pH (7.35-7.45) ABG Total CO2 (22-28) mmol/L ABG O2 Saturation (95-98) % ABG Base Excess (-2.0-3.0) mmol/L ABG Hemoglobin (11.7-17.4) g/dL ABG Carboxyhemoglobin (0.5-1.5) % POC ABG HHb (Measured) (0.0-5.0) % ABG Methemoglobin (0.0-3.0) % Leonardo Test VBG pH (7.32-7.43) VBG pCO2 (40-60) mmHg VBG HCO3 mmol/L VBG Total CO2 (22-28) mmol/L VBG O2 Sat (Calc) (40-65) % VBG Base Excess (0.0-2.0) mmol/L VBG Potassium (3.6-5.2) mmol/L A-a O2 Difference mm/Hg Respiratory Index Hgb O2 Saturation (95.0-98.0) % Glucose (65-105) mg/dl Lactate (0.7-2.1) mmol/L Vent Mode Mechanical Rate FiO2 % Tidal Volume PEEP Crit Value Called To Crit Value Called By Crit Value Read Back Blood Gas Notified Time Sodium (132-148) mmol/L Potassium (3.6-5.2) mmol/L Chloride (98-107) mmol/L Carbon Dioxide (22-30) mmol/L Anion Gap (10-20) BUN (7-17) mg/dL Creatinine (0.7-1.2) mg/dL Est GFR ( Amer) Est GFR (Non-Af Amer) POC Glucose (mg/dL) 288 H (65-110) mg/dL Random Glucose (65-105) mg/dL Calcium (8.6-10.4) mg/dl Phosphorus (2.5-4.5) mg/dL Magnesium (1.6-2.3) mg/dL Total Bilirubin (0.2-1.3) mg/dL AST (14-36) U/L ALT (9-52) U/L Alkaline Phosphatase (38-126) U/L Total Protein (6.3-8.3) g/dL Albumin (3.5-5.0) g/dL Globulin (2.2-3.9) gm/dL Albumin/Globulin Ratio (1.0-2.1) Venous Blood Potassium (3.6-5.2) mmol/L Ur L.pneumophila Ag (NEGATIVE) Blood Type Antibody Screen 06/09/18 06/09/18 06/09/18 Range/Units 17:18 16:09 15:37 WBC (4.8-10.8) K/uL RBC (3.80-5.20) Mil/uL Hgb (11.0-16.0) g/dL Hct (34.0-47.0) % MCV (81.0-99.0) fL MCH (27.0-31.0) pg MCHC (33.0-37.0) g/dL RDW (11.5-14.5) % Plt Count (130-400) K/uL MPV (7.2-11.7) fL Neut % (Auto) (50.0-75.0) % Lymph % (Auto) (20.0-40.0) % [place] % (Auto) (0.0-10.0) % Eos % (Auto) (0.0-4.0) % Baso % (Auto) (0.0-2.0) % Neut # (Auto) (1.8-7.0) K/uL Lymph # (Auto) (1.0-4.3) K/uL [place] # (Auto) (0.0-0.8) K/uL Eos # (Auto) (0.0-0.7) K/uL Baso # (Auto) (0.0-0.2) K/uL Neutrophils % (Manual) (50-75) % Band Neutrophils % (0-2) % Lymphocytes % (Manual) (20-40) % Reactive Lymphs % (0-0) % Monocytes % (Manual) (0-10) % Metamyelocytes % (0-0) % Platelet Estimate (NORMAL) Large Platelets Giant Platelets Polychromasia Hypochromasia (manual) Poikilocytosis (manual Anisocytosis (manual) Ovalocytes Leni Cells Rouleaux Smear Path Review PT (9.7-12.2) SECONDS INR APTT (21-34) SECONDS Puncture Site pCO2 (35-45) mm/Hg pO2 (80-100) mm/Hg HCO3 (21-28) mmol/L ABG pH (7.35-7.45) ABG Total CO2 (22-28) mmol/L ABG O2 Saturation (95-98) % ABG Base Excess (-2.0-3.0) mmol/L ABG Hemoglobin (11.7-17.4) g/dL ABG Carboxyhemoglobin (0.5-1.5) % POC ABG HHb (Measured) (0.0-5.0) % ABG Methemoglobin (0.0-3.0) % Leonardo Test VBG pH (7.32-7.43) VBG pCO2 (40-60) mmHg VBG HCO3 mmol/L VBG Total CO2 (22-28) mmol/L VBG O2 Sat (Calc) (40-65) % VBG Base Excess (0.0-2.0) mmol/L VBG Potassium (3.6-5.2) mmol/L A-a O2 Difference mm/Hg Respiratory Index Hgb O2 Saturation (95.0-98.0) % Glucose (65-105) mg/dl Lactate (0.7-2.1) mmol/L Vent Mode Mechanical Rate FiO2 % Tidal Volume PEEP Crit Value Called To Crit Value Called By Crit Value Read Back Blood Gas Notified Time Sodium (132-148) mmol/L Potassium (3.6-5.2) mmol/L Chloride (98-107) mmol/L Carbon Dioxide (22-30) mmol/L Anion Gap (10-20) BUN (7-17) mg/dL Creatinine (0.7-1.2) mg/dL Est GFR ( Amer) Est GFR (Non-Af Amer) POC Glucose (mg/dL) 280 H 240 H 251 H (65-110) mg/dL Random Glucose (65-105) mg/dL Calcium (8.6-10.4) mg/dl Phosphorus (2.5-4.5) mg/dL Magnesium (1.6-2.3) mg/dL Total Bilirubin (0.2-1.3) mg/dL AST (14-36) U/L ALT (9-52) U/L Alkaline Phosphatase (38-126) U/L Total Protein (6.3-8.3) g/dL Albumin (3.5-5.0) g/dL Globulin (2.2-3.9) gm/dL Albumin/Globulin Ratio (1.0-2.1) Venous Blood Potassium (3.6-5.2) mmol/L Ur L.pneumophila Ag (NEGATIVE) Blood Type Antibody Screen Laboratory Results - last 24 hr 06/09/18 06/09/18 06/09/18 15:37 16:09 17:18 WBC RBC Hgb Hct MCV MCH MCHC RDW Plt Count MPV Neut % (Auto) Lymph % (Auto) [place] % (Auto) Eos % (Auto) Baso % (Auto) Neut # (Auto) Lymph # (Auto) [place] # (Auto) Eos # (Auto) Baso # (Auto) Neutrophils % (Manual) Band Neutrophils % Lymphocytes % (Manual) Reactive Lymphs % Monocytes % (Manual) Metamyelocytes % Platelet Estimate Large Platelets Giant Platelets Polychromasia Hypochromasia (manual) Poikilocytosis (manual Anisocytosis (manual) Ovalocytes [place] Cells Rouleaux Smear Path Review PT INR APTT Puncture Site pCO2 pO2 HCO3 ABG pH ABG Total CO2 ABG O2 Saturation ABG Base Excess ABG Hemoglobin ABG Carboxyhemoglobin POC ABG HHb (Measured) ABG Methemoglobin Leonardo Test VBG pH VBG pCO2 VBG HCO3 VBG Total CO2 VBG O2 Sat (Calc) VBG Base Excess VBG Potassium A-a O2 Difference Respiratory Index Hgb O2 Saturation Glucose Lactate Vent Mode Mechanical Rate FiO2 Tidal Volume PEEP Crit Value Called To Crit Value Called By Crit Value Read Back Blood Gas Notified Time Sodium Potassium Chloride Carbon Dioxide Anion Gap BUN Creatinine Est GFR ( Amer) Est GFR (Non-Af Amer) POC Glucose (mg/dL) 251 H 240 H 280 H Random Glucose Calcium Phosphorus Magnesium Total Bilirubin AST ALT Alkaline Phosphatase Total Protein Albumin Globulin Albumin/Globulin Ratio Venous Blood Potassium Ur L.pneumophila Ag Blood Type Antibody Screen 06/09/18 06/09/18 06/09/18 17:49 18:17 18:17 WBC 39.4 H* D RBC 3.53 L Hgb 9.2 L Hct 30.1 L MCV 85.4 D MCH 26.0 L MCHC 30.4 L RDW 15.8 H Plt Count 141 D MPV 7.3 Neut % (Auto) 93.1 H Lymph % (Auto) 2.4 L [place] % (Auto) 3.1 Eos % (Auto) 1.1 Baso % (Auto) 0.3 Neut # (Auto) 36.7 H Lymph # (Auto) 0.9 L [place] # (Auto) 1.2 H Eos # (Auto) 0.4 Baso # (Auto) 0.1 Neutrophils % (Manual) 84 H Band Neutrophils % 9 H Lymphocytes % (Manual) 2 L Reactive Lymphs % 1 H Monocytes % (Manual) 3 Metamyelocytes % 1 H Platelet Estimate Normal Large Platelets Giant Platelets Polychromasia Slight Hypochromasia (manual) Poikilocytosis (manual Anisocytosis (manual) Slight Ovalocytes Leni Cells Rouleaux Slight Smear Path Review PT 115.7 H D INR 10.5 D APTT 75 H D Puncture Site pCO2 pO2 HCO3 ABG pH ABG Total CO2 ABG O2 Saturation ABG Base Excess ABG Hemoglobin ABG Carboxyhemoglobin POC ABG HHb (Measured) ABG Methemoglobin Leonardo Test VBG pH VBG pCO2 VBG HCO3 VBG Total CO2 VBG O2 Sat (Calc) VBG Base Excess VBG Potassium A-a O2 Difference Respiratory Index Hgb O2 Saturation Glucose Lactate Vent Mode Mechanical Rate FiO2 Tidal Volume PEEP Crit Value Called To Crit Value Called By Crit Value Read Back Blood Gas Notified Time Sodium Potassium Chloride Carbon Dioxide Anion Gap BUN Creatinine Est GFR ( Amer) Est GFR (Non-Af Amer) POC Glucose (mg/dL) 288 H Random Glucose Calcium Phosphorus Magnesium Total Bilirubin AST ALT Alkaline Phosphatase Total Protein Albumin Globulin Albumin/Globulin Ratio Venous Blood Potassium Ur L.pneumophila Ag Blood Type Antibody Screen 06/09/18 06/09/18 06/09/18 18:17 19:05 20:02 WBC RBC Hgb Hct MCV MCH MCHC RDW Plt Count MPV Neut % (Auto) Lymph % (Auto) [place] % (Auto) Eos % (Auto) Baso % (Auto) Neut # (Auto) Lymph # (Auto) [place] # (Auto) Eos # (Auto) Baso # (Auto) Neutrophils % (Manual) Band Neutrophils % Lymphocytes % (Manual) Reactive Lymphs % Monocytes % (Manual) Metamyelocytes % Platelet Estimate Large Platelets Giant Platelets Polychromasia Hypochromasia (manual) Poikilocytosis (manual Anisocytosis (manual) Ovalocytes [place] Cells Rouleaux Smear Path Review PT INR APTT Puncture Site pCO2 pO2 HCO3 ABG pH ABG Total CO2 ABG O2 Saturation ABG Base Excess ABG Hemoglobin ABG Carboxyhemoglobin POC ABG HHb (Measured) ABG Methemoglobin Leonardo Test VBG pH VBG pCO2 VBG HCO3 VBG Total CO2 VBG O2 Sat (Calc) VBG Base Excess VBG Potassium A-a O2 Difference Respiratory Index Hgb O2 Saturation Glucose Lactate Vent Mode Mechanical Rate FiO2 Tidal Volume PEEP Crit Value Called To Crit Value Called By Crit Value Read Back Blood Gas Notified Time Sodium 136 Potassium 5.3 H Chloride 98 Carbon Dioxide 17 L Anion Gap 26 H BUN 22 H Creatinine 1.7 H Est GFR ( Amer) 36 Est GFR (Non-Af Amer) 30 POC Glucose (mg/dL) 274 H 278 H Random Glucose 276 H Calcium 7.2 L Phosphorus Magnesium 2.7 H Total Bilirubin AST ALT Alkaline Phosphatase Total Protein Albumin Globulin Albumin/Globulin Ratio Venous Blood Potassium Ur L.pneumophila Ag Blood Type Antibody Screen 06/09/18 06/09/18 06/09/18 20:49 21:57 22:48 WBC RBC Hgb Hct MCV MCH MCHC RDW Plt Count MPV Neut % (Auto) Lymph % (Auto) [place] % (Auto) Eos % (Auto) Baso % (Auto) Neut # (Auto) Lymph # (Auto) [place] # (Auto) Eos # (Auto) Baso # (Auto) Neutrophils % (Manual) Band Neutrophils % Lymphocytes % (Manual) Reactive Lymphs % Monocytes % (Manual) Metamyelocytes % Platelet Estimate Large Platelets Giant Platelets Polychromasia Hypochromasia (manual) Poikilocytosis (manual Anisocytosis (manual) Ovalocytes [place] Cells Rouleaux Smear Path Review PT INR APTT Puncture Site pCO2 pO2 HCO3 ABG pH ABG Total CO2 ABG O2 Saturation ABG Base Excess ABG Hemoglobin ABG Carboxyhemoglobin POC ABG HHb (Measured) ABG Methemoglobin Leonardo Test VBG pH VBG pCO2 VBG HCO3 VBG Total CO2 VBG O2 Sat (Calc) VBG Base Excess VBG Potassium A-a O2 Difference Respiratory Index Hgb O2 Saturation Glucose Lactate Vent Mode Mechanical Rate FiO2 Tidal Volume PEEP Crit Value Called To Crit Value Called By Crit Value Read Back Blood Gas Notified Time Sodium Potassium Chloride Carbon Dioxide Anion Gap BUN Creatinine Est GFR ( Amer) Est GFR (Non-Af Amer) POC Glucose (mg/dL) 269 H 301 H 314 H Random Glucose Calcium Phosphorus Magnesium Total Bilirubin AST ALT Alkaline Phosphatase Total Protein Albumin Globulin Albumin/Globulin Ratio Venous Blood Potassium Ur L.pneumophila Ag Blood Type Antibody Screen 06/10/18 06/10/18 06/10/18 00:02 00:45 00:57 WBC 41.3 H* RBC 3.68 L Hgb 9.6 L Hct 31.8 L MCV 86.3 MCH 26.0 L MCHC 30.2 L RDW 16.3 H Plt Count 138 MPV 8.3 Neut % (Auto) 94.9 H Lymph % (Auto) 2.0 L [place] % (Auto) 0.9 Eos % (Auto) 1.6 Baso % (Auto) 0.6 Neut # (Auto) 39.2 H Lymph # (Auto) 0.8 L [place] # (Auto) 0.4 Eos # (Auto) 0.6 Baso # (Auto) 0.2 Neutrophils % (Manual) 85 H Band Neutrophils % 11 H* Lymphocytes % (Manual) 1 L Reactive Lymphs % Monocytes % (Manual) 1 Metamyelocytes % 2 H Platelet Estimate Normal Large Platelets Giant Platelets Polychromasia Hypochromasia (manual) Poikilocytosis (manual Slight Anisocytosis (manual) Slight Ovalocytes Leni Cells Rouleaux Smear Path Review PT INR APTT Puncture Site pCO2 pO2 HCO3 ABG pH ABG Total CO2 ABG O2 Saturation ABG Base Excess ABG Hemoglobin ABG Carboxyhemoglobin POC ABG HHb (Measured) ABG Methemoglobin Leonardo Test VBG pH VBG pCO2 VBG HCO3 VBG Total CO2 VBG O2 Sat (Calc) VBG Base Excess VBG Potassium A-a O2 Difference Respiratory Index Hgb O2 Saturation Glucose Lactate Vent Mode Mechanical Rate FiO2 Tidal Volume PEEP Crit Value Called To Crit Value Called By Crit Value Read Back Blood Gas Notified Time Sodium Potassium Chloride Carbon Dioxide Anion Gap BUN Creatinine Est GFR ( Amer) Est GFR (Non-Af Amer) POC Glucose (mg/dL) 317 H 353 H Random Glucose Calcium Phosphorus Magnesium Total Bilirubin AST ALT Alkaline Phosphatase Total Protein Albumin Globulin Albumin/Globulin Ratio Venous Blood Potassium Ur L.pneumophila Ag Blood Type Antibody Screen 06/10/18 06/10/18 06/10/18 00:57 02:19 02:31 WBC RBC Hgb Hct MCV MCH MCHC RDW Plt Count MPV Neut % (Auto) Lymph % (Auto) [place] % (Auto) Eos % (Auto) Baso % (Auto) Neut # (Auto) Lymph # (Auto) [place] # (Auto) Eos # (Auto) Baso # (Auto) Neutrophils % (Manual) Band Neutrophils % Lymphocytes % (Manual) Reactive Lymphs % Monocytes % (Manual) Metamyelocytes % Platelet Estimate Large Platelets Giant Platelets Polychromasia Hypochromasia (manual) Poikilocytosis (manual Anisocytosis (manual) Ovalocytes Leni Cells Rouleaux Smear Path Review PT 109.1 H D INR 9.9 APTT 73 H Puncture Site pCO2 pO2 HCO3 ABG pH ABG Total CO2 ABG O2 Saturation ABG Base Excess ABG Hemoglobin ABG Carboxyhemoglobin POC ABG HHb (Measured) ABG Methemoglobin Leonardo Test VBG pH VBG pCO2 VBG HCO3 VBG Total CO2 VBG O2 Sat (Calc) VBG Base Excess VBG Potassium A-a O2 Difference Respiratory Index Hgb O2 Saturation Glucose Lactate Vent Mode Mechanical Rate FiO2 Tidal Volume PEEP Crit Value Called To Crit Value Called By Crit Value Read Back Blood Gas Notified Time Sodium 132 Potassium 5.2 Chloride 95 L Carbon Dioxide 15 L Anion Gap 27 H BUN 24 H Creatinine 1.8 H Est GFR ( Amer) 34 Est GFR (Non-Af Amer) 28 POC Glucose (mg/dL) 344 H Random Glucose 347 H Calcium 7.0 L Phosphorus 10.3 H Magnesium 2.6 H Total Bilirubin 3.6 H AST 53057 H ALT 4123 H Alkaline Phosphatase 161 H D Total Protein 4.8 L Albumin 2.3 L Globulin 2.6 Albumin/Globulin Ratio 0.9 L Venous Blood Potassium Ur L.pneumophila Ag Blood Type Antibody Screen 06/10/18 06/10/18 06/10/18 03:19 04:17 04:45 WBC RBC Hgb Hct MCV MCH MCHC RDW Plt Count MPV Neut % (Auto) Lymph % (Auto) [place] % (Auto) Eos % (Auto) Baso % (Auto) Neut # (Auto) Lymph # (Auto) [place] # (Auto) Eos # (Auto) Baso # (Auto) Neutrophils % (Manual) Band Neutrophils % Lymphocytes % (Manual) Reactive Lymphs % Monocytes % (Manual) Metamyelocytes % Platelet Estimate Large Platelets Giant Platelets Polychromasia Hypochromasia (manual) Poikilocytosis (manual Anisocytosis (manual) Ovalocytes [place] Cells Rouleaux Smear Path Review PT INR APTT Puncture Site Rb pCO2 44 pO2 99 HCO3 9.6 L* ABG pH 7.00 L* ABG Total CO2 12.3 L ABG O2 Saturation 98.2 H ABG Base Excess -19.6 L ABG Hemoglobin 10.3 L ABG Carboxyhemoglobin 1.6 H POC ABG HHb (Measured) 1.8 ABG Methemoglobin 0.8 Leonardo Test Na VBG pH VBG pCO2 VBG HCO3 VBG Total CO2 VBG O2 Sat (Calc) VBG Base Excess VBG Potassium A-a O2 Difference 416.0 Respiratory Index 4.2 Hgb O2 Saturation 95.8 Glucose Lactate Vent Mode Prvc Mechanical Rate 18 FiO2 80.0 Tidal Volume 500 PEEP 5 Crit Value Called To Catherine barnett/rn Crit Value Called By Gunner qureshi/rt Crit Value Read Back Y Blood Gas Notified Time 505 Sodium Potassium Chloride Carbon Dioxide Anion Gap BUN Creatinine Est GFR ( Amer) Est GFR (Non-Af Amer) POC Glucose (mg/dL) 353 H 365 H Random Glucose Calcium Phosphorus Magnesium Total Bilirubin AST ALT Alkaline Phosphatase Total Protein Albumin Globulin Albumin/Globulin Ratio Venous Blood Potassium Ur L.pneumophila Ag Blood Type Antibody Screen 06/10/18 06/10/18 06/10/18 05:00 06:17 07:26 WBC RBC Hgb Hct MCV MCH MCHC RDW Plt Count MPV Neut % (Auto) Lymph % (Auto) [place] % (Auto) Eos % (Auto) Baso % (Auto) Neut # (Auto) Lymph # (Auto) [place] # (Auto) Eos # (Auto) Baso # (Auto) Neutrophils % (Manual) Band Neutrophils % Lymphocytes % (Manual) Reactive Lymphs % Monocytes % (Manual) Metamyelocytes % Platelet Estimate Large Platelets Giant Platelets Polychromasia Hypochromasia (manual) Poikilocytosis (manual Anisocytosis (manual) Ovalocytes Leni Cells Rouleaux Smear Path Review PT INR APTT Puncture Site pCO2 pO2 HCO3 ABG pH ABG Total CO2 ABG O2 Saturation ABG Base Excess ABG Hemoglobin ABG Carboxyhemoglobin POC ABG HHb (Measured) ABG Methemoglobin Leonardo Test VBG pH VBG pCO2 VBG HCO3 VBG Total CO2 VBG O2 Sat (Calc) VBG Base Excess VBG Potassium A-a O2 Difference Respiratory Index Hgb O2 Saturation Glucose Lactate Vent Mode Mechanical Rate FiO2 Tidal Volume PEEP Crit Value Called To Crit Value Called By Crit Value Read Back Blood Gas Notified Time Sodium Potassium Chloride Carbon Dioxide Anion Gap BUN Creatinine Est GFR ( Amer) Est GFR (Non-Af Amer) POC Glucose (mg/dL) 359 H 354 H 377 H Random Glucose Calcium Phosphorus Magnesium Total Bilirubin AST ALT Alkaline Phosphatase Total Protein Albumin Globulin Albumin/Globulin Ratio Venous Blood Potassium Ur L.pneumophila Ag Blood Type Antibody Screen 06/10/18 06/10/18 06/10/18 07:39 07:39 07:39 WBC 31.5 H RBC 2.90 L Hgb 7.5 L D Hct 25.2 L MCV 86.7 MCH 25.8 L MCHC 29.7 L RDW 15.5 H Plt Count 103 L D MPV 7.5 Neut % (Auto) 92.6 H Lymph % (Auto) 3.3 L [place] % (Auto) 2.7 Eos % (Auto) 1.2 Baso % (Auto) 0.2 Neut # (Auto) 29.2 H Lymph # (Auto) 1.1 [place] # (Auto) 0.8 Eos # (Auto) 0.4 Baso # (Auto) 0.1 Neutrophils % (Manual) 74 Band Neutrophils % 20 H* Lymphocytes % (Manual) 4 L Reactive Lymphs % Monocytes % (Manual) 2 Metamyelocytes % Platelet Estimate Slightly decreased L Large Platelets Present Giant Platelets Present Polychromasia Hypochromasia (manual) Slight Poikilocytosis (manual Slight Anisocytosis (manual) Slight Ovalocytes Slight Leni Cells Slight Rouleaux Smear Path Review PT > 320.0 H D INR > 10.0 APTT 71 H Puncture Site pCO2 pO2 HCO3 ABG pH ABG Total CO2 ABG O2 Saturation ABG Base Excess ABG Hemoglobin ABG Carboxyhemoglobin POC ABG HHb (Measured) ABG Methemoglobin Leonardo Test VBG pH VBG pCO2 VBG HCO3 VBG Total CO2 VBG O2 Sat (Calc) VBG Base Excess VBG Potassium A-a O2 Difference Respiratory Index Hgb O2 Saturation Glucose Lactate Vent Mode Mechanical Rate FiO2 Tidal Volume PEEP Crit Value Called To Crit Value Called By Crit Value Read Back Blood Gas Notified Time Sodium 132 Potassium 5.6 H Chloride 93 L Carbon Dioxide 16 L Anion Gap 29 H BUN 25 H Creatinine 1.9 H Est GFR ( Amer) 32 Est GFR (Non-Af Amer) 26 POC Glucose (mg/dL) Random Glucose 303 H Calcium 6.7 L Phosphorus Magnesium 2.5 H Total Bilirubin AST ALT Alkaline Phosphatase Total Protein Albumin Globulin Albumin/Globulin Ratio Venous Blood Potassium Ur L.pneumophila Ag Blood Type Antibody Screen 06/10/18 06/10/18 06/10/18 08:02 08:47 09:18 WBC RBC Hgb Hct MCV MCH MCHC RDW Plt Count MPV Neut % (Auto) Lymph % (Auto) [place] % (Auto) Eos % (Auto) Baso % (Auto) Neut # (Auto) Lymph # (Auto) [place] # (Auto) Eos # (Auto) Baso # (Auto) Neutrophils % (Manual) Band Neutrophils % Lymphocytes % (Manual) Reactive Lymphs % Monocytes % (Manual) Metamyelocytes % Platelet Estimate Large Platelets Giant Platelets Polychromasia Hypochromasia (manual) Poikilocytosis (manual Anisocytosis (manual) Ovalocytes Leni Cells Rouleaux Smear Path Review PT INR APTT Puncture Site pCO2 pO2 HCO3 ABG pH ABG Total CO2 ABG O2 Saturation ABG Base Excess ABG Hemoglobin ABG Carboxyhemoglobin POC ABG HHb (Measured) ABG Methemoglobin Leonardo Test VBG pH VBG pCO2 VBG HCO3 VBG Total CO2 VBG O2 Sat (Calc) VBG Base Excess VBG Potassium A-a O2 Difference Respiratory Index Hgb O2 Saturation Glucose Lactate Vent Mode Mechanical Rate FiO2 Tidal Volume PEEP Crit Value Called To Crit Value Called By Crit Value Read Back Blood Gas Notified Time Sodium Potassium Chloride Carbon Dioxide Anion Gap BUN Creatinine Est GFR ( Amer) Est GFR (Non-Af Amer) POC Glucose (mg/dL) 330 H 321 H Random Glucose Calcium Phosphorus Magnesium Total Bilirubin AST ALT Alkaline Phosphatase Total Protein Albumin Globulin Albumin/Globulin Ratio Venous Blood Potassium Ur L.pneumophila Ag Blood Type B POSITIVE Antibody Screen Negative 06/10/18 06/10/18 06/10/18 10:11 10:48 12:25 WBC RBC Hgb Hct MCV MCH MCHC RDW Plt Count MPV Neut % (Auto) Lymph % (Auto) [place] % (Auto) Eos % (Auto) Baso % (Auto) Neut # (Auto) Lymph # (Auto) [place] # (Auto) Eos # (Auto) Baso # (Auto) Neutrophils % (Manual) Band Neutrophils % Lymphocytes % (Manual) Reactive Lymphs % Monocytes % (Manual) Metamyelocytes % Platelet Estimate Large Platelets Giant Platelets Polychromasia Hypochromasia (manual) Poikilocytosis (manual Anisocytosis (manual) Ovalocytes Leni Cells Rouleaux Smear Path Review PT INR APTT Puncture Site pCO2 pO2 18 L HCO3 ABG pH ABG Total CO2 ABG O2 Saturation ABG Base Excess ABG Hemoglobin ABG Carboxyhemoglobin POC ABG HHb (Measured) ABG Methemoglobin Leonardo Test VBG pH 6.98 L* VBG pCO2 61 H VBG HCO3 8.8 VBG Total CO2 16.3 L VBG O2 Sat (Calc) 40.8 VBG Base Excess -17.7 L VBG Potassium 3.3 L A-a O2 Difference Respiratory Index Hgb O2 Saturation Glucose 625 H* D Lactate 8.5 H* Vent Mode Mechanical Rate FiO2 100.0 Tidal Volume PEEP 5 Crit Value Called To Dr streeter Crit Value Called By Lior patten freelance art director Crit Value Read Back Y Blood Gas Notified Time 1050 Sodium < 100.0 L* Potassium Chloride 46.0 L Carbon Dioxide Anion Gap BUN Creatinine Est GFR ( Amer) Est GFR (Non-Af Amer) POC Glucose (mg/dL) 298 H Random Glucose Calcium Phosphorus Magnesium Total Bilirubin AST ALT Alkaline Phosphatase Total Protein Albumin Globulin Albumin/Globulin Ratio Venous Blood Potassium 3.3 L Ur L.pneumophila Ag Negative Blood Type Antibody Screen Fingerstick Blood Sugar Results: 298 Review of Systems - Review of Systems Systems not reviewed;Unavailable: Intubated Critical Care Progress Note - Nutrition Nutrition: Nutrition Category Date Time Status NPO Diet [DIET] Diets 06/09/18 Breakfast Active Assessment/Plan - Assessment and Plan (Free Text) Plan: Patient is a 72 year old female with past medical history of COPD on home oxygen, hypertension, CAD, hyperlipidemia, epilepsy, osteoporosis presenting to ED with chief complaint of cardiac arrest, s/p ACLS protocol with ROSC, s/p intubation and unresponsive. 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 Moderate to fairly significant generalized volume loss - hypothermia protocol aborted Pulm: - s/p intubation - CXR shows ill-defined perihilar consolidation may represent pneumonia or possible mass. Mild cardiomegaly, moderate pulmonary venous congestion. - maintain SPO2> 92 % - Duonebs 3 ml INH RQ6 CV: - maintain MAP> 65 - Vasopressors: dopamine, Levophed, Vasopressin, Phenylephrine - followup ECHO - Cardiology consulted. Appreciate recs. GI: - Protonix 40 mg IV daily - NPO Renal: - monitor I and O - monitor and replete electrolytes Endo: - maintain euglycemia with blood sugars 140-180 - holding ISS Heme: - monitor H&H ID: - Afebrile, WBC count on admission 24.2 - Followup blood cultures, urine cultures - Cefepime 2 grams given - Moxifloxacin 400 mg given - Vancomycin 2 grams given - Continue Zosyn 3.375 grams IV Q6H Dispo: ICU, s/p intubation FEN: NPO Access: central line, peripheral IVs Consults: Cardio, Neuro PPX: Protonix for GI, SCDs, heparin 5000 units SC Q8 Patient seen, reviewed, and discussed with attending, Dr. Rony Daniels PGY-1 - Date & Time Date: 06/10/18 Time: 16:28 <Alan Streeter - Last Filed: 06/10/18 18:49> CCU Objective - Vital Signs / Intake & Output Vital Signs (Last 4 hours): Vital Signs Pulse Resp BP 06/10/18 16:30 0 L 06/10/18 16:15 0 L 06/10/18 16:00 28 H 06/10/18 15:45 82 28 H 06/10/18 15:30 82 28 H 06/10/18 15:25 82 28 H 42/20 L 06/10/18 15:15 82 28 H 06/10/18 15:00 82 28 H Intake and Output (Last 8hrs): Intake & Output 06/10/18 06/10/18 06/10/18 06:59 14:59 22:59 Intake Total 3836.2 3837.6 1153.8 Output Total 55 10 Balance 3781.2 3827.6 1153.8 Weight 230 lb Intake: IV 1803.6 1346.4 250 Intake, IV Amount 2032.6 2116.2 578.8 Right Medial Port 590 630 180 Femoral Y-site Right Antecubital 45 229 100 Right Antecubital Y-site 100 Right Distal Port Femoral 678.4 576 144 Right Fem TLC Y 62 Right Medial Port Femoral 19.2 19.2 4.8 Right Proximal Port 600 600 150 Femoral Blood Product 325 325 Red Blood Cells Cpd As1 0 325 Lr Unit [id number] Red Blood Cells Cpd As1 325 Lr Unit [id number] Other 50 Red Blood Cells Cpd As1 50 Lr Unit [id number] Output: Urine 55 10 Urethral (Martinez) 55 10 - Medications Active Medications: Active Medications Generic Name Dose Route Start Last Admin Trade Name Freq PRN Reason Stop Dose Admin Albuterol/Ipratropium 3 ml 06/09/18 14:00 06/10/18 14:17 Duoneb 3 Mg/0.5 Mg (3 Ml) Ud INH Not Given RQ6 JULIO Dextrose 0 ml 06/09/18 10:29 Dextrose 50% Inj IV STAT PRN Hypoglycemia Protocol Protocol Dextrose 15 gm 06/09/18 10:29 Glutose 15 PO ONCE PRN Hypoglycemia Protocol Protocol Glucagon 1 mg 06/09/18 10:29 Glucagen Diagnostic Kit IM STAT PRN Hypoglycemia Protocol Protocol Dextrose 1,000 mls @ 0 mls/hr 06/09/18 10:29 Dextrose 5% In Water 1000 Ml IV .Q0M PRN Hypoglycemia Protocol Protocol Per Protocol Vasopressin 40 units/ Sodium 40 mls @ 0.6 mls/hr 06/09/18 10:45 06/10/18 11:58 Chloride IV Not Given .Q24H JULIO Protocol 0.01 UNITS/MIN Phenylephrine HCl 30 mg/ 253 mls @ 10.12 mls/hr 06/09/18 13:30 06/10/18 14:19 Sodium Chloride IV 180 mcg/min .Q24H PRN 91.08 mls/hr TITRATE PER MD ORDER Administration Protocol 20 MCG/MIN Dopamine HCl/Dextrose 400 mg in 250 mls @ 7.202 mls/hr 06/09/18 13:50 06/10/18 15:25 Dopamine 400mg/250ml D5w IV 20 mcg/kg/min .Q24H PRN 72.02 mls/hr TITRATE PER MD ORDER Administration Protocol 2 MCG/KG/MIN Piperacillin Sod/Tazobactam Sod 2.25 gm in 50 mls @ 100 mls/hr 06/10/18 11:00 06/10/18 14:09 Zosyn 2.25 Gm Iv Premix IVPB 100 mls/hr Q6H JULIO Administration Protocol Sodium Bicarbonate 150 meq/ 1,150 mls @ 50 mls/hr 06/10/18 12:00 06/10/18 11: 36 Sodium Chloride IV 50 mls/hr .Q23H JULIO Administration Norepinephrine Bitartrate 8 mg 500 mls @ 15 mls/hr 06/10/18 11:45 06/10/18 12:49 / Dextrose IV 4 mcg/min .Q24H PRN 15 mls/hr TITRATE PER MD ORDER Administration Protocol 4 MCG/MIN Pantoprazole Sodium 40 mg 06/10/18 10:00 06/10/18 10:00 Protonix Inj IVP 40 mg DAILY JULIO Administration - Patient Studies Lab Studies: Microbiology Studies 06/09/18 10:01 MRSA Culture (Admit) - Final Naris MRSA NOT DETECTED 06/09/18 09:15 Blood Culture - Preliminary Blood-Thru Central Line NO GROWTH AFTER 24 HOURS 06/09/18 09:15 Blood Culture - Preliminary Blood-Thru Central Line NO GROWTH AFTER 24 HOURS Lab Studies 06/10/18 06/10/18 06/10/18 Range/Units 12:25 10:48 10:11 WBC (4.8-10.8) K/uL RBC (3.80-5.20) Mil/uL Hgb (11.0-16.0) g/dL Hct (34.0-47.0) % MCV (81.0-99.0) fL MCH (27.0-31.0) pg MCHC (33.0-37.0) g/dL RDW (11.5-14.5) % Plt Count (130-400) K/uL MPV (7.2-11.7) fL Neut % (Auto) (50.0-75.0) % Lymph % (Auto) (20.0-40.0) % [place] % (Auto) (0.0-10.0) % Eos % (Auto) (0.0-4.0) % Baso % (Auto) (0.0-2.0) % Neut # (Auto) (1.8-7.0) K/uL Lymph # (Auto) (1.0-4.3) K/uL [place] # (Auto) (0.0-0.8) K/uL Eos # (Auto) (0.0-0.7) K/uL Baso # (Auto) (0.0-0.2) K/uL Neutrophils % (Manual) (50-75) % Band Neutrophils % (0-2) % Lymphocytes % (Manual) (20-40) % Reactive Lymphs % (0-0) % Monocytes % (Manual) (0-10) % Metamyelocytes % (0-0) % Platelet Estimate (NORMAL) Large Platelets Giant Platelets Polychromasia Hypochromasia (manual) Poikilocytosis (manual Anisocytosis (manual) Ovalocytes [place] Cells Rouleaux Smear Path Review PT (9.7-12.2) SECONDS INR APTT (21-34) SECONDS Puncture Site pCO2 (35-45) mm/Hg pO2 18 L (80-100) mm/Hg HCO3 (21-28) mmol/L ABG pH (7.35-7.45) ABG Total CO2 (22-28) mmol/L ABG O2 Saturation (95-98) % ABG Base Excess (-2.0-3.0) mmol/L ABG Hemoglobin (11.7-17.4) g/dL ABG Carboxyhemoglobin (0.5-1.5) % POC ABG HHb (Measured) (0.0-5.0) % ABG Methemoglobin (0.0-3.0) % Leonardo Test VBG pH 6.98 L* (7.32-7.43) VBG pCO2 61 H (40-60) mmHg VBG HCO3 8.8 mmol/L VBG Total CO2 16.3 L (22-28) mmol/L VBG O2 Sat (Calc) 40.8 (40-65) % VBG Base Excess -17.7 L (0.0-2.0) mmol/L VBG Potassium 3.3 L (3.6-5.2) mmol/L A-a O2 Difference mm/Hg Respiratory Index Hgb O2 Saturation (95.0-98.0) % Glucose 625 H* D (65-105) mg/dl Lactate 8.5 H* (0.7-2.1) mmol/L Vent Mode Mechanical Rate FiO2 100.0 % Tidal Volume PEEP 5 Crit Value Called To Dr streeter Crit Value Called By Lior patten freelance art director Crit Value Read Back Y Blood Gas Notified Time 1050 Sodium < 100.0 L* (132-148) mmol/L Potassium (3.6-5.2) mmol/L Chloride 46.0 L (98-107) mmol/L Carbon Dioxide (22-30) mmol/L Anion Gap (10-20) BUN (7-17) mg/dL Creatinine (0.7-1.2) mg/dL Est GFR ( Amer) Est GFR (Non-Af Amer) POC Glucose (mg/dL) 298 H (65-110) mg/dL Random Glucose (65-105) mg/dL Calcium (8.6-10.4) mg/dl Phosphorus (2.5-4.5) mg/dL Magnesium (1.6-2.3) mg/dL Total Bilirubin (0.2-1.3) mg/dL AST (14-36) U/L ALT (9-52) U/L Alkaline Phosphatase (38-126) U/L Total Protein (6.3-8.3) g/dL Albumin (3.5-5.0) g/dL Globulin (2.2-3.9) gm/dL Albumin/Globulin Ratio (1.0-2.1) Venous Blood Potassium 3.3 L (3.6-5.2) mmol/L Ur L.pneumophila Ag Negative (NEGATIVE) Blood Type Antibody Screen 06/10/18 06/10/18 06/10/18 Range/Units 09:18 08:47 08:02 WBC (4.8-10.8) K/uL RBC (3.80-5.20) Mil/uL Hgb (11.0-16.0) g/dL Hct (34.0-47.0) % MCV (81.0-99.0) fL MCH (27.0-31.0) pg MCHC (33.0-37.0) g/dL RDW (11.5-14.5) % Plt Count (130-400) K/uL MPV (7.2-11.7) fL Neut % (Auto) (50.0-75.0) % Lymph % (Auto) (20.0-40.0) % [place] % (Auto) (0.0-10.0) % Eos % (Auto) (0.0-4.0) % Baso % (Auto) (0.0-2.0) % Neut # (Auto) (1.8-7.0) K/uL Lymph # (Auto) (1.0-4.3) K/uL [place] # (Auto) (0.0-0.8) K/uL Eos # (Auto) (0.0-0.7) K/uL Baso # (Auto) (0.0-0.2) K/uL Neutrophils % (Manual) (50-75) % Band Neutrophils % (0-2) % Lymphocytes % (Manual) (20-40) % Reactive Lymphs % (0-0) % Monocytes % (Manual) (0-10) % Metamyelocytes % (0-0) % Platelet Estimate (NORMAL) Large Platelets Giant Platelets Polychromasia Hypochromasia (manual) Poikilocytosis (manual Anisocytosis (manual) Ovalocytes Leni Cells Rouleaux Smear Path Review PT (9.7-12.2) SECONDS INR APTT (21-34) SECONDS Puncture Site pCO2 (35-45) mm/Hg pO2 (80-100) mm/Hg HCO3 (21-28) mmol/L ABG pH (7.35-7.45) ABG Total CO2 (22-28) mmol/L ABG O2 Saturation (95-98) % ABG Base Excess (-2.0-3.0) mmol/L ABG Hemoglobin (11.7-17.4) g/dL ABG Carboxyhemoglobin (0.5-1.5) % POC ABG HHb (Measured) (0.0-5.0) % ABG Methemoglobin (0.0-3.0) % Leonardo Test VBG pH (7.32-7.43) VBG pCO2 (40-60) mmHg VBG HCO3 mmol/L VBG Total CO2 (22-28) mmol/L VBG O2 Sat (Calc) (40-65) % VBG Base Excess (0.0-2.0) mmol/L VBG Potassium (3.6-5.2) mmol/L A-a O2 Difference mm/Hg Respiratory Index Hgb O2 Saturation (95.0-98.0) % Glucose (65-105) mg/dl Lactate (0.7-2.1) mmol/L Vent Mode Mechanical Rate FiO2 % Tidal Volume PEEP Crit Value Called To Crit Value Called By Crit Value Read Back Blood Gas Notified Time Sodium (132-148) mmol/L Potassium (3.6-5.2) mmol/L Chloride (98-107) mmol/L Carbon Dioxide (22-30) mmol/L Anion Gap (10-20) BUN (7-17) mg/dL Creatinine (0.7-1.2) mg/dL Est GFR ( Amer) Est GFR (Non-Af Amer) POC Glucose (mg/dL) 321 H 330 H (65-110) mg/dL Random Glucose (65-105) mg/dL Calcium (8.6-10.4) mg/dl Phosphorus (2.5-4.5) mg/dL Magnesium (1.6-2.3) mg/dL Total Bilirubin (0.2-1.3) mg/dL AST (14-36) U/L ALT (9-52) U/L Alkaline Phosphatase (38-126) U/L Total Protein (6.3-8.3) g/dL Albumin (3.5-5.0) g/dL Globulin (2.2-3.9) gm/dL Albumin/Globulin Ratio (1.0-2.1) Venous Blood Potassium (3.6-5.2) mmol/L Ur L.pneumophila Ag (NEGATIVE) Blood Type B POSITIVE Antibody Screen Negative 06/10/18 06/10/18 06/10/18 Range/Units 07:39 07:39 07:39 WBC 31.5 H (4.8-10.8) K/uL RBC 2.90 L (3.80-5.20) Mil/uL Hgb 7.5 L D (11.0-16.0) g/dL Hct 25.2 L (34.0-47.0) % MCV 86.7 (81.0-99.0) fL MCH 25.8 L (27.0-31.0) pg MCHC 29.7 L (33.0-37.0) g/dL RDW 15.5 H (11.5-14.5) % Plt Count 103 L D (130-400) K/uL MPV 7.5 (7.2-11.7) fL Neut % (Auto) 92.6 H (50.0-75.0) % Lymph % (Auto) 3.3 L (20.0-40.0) % [place] % (Auto) 2.7 (0.0-10.0) % Eos % (Auto) 1.2 (0.0-4.0) % Baso % (Auto) 0.2 (0.0-2.0) % Neut # (Auto) 29.2 H (1.8-7.0) K/uL Lymph # (Auto) 1.1 (1.0-4.3) K/uL [place] # (Auto) 0.8 (0.0-0.8) K/uL Eos # (Auto) 0.4 (0.0-0.7) K/uL Baso # (Auto) 0.1 (0.0-0.2) K/uL Neutrophils % (Manual) 74 (50-75) % Band Neutrophils % 20 H* (0-2) % Lymphocytes % (Manual) 4 L (20-40) % Reactive Lymphs % (0-0) % Monocytes % (Manual) 2 (0-10) % Metamyelocytes % (0-0) % Platelet Estimate Slightly decreased L (NORMAL) Large Platelets Present Giant Platelets Present Polychromasia Hypochromasia (manual) Slight Poikilocytosis (manual Slight Anisocytosis (manual) Slight Ovalocytes Slight Leni Cells Slight Rouleaux Smear Path Review PT > 320.0 H D (9.7-12.2) SECONDS INR > 10.0 APTT 71 H (21-34) SECONDS Puncture Site pCO2 (35-45) mm/Hg pO2 (80-100) mm/Hg HCO3 (21-28) mmol/L ABG pH (7.35-7.45) ABG Total CO2 (22-28) mmol/L ABG O2 Saturation (95-98) % ABG Base Excess (-2.0-3.0) mmol/L ABG Hemoglobin (11.7-17.4) g/dL ABG Carboxyhemoglobin (0.5-1.5) % POC ABG HHb (Measured) (0.0-5.0) % ABG Methemoglobin (0.0-3.0) % Leonardo Test VBG pH (7.32-7.43) VBG pCO2 (40-60) mmHg VBG HCO3 mmol/L VBG Total CO2 (22-28) mmol/L VBG O2 Sat (Calc) (40-65) % VBG Base Excess (0.0-2.0) mmol/L VBG Potassium (3.6-5.2) mmol/L A-a O2 Difference mm/Hg Respiratory Index Hgb O2 Saturation (95.0-98.0) % Glucose (65-105) mg/dl Lactate (0.7-2.1) mmol/L Vent Mode Mechanical Rate FiO2 % Tidal Volume PEEP Crit Value Called To Crit Value Called By Crit Value Read Back Blood Gas Notified Time Sodium 132 (132-148) mmol/L Potassium 5.6 H (3.6-5.2) mmol/L Chloride 93 L (98-107) mmol/L Carbon Dioxide 16 L (22-30) mmol/L Anion Gap 29 H (10-20) BUN 25 H (7-17) mg/dL Creatinine 1.9 H (0.7-1.2) mg/dL Est GFR ( Amer) 32 Est GFR (Non-Af Amer) 26 POC Glucose (mg/dL) (65-110) mg/dL Random Glucose 303 H (65-105) mg/dL Calcium 6.7 L (8.6-10.4) mg/dl Phosphorus (2.5-4.5) mg/dL Magnesium 2.5 H (1.6-2.3) mg/dL Total Bilirubin (0.2-1.3) mg/dL AST (14-36) U/L ALT (9-52) U/L Alkaline Phosphatase (38-126) U/L Total Protein (6.3-8.3) g/dL Albumin (3.5-5.0) g/dL Globulin (2.2-3.9) gm/dL Albumin/Globulin Ratio (1.0-2.1) Venous Blood Potassium (3.6-5.2) mmol/L Ur L.pneumophila Ag (NEGATIVE) Blood Type Antibody Screen 1006/10/18 06/10/18 Range/Units 07:26 06:17 05:00 WBC (4.8-10.8) K/uL RBC (3.80-5.20) Mil/uL Hgb (11.0-16.0) g/dL Hct (34.0-47.0) % MCV (81.0-99.0) fL MCH (27.0-31.0) pg MCHC (33.0-37.0) g/dL RDW (11.5-14.5) % Plt Count (130-400) K/uL MPV (7.2-11.7) fL Neut % (Auto) (50.0-75.0) % Lymph % (Auto) (20.0-40.0) % [place] % (Auto) (0.0-10.0) % Eos % (Auto) (0.0-4.0) % Baso % (Auto) (0.0-2.0) % Neut # (Auto) (1.8-7.0) K/uL Lymph # (Auto) (1.0-4.3) K/uL [place] # (Auto) (0.0-0.8) K/uL Eos # (Auto) (0.0-0.7) K/uL Baso # (Auto) (0.0-0.2) K/uL Neutrophils % (Manual) (50-75) % Band Neutrophils % (0-2) % Lymphocytes % (Manual) (20-40) % Reactive Lymphs % (0-0) % Monocytes % (Manual) (0-10) % Metamyelocytes % (0-0) % Platelet Estimate (NORMAL) Large Platelets Giant Platelets Polychromasia Hypochromasia (manual) Poikilocytosis (manual Anisocytosis (manual) Ovalocytes [place] Cells Rouleaux Smear Path Review PT (9.7-12.2) SECONDS INR APTT (21-34) SECONDS Puncture Site pCO2 (35-45) mm/Hg pO2 (80-100) mm/Hg HCO3 (21-28) mmol/L ABG pH (7.35-7.45) ABG Total CO2 (22-28) mmol/L ABG O2 Saturation (95-98) % ABG Base Excess (-2.0-3.0) mmol/L ABG Hemoglobin (11.7-17.4) g/dL ABG Carboxyhemoglobin (0.5-1.5) % POC ABG HHb (Measured) (0.0-5.0) % ABG Methemoglobin (0.0-3.0) % Leonardo Test VBG pH (7.32-7.43) VBG pCO2 (40-60) mmHg VBG HCO3 mmol/L VBG Total CO2 (22-28) mmol/L VBG O2 Sat (Calc) (40-65) % VBG Base Excess (0.0-2.0) mmol/L VBG Potassium (3.6-5.2) mmol/L A-a O2 Difference mm/Hg Respiratory Index Hgb O2 Saturation (95.0-98.0) % Glucose (65-105) mg/dl Lactate (0.7-2.1) mmol/L Vent Mode Mechanical Rate FiO2 % Tidal Volume PEEP Crit Value Called To Crit Value Called By Crit Value Read Back Blood Gas Notified Time Sodium (132-148) mmol/L Potassium (3.6-5.2) mmol/L Chloride (98-107) mmol/L Carbon Dioxide (22-30) mmol/L Anion Gap (10-20) BUN (7-17) mg/dL Creatinine (0.7-1.2) mg/dL Est GFR ( Amer) Est GFR (Non-Af Amer) POC Glucose (mg/dL) 377 H 354 H 359 H (65-110) mg/dL Random Glucose (65-105) mg/dL Calcium (8.6-10.4) mg/dl Phosphorus (2.5-4.5) mg/dL Magnesium (1.6-2.3) mg/dL Total Bilirubin (0.2-1.3) mg/dL AST (14-36) U/L ALT (9-52) U/L Alkaline Phosphatase (38-126) U/L Total Protein (6.3-8.3) g/dL Albumin (3.5-5.0) g/dL Globulin (2.2-3.9) gm/dL Albumin/Globulin Ratio (1.0-2.1) Venous Blood Potassium (3.6-5.2) mmol/L Ur L.pneumophila Ag (NEGATIVE) Blood Type Antibody Screen 06/10/18 06/10/18 06/10/18 Range/Units 04:45 04:17 03:19 WBC (4.8-10.8) K/uL RBC (3.80-5.20) Mil/uL Hgb (11.0-16.0) g/dL Hct (34.0-47.0) % MCV (81.0-99.0) fL MCH (27.0-31.0) pg MCHC (33.0-37.0) g/dL RDW (11.5-14.5) % Plt Count (130-400) K/uL MPV (7.2-11.7) fL Neut % (Auto) (50.0-75.0) % Lymph % (Auto) (20.0-40.0) % [place] % (Auto) (0.0-10.0) % Eos % (Auto) (0.0-4.0) % Baso % (Auto) (0.0-2.0) % Neut # (Auto) (1.8-7.0) K/uL Lymph # (Auto) (1.0-4.3) K/uL [place] # (Auto) (0.0-0.8) K/uL Eos # (Auto) (0.0-0.7) K/uL Baso # (Auto) (0.0-0.2) K/uL Neutrophils % (Manual) (50-75) % Band Neutrophils % (0-2) % Lymphocytes % (Manual) (20-40) % Reactive Lymphs % (0-0) % Monocytes % (Manual) (0-10) % Metamyelocytes % (0-0) % Platelet Estimate (NORMAL) Large Platelets Giant Platelets Polychromasia Hypochromasia (manual) Poikilocytosis (manual Anisocytosis (manual) Ovalocytes [place] Cells Rouleaux Smear Path Review PT (9.7-12.2) SECONDS INR APTT (21-34) SECONDS Puncture Site Rb pCO2 44 (35-45) mm/Hg pO2 99 (80-100) mm/Hg HCO3 9.6 L* (21-28) mmol/L ABG pH 7.00 L* (7.35-7.45) ABG Total CO2 12.3 L (22-28) mmol/L ABG O2 Saturation 98.2 H (95-98) % ABG Base Excess -19.6 L (-2.0-3.0) mmol/L ABG Hemoglobin 10.3 L (11.7-17.4) g/dL ABG Carboxyhemoglobin 1.6 H (0.5-1.5) % POC ABG HHb (Measured) 1.8 (0.0-5.0) % ABG Methemoglobin 0.8 (0.0-3.0) % Leonardo Test Na VBG pH (7.32-7.43) VBG pCO2 (40-60) mmHg VBG HCO3 mmol/L VBG Total CO2 (22-28) mmol/L VBG O2 Sat (Calc) (40-65) % VBG Base Excess (0.0-2.0) mmol/L VBG Potassium (3.6-5.2) mmol/L A-a O2 Difference 416.0 mm/Hg Respiratory Index 4.2 Hgb O2 Saturation 95.8 (95.0-98.0) % Glucose (65-105) mg/dl Lactate (0.7-2.1) mmol/L Vent Mode Prvc Mechanical Rate 18 FiO2 80.0 % Tidal Volume 500 PEEP 5 Crit Value Called To Catherine barnett/rn Crit Value Called By Gunner qureshi/rt Crit Value Read Back Y Blood Gas Notified Time 505 Sodium (132-148) mmol/L Potassium (3.6-5.2) mmol/L Chloride (98-107) mmol/L Carbon Dioxide (22-30) mmol/L Anion Gap (10-20) BUN (7-17) mg/dL Creatinine (0.7-1.2) mg/dL Est GFR ( Amer) Est GFR (Non-Af Amer) POC Glucose (mg/dL) 365 H 353 H (65-110) mg/dL Random Glucose (65-105) mg/dL Calcium (8.6-10.4) mg/dl Phosphorus (2.5-4.5) mg/dL Magnesium (1.6-2.3) mg/dL Total Bilirubin (0.2-1.3) mg/dL AST (14-36) U/L ALT (9-52) U/L Alkaline Phosphatase (38-126) U/L Total Protein (6.3-8.3) g/dL Albumin (3.5-5.0) g/dL Globulin (2.2-3.9) gm/dL Albumin/Globulin Ratio (1.0-2.1) Venous Blood Potassium (3.6-5.2) mmol/L Ur L.pneumophila Ag (NEGATIVE) Blood Type Antibody Screen 06/10/18 06/10/18 06/10/18 Range/Units 02:31 02:19 00:57 WBC (4.8-10.8) K/uL RBC (3.80-5.20) Mil/uL Hgb (11.0-16.0) g/dL Hct (34.0-47.0) % MCV (81.0-99.0) fL MCH (27.0-31.0) pg MCHC (33.0-37.0) g/dL RDW (11.5-14.5) % Plt Count (130-400) K/uL MPV (7.2-11.7) fL Neut % (Auto) (50.0-75.0) % Lymph % (Auto) (20.0-40.0) % [place] % (Auto) (0.0-10.0) % Eos % (Auto) (0.0-4.0) % Baso % (Auto) (0.0-2.0) % Neut # (Auto) (1.8-7.0) K/uL Lymph # (Auto) (1.0-4.3) K/uL [place] # (Auto) (0.0-0.8) K/uL Eos # (Auto) (0.0-0.7) K/uL Baso # (Auto) (0.0-0.2) K/uL Neutrophils % (Manual) (50-75) % Band Neutrophils % (0-2) % Lymphocytes % (Manual) (20-40) % Reactive Lymphs % (0-0) % Monocytes % (Manual) (0-10) % Metamyelocytes % (0-0) % Platelet Estimate (NORMAL) Large Platelets Giant Platelets Polychromasia Hypochromasia (manual) Poikilocytosis (manual Anisocytosis (manual) Ovalocytes Leni Cells Rouleaux Smear Path Review PT 109.1 H D (9.7-12.2) SECONDS INR 9.9 APTT 73 H (21-34) SECONDS Puncture Site pCO2 (35-45) mm/Hg pO2 (80-100) mm/Hg HCO3 (21-28) mmol/L ABG pH (7.35-7.45) ABG Total CO2 (22-28) mmol/L ABG O2 Saturation (95-98) % ABG Base Excess (-2.0-3.0) mmol/L ABG Hemoglobin (11.7-17.4) g/dL ABG Carboxyhemoglobin (0.5-1.5) % POC ABG HHb (Measured) (0.0-5.0) % ABG Methemoglobin (0.0-3.0) % Leonardo Test VBG pH (7.32-7.43) VBG pCO2 (40-60) mmHg VBG HCO3 mmol/L VBG Total CO2 (22-28) mmol/L VBG O2 Sat (Calc) (40-65) % VBG Base Excess (0.0-2.0) mmol/L VBG Potassium (3.6-5.2) mmol/L A-a O2 Difference mm/Hg Respiratory Index Hgb O2 Saturation (95.0-98.0) % Glucose (65-105) mg/dl Lactate (0.7-2.1) mmol/L Vent Mode Mechanical Rate FiO2 % Tidal Volume PEEP Crit Value Called To Crit Value Called By Crit Value Read Back Blood Gas Notified Time Sodium 132 (132-148) mmol/L Potassium 5.2 (3.6-5.2) mmol/L Chloride 95 L (98-107) mmol/L Carbon Dioxide 15 L (22-30) mmol/L Anion Gap 27 H (10-20) BUN 24 H (7-17) mg/dL Creatinine 1.8 H (0.7-1.2) mg/dL Est GFR ( Amer) 34 Est GFR (Non-Af Amer) 28 POC Glucose (mg/dL) 344 H (65-110) mg/dL Random Glucose 347 H (65-105) mg/dL Calcium 7.0 L (8.6-10.4) mg/dl Phosphorus 10.3 H (2.5-4.5) mg/dL Magnesium 2.6 H (1.6-2.3) mg/dL Total Bilirubin 3.6 H (0.2-1.3) mg/dL AST 46618 H (14-36) U/L ALT 4123 H (9-52) U/L Alkaline Phosphatase 161 H D (38-126) U/L Total Protein 4.8 L (6.3-8.3) g/dL Albumin 2.3 L (3.5-5.0) g/dL Globulin 2.6 (2.2-3.9) gm/dL Albumin/Globulin Ratio 0.9 L (1.0-2.1) Venous Blood Potassium (3.6-5.2) mmol/L Ur L.pneumophila Ag (NEGATIVE) Blood Type Antibody Screen 06/10/18 06/10/18 06/10/18 Range/Units 00:57 00:45 00:02 WBC 41.3 H* (4.8-10.8) K/uL RBC 3.68 L (3.80-5.20) Mil/uL Hgb 9.6 L (11.0-16.0) g/dL Hct 31.8 L (34.0-47.0) % MCV 86.3 (81.0-99.0) fL MCH 26.0 L (27.0-31.0) pg MCHC 30.2 L (33.0-37.0) g/dL RDW 16.3 H (11.5-14.5) % Plt Count 138 (130-400) K/uL MPV 8.3 (7.2-11.7) fL Neut % (Auto) 94.9 H (50.0-75.0) % Lymph % (Auto) 2.0 L (20.0-40.0) % [place] % (Auto) 0.9 (0.0-10.0) % Eos % (Auto) 1.6 (0.0-4.0) % Baso % (Auto) 0.6 (0.0-2.0) % Neut # (Auto) 39.2 H (1.8-7.0) K/uL Lymph # (Auto) 0.8 L (1.0-4.3) K/uL [place] # (Auto) 0.4 (0.0-0.8) K/uL Eos # (Auto) 0.6 (0.0-0.7) K/uL Baso # (Auto) 0.2 (0.0-0.2) K/uL Neutrophils % (Manual) 85 H (50-75) % Band Neutrophils % 11 H* (0-2) % Lymphocytes % (Manual) 1 L (20-40) % Reactive Lymphs % (0-0) % Monocytes % (Manual) 1 (0-10) % Metamyelocytes % 2 H (0-0) % Platelet Estimate Normal (NORMAL) Large Platelets Giant Platelets Polychromasia Hypochromasia (manual) Poikilocytosis (manual Slight Anisocytosis (manual) Slight Ovalocytes [place] Cells Rouleaux Smear Path Review PT (9.7-12.2) SECONDS INR APTT (21-34) SECONDS Puncture Site pCO2 (35-45) mm/Hg pO2 (80-100) mm/Hg HCO3 (21-28) mmol/L ABG pH (7.35-7.45) ABG Total CO2 (22-28) mmol/L ABG O2 Saturation (95-98) % ABG Base Excess (-2.0-3.0) mmol/L ABG Hemoglobin (11.7-17.4) g/dL ABG Carboxyhemoglobin (0.5-1.5) % POC ABG HHb (Measured) (0.0-5.0) % ABG Methemoglobin (0.0-3.0) % Leonardo Test VBG pH (7.32-7.43) VBG pCO2 (40-60) mmHg VBG HCO3 mmol/L VBG Total CO2 (22-28) mmol/L VBG O2 Sat (Calc) (40-65) % VBG Base Excess (0.0-2.0) mmol/L VBG Potassium (3.6-5.2) mmol/L A-a O2 Difference mm/Hg Respiratory Index Hgb O2 Saturation (95.0-98.0) % Glucose (65-105) mg/dl Lactate (0.7-2.1) mmol/L Vent Mode Mechanical Rate FiO2 % Tidal Volume PEEP Crit Value Called To Crit Value Called By Crit Value Read Back Blood Gas Notified Time Sodium (132-148) mmol/L Potassium (3.6-5.2) mmol/L Chloride (98-107) mmol/L Carbon Dioxide (22-30) mmol/L Anion Gap (10-20) BUN (7-17) mg/dL Creatinine (0.7-1.2) mg/dL Est GFR ( Amer) Est GFR (Non-Af Amer) POC Glucose (mg/dL) 353 H 317 H (65-110) mg/dL Random Glucose (65-105) mg/dL Calcium (8.6-10.4) mg/dl Phosphorus (2.5-4.5) mg/dL Magnesium (1.6-2.3) mg/dL Total Bilirubin (0.2-1.3) mg/dL AST (14-36) U/L ALT (9-52) U/L Alkaline Phosphatase (38-126) U/L Total Protein (6.3-8.3) g/dL Albumin (3.5-5.0) g/dL Globulin (2.2-3.9) gm/dL Albumin/Globulin Ratio (1.0-2.1) Venous Blood Potassium (3.6-5.2) mmol/L Ur L.pneumophila Ag (NEGATIVE) Blood Type Antibody Screen 06/09/18 06/09/18 06/09/18 Range/Units 22:48 21:57 20:49 WBC (4.8-10.8) K/uL RBC (3.80-5.20) Mil/uL Hgb (11.0-16.0) g/dL Hct (34.0-47.0) % MCV (81.0-99.0) fL MCH (27.0-31.0) pg MCHC (33.0-37.0) g/dL RDW (11.5-14.5) % Plt Count (130-400) K/uL MPV (7.2-11.7) fL Neut % (Auto) (50.0-75.0) % Lymph % (Auto) (20.0-40.0) % [place] % (Auto) (0.0-10.0) % Eos % (Auto) (0.0-4.0) % Baso % (Auto) (0.0-2.0) % Neut # (Auto) (1.8-7.0) K/uL Lymph # (Auto) (1.0-4.3) K/uL [place] # (Auto) (0.0-0.8) K/uL Eos # (Auto) (0.0-0.7) K/uL Baso # (Auto) (0.0-0.2) K/uL Neutrophils % (Manual) (50-75) % Band Neutrophils % (0-2) % Lymphocytes % (Manual) (20-40) % Reactive Lymphs % (0-0) % Monocytes % (Manual) (0-10) % Metamyelocytes % (0-0) % Platelet Estimate (NORMAL) Large Platelets Giant Platelets Polychromasia Hypochromasia (manual) Poikilocytosis (manual Anisocytosis (manual) Ovalocytes Leni Cells Rouleaux Smear Path Review PT (9.7-12.2) SECONDS INR APTT (21-34) SECONDS Puncture Site pCO2 (35-45) mm/Hg pO2 (80-100) mm/Hg HCO3 (21-28) mmol/L ABG pH (7.35-7.45) ABG Total CO2 (22-28) mmol/L ABG O2 Saturation (95-98) % ABG Base Excess (-2.0-3.0) mmol/L ABG Hemoglobin (11.7-17.4) g/dL ABG Carboxyhemoglobin (0.5-1.5) % POC ABG HHb (Measured) (0.0-5.0) % ABG Methemoglobin (0.0-3.0) % Leonardo Test VBG pH (7.32-7.43) VBG pCO2 (40-60) mmHg VBG HCO3 mmol/L VBG Total CO2 (22-28) mmol/L VBG O2 Sat (Calc) (40-65) % VBG Base Excess (0.0-2.0) mmol/L VBG Potassium (3.6-5.2) mmol/L A-a O2 Difference mm/Hg Respiratory Index Hgb O2 Saturation (95.0-98.0) % Glucose (65-105) mg/dl Lactate (0.7-2.1) mmol/L Vent Mode Mechanical Rate FiO2 % Tidal Volume PEEP Crit Value Called To Crit Value Called By Crit Value Read Back Blood Gas Notified Time Sodium (132-148) mmol/L Potassium (3.6-5.2) mmol/L Chloride (98-107) mmol/L Carbon Dioxide (22-30) mmol/L Anion Gap (10-20) BUN (7-17) mg/dL Creatinine (0.7-1.2) mg/dL Est GFR ( Amer) Est GFR (Non-Af Amer) POC Glucose (mg/dL) 314 H 301 H 269 H (65-110) mg/dL Random Glucose (65-105) mg/dL Calcium (8.6-10.4) mg/dl Phosphorus (2.5-4.5) mg/dL Magnesium (1.6-2.3) mg/dL Total Bilirubin (0.2-1.3) mg/dL AST (14-36) U/L ALT (9-52) U/L Alkaline Phosphatase (38-126) U/L Total Protein (6.3-8.3) g/dL Albumin (3.5-5.0) g/dL Globulin (2.2-3.9) gm/dL Albumin/Globulin Ratio (1.0-2.1) Venous Blood Potassium (3.6-5.2) mmol/L Ur L.pneumophila Ag (NEGATIVE) Blood Type Antibody Screen 06/09/18 06/09/18 06/09/18 Range/Units 20:02 19:05 18:17 WBC (4.8-10.8) K/uL RBC (3.80-5.20) Mil/uL Hgb (11.0-16.0) g/dL Hct (34.0-47.0) % MCV (81.0-99.0) fL MCH (27.0-31.0) pg MCHC (33.0-37.0) g/dL RDW (11.5-14.5) % Plt Count (130-400) K/uL MPV (7.2-11.7) fL Neut % (Auto) (50.0-75.0) % Lymph % (Auto) (20.0-40.0) % [place] % (Auto) (0.0-10.0) % Eos % (Auto) (0.0-4.0) % Baso % (Auto) (0.0-2.0) % Neut # (Auto) (1.8-7.0) K/uL Lymph # (Auto) (1.0-4.3) K/uL [place] # (Auto) (0.0-0.8) K/uL Eos # (Auto) (0.0-0.7) K/uL Baso # (Auto) (0.0-0.2) K/uL Neutrophils % (Manual) (50-75) % Band Neutrophils % (0-2) % Lymphocytes % (Manual) (20-40) % Reactive Lymphs % (0-0) % Monocytes % (Manual) (0-10) % Metamyelocytes % (0-0) % Platelet Estimate (NORMAL) Large Platelets Giant Platelets Polychromasia Hypochromasia (manual) Poikilocytosis (manual Anisocytosis (manual) Ovalocytes Leni Cells Rouleaux Smear Path Review PT 115.7 H D (9.7-12.2) SECONDS INR 10.5 D APTT (21-34) SECONDS Puncture Site pCO2 (35-45) mm/Hg pO2 (80-100) mm/Hg HCO3 (21-28) mmol/L ABG pH (7.35-7.45) ABG Total CO2 (22-28) mmol/L ABG O2 Saturation (95-98) % ABG Base Excess (-2.0-3.0) mmol/L ABG Hemoglobin (11.7-17.4) g/dL ABG Carboxyhemoglobin (0.5-1.5) % POC ABG HHb (Measured) (0.0-5.0) % ABG Methemoglobin (0.0-3.0) % Leonardo Test VBG pH (7.32-7.43) VBG pCO2 (40-60) mmHg VBG HCO3 mmol/L VBG Total CO2 (22-28) mmol/L VBG O2 Sat (Calc) (40-65) % VBG Base Excess (0.0-2.0) mmol/L VBG Potassium (3.6-5.2) mmol/L A-a O2 Difference mm/Hg Respiratory Index Hgb O2 Saturation (95.0-98.0) % Glucose (65-105) mg/dl Lactate (0.7-2.1) mmol/L Vent Mode Mechanical Rate FiO2 % Tidal Volume PEEP Crit Value Called To Crit Value Called By Crit Value Read Back Blood Gas Notified Time Sodium (132-148) mmol/L Potassium (3.6-5.2) mmol/L Chloride (98-107) mmol/L Carbon Dioxide (22-30) mmol/L Anion Gap (10-20) BUN (7-17) mg/dL Creatinine (0.7-1.2) mg/dL Est GFR ( Amer) Est GFR (Non-Af Amer) POC Glucose (mg/dL) 278 H 274 H (65-110) mg/dL Random Glucose (65-105) mg/dL Calcium (8.6-10.4) mg/dl Phosphorus (2.5-4.5) mg/dL Magnesium (1.6-2.3) mg/dL Total Bilirubin (0.2-1.3) mg/dL AST (14-36) U/L ALT (9-52) U/L Alkaline Phosphatase (38-126) U/L Total Protein (6.3-8.3) g/dL Albumin (3.5-5.0) g/dL Globulin (2.2-3.9) gm/dL Albumin/Globulin Ratio (1.0-2.1) Venous Blood Potassium (3.6-5.2) mmol/L Ur L.pneumophila Ag (NEGATIVE) Blood Type Antibody Screen 06/09/18 Range/Units 18:17 WBC (4.8-10.8) K/uL RBC (3.80-5.20) Mil/uL Hgb (11.0-16.0) g/dL Hct (34.0-47.0) % MCV (81.0-99.0) fL MCH (27.0-31.0) pg MCHC (33.0-37.0) g/dL RDW (11.5-14.5) % Plt Count (130-400) K/uL MPV (7.2-11.7) fL Neut % (Auto) (50.0-75.0) % Lymph % (Auto) (20.0-40.0) % [place] % (Auto) (0.0-10.0) % Eos % (Auto) (0.0-4.0) % Baso % (Auto) (0.0-2.0) % Neut # (Auto) (1.8-7.0) K/uL Lymph # (Auto) (1.0-4.3) K/uL [place] # (Auto) (0.0-0.8) K/uL Eos # (Auto) (0.0-0.7) K/uL Baso # (Auto) (0.0-0.2) K/uL Neutrophils % (Manual) 84 H (50-75) % Band Neutrophils % 9 H (0-2) % Lymphocytes % (Manual) 2 L (20-40) % Reactive Lymphs % 1 H (0-0) % Monocytes % (Manual) 3 (0-10) % Metamyelocytes % 1 H (0-0) % Platelet Estimate Normal (NORMAL) Large Platelets Giant Platelets Polychromasia Slight Hypochromasia (manual) Poikilocytosis (manual Anisocytosis (manual) Slight Ovalocytes [place] Cells Rouleaux Slight Smear Path Review PT (9.7-12.2) SECONDS INR APTT (21-34) SECONDS Puncture Site pCO2 (35-45) mm/Hg pO2 (80-100) mm/Hg HCO3 (21-28) mmol/L ABG pH (7.35-7.45) ABG Total CO2 (22-28) mmol/L ABG O2 Saturation (95-98) % ABG Base Excess (-2.0-3.0) mmol/L ABG Hemoglobin (11.7-17.4) g/dL ABG Carboxyhemoglobin (0.5-1.5) % POC ABG HHb (Measured) (0.0-5.0) % ABG Methemoglobin (0.0-3.0) % Leonardo Test VBG pH (7.32-7.43) VBG pCO2 (40-60) mmHg VBG HCO3 mmol/L VBG Total CO2 (22-28) mmol/L VBG O2 Sat (Calc) (40-65) % VBG Base Excess (0.0-2.0) mmol/L VBG Potassium (3.6-5.2) mmol/L A-a O2 Difference mm/Hg Respiratory Index Hgb O2 Saturation (95.0-98.0) % Glucose (65-105) mg/dl Lactate (0.7-2.1) mmol/L Vent Mode Mechanical Rate FiO2 % Tidal Volume PEEP Crit Value Called To Crit Value Called By Crit Value Read Back Blood Gas Notified Time Sodium (132-148) mmol/L Potassium (3.6-5.2) mmol/L Chloride (98-107) mmol/L Carbon Dioxide (22-30) mmol/L Anion Gap (10-20) BUN (7-17) mg/dL Creatinine (0.7-1.2) mg/dL Est GFR ( Amer) Est GFR (Non-Af Amer) POC Glucose (mg/dL) (65-110) mg/dL Random Glucose (65-105) mg/dL Calcium (8.6-10.4) mg/dl Phosphorus (2.5-4.5) mg/dL Magnesium (1.6-2.3) mg/dL Total Bilirubin (0.2-1.3) mg/dL AST (14-36) U/L ALT (9-52) U/L Alkaline Phosphatase (38-126) U/L Total Protein (6.3-8.3) g/dL Albumin (3.5-5.0) g/dL Globulin (2.2-3.9) gm/dL Albumin/Globulin Ratio (1.0-2.1) Venous Blood Potassium (3.6-5.2) mmol/L Ur L.pneumophila Ag (NEGATIVE) Blood Type Antibody Screen Laboratory Results - last 24 hr 06/09/18 06/09/18 06/09/18 18:17 18:17 19:05 WBC RBC Hgb Hct MCV MCH MCHC RDW Plt Count MPV Neut % (Auto) Lymph % (Auto) [place] % (Auto) Eos % (Auto) Baso % (Auto) Neut # (Auto) Lymph # (Auto) [place] # (Auto) Eos # (Auto) Baso # (Auto) Neutrophils % (Manual) 84 H Band Neutrophils % 9 H Lymphocytes % (Manual) 2 L Reactive Lymphs % 1 H Monocytes % (Manual) 3 Metamyelocytes % 1 H Platelet Estimate Normal Large Platelets Giant Platelets Polychromasia Slight Hypochromasia (manual) Poikilocytosis (manual Anisocytosis (manual) Slight Ovalocytes [place] Cells Rouleaux Slight Smear Path Review PT 115.7 H D INR 10.5 D APTT Puncture Site pCO2 pO2 HCO3 ABG pH ABG Total CO2 ABG O2 Saturation ABG Base Excess ABG Hemoglobin ABG Carboxyhemoglobin POC ABG HHb (Measured) ABG Methemoglobin Leonardo Test VBG pH VBG pCO2 VBG HCO3 VBG Total CO2 VBG O2 Sat (Calc) VBG Base Excess VBG Potassium A-a O2 Difference Respiratory Index Hgb O2 Saturation Glucose Lactate Vent Mode Mechanical Rate FiO2 Tidal Volume PEEP Crit Value Called To Crit Value Called By Crit Value Read Back Blood Gas Notified Time Sodium Potassium Chloride Carbon Dioxide Anion Gap BUN Creatinine Est GFR ( Amer) Est GFR (Non-Af Amer) POC Glucose (mg/dL) 274 H Random Glucose Calcium Phosphorus Magnesium Total Bilirubin AST ALT Alkaline Phosphatase Total Protein Albumin Globulin Albumin/Globulin Ratio Venous Blood Potassium Ur L.pneumophila Ag Blood Type Antibody Screen 06/09/18 06/09/18 06/09/18 20:02 20:49 21:57 WBC RBC Hgb Hct MCV MCH MCHC RDW Plt Count MPV Neut % (Auto) Lymph % (Auto) [place] % (Auto) Eos % (Auto) Baso % (Auto) Neut # (Auto) Lymph # (Auto) [place] # (Auto) Eos # (Auto) Baso # (Auto) Neutrophils % (Manual) Band Neutrophils % Lymphocytes % (Manual) Reactive Lymphs % Monocytes % (Manual) Metamyelocytes % Platelet Estimate Large Platelets Giant Platelets Polychromasia Hypochromasia (manual) Poikilocytosis (manual Anisocytosis (manual) Ovalocytes Leni Cells Rouleaux Smear Path Review PT INR APTT Puncture Site pCO2 pO2 HCO3 ABG pH ABG Total CO2 ABG O2 Saturation ABG Base Excess ABG Hemoglobin ABG Carboxyhemoglobin POC ABG HHb (Measured) ABG Methemoglobin Leonardo Test VBG pH VBG pCO2 VBG HCO3 VBG Total CO2 VBG O2 Sat (Calc) VBG Base Excess VBG Potassium A-a O2 Difference Respiratory Index Hgb O2 Saturation Glucose Lactate Vent Mode Mechanical Rate FiO2 Tidal Volume PEEP Crit Value Called To Crit Value Called By Crit Value Read Back Blood Gas Notified Time Sodium Potassium Chloride Carbon Dioxide Anion Gap BUN Creatinine Est GFR ( Amer) Est GFR (Non-Af Amer) POC Glucose (mg/dL) 278 H 269 H 301 H Random Glucose Calcium Phosphorus Magnesium Total Bilirubin AST ALT Alkaline Phosphatase Total Protein Albumin Globulin Albumin/Globulin Ratio Venous Blood Potassium Ur L.pneumophila Ag Blood Type Antibody Screen 06/09/18 06/10/18 06/10/18 22:48 00:02 00:45 WBC RBC Hgb Hct MCV MCH MCHC RDW Plt Count MPV Neut % (Auto) Lymph % (Auto) [place] % (Auto) Eos % (Auto) Baso % (Auto) Neut # (Auto) Lymph # (Auto) [place] # (Auto) Eos # (Auto) Baso # (Auto) Neutrophils % (Manual) Band Neutrophils % Lymphocytes % (Manual) Reactive Lymphs % Monocytes % (Manual) Metamyelocytes % Platelet Estimate Large Platelets Giant Platelets Polychromasia Hypochromasia (manual) Poikilocytosis (manual Anisocytosis (manual) Ovalocytes Leni Cells Rouleaux Smear Path Review PT INR APTT Puncture Site pCO2 pO2 HCO3 ABG pH ABG Total CO2 ABG O2 Saturation ABG Base Excess ABG Hemoglobin ABG Carboxyhemoglobin POC ABG HHb (Measured) ABG Methemoglobin Leonardo Test VBG pH VBG pCO2 VBG HCO3 VBG Total CO2 VBG O2 Sat (Calc) VBG Base Excess VBG Potassium A-a O2 Difference Respiratory Index Hgb O2 Saturation Glucose Lactate Vent Mode Mechanical Rate FiO2 Tidal Volume PEEP Crit Value Called To Crit Value Called By Crit Value Read Back Blood Gas Notified Time Sodium Potassium Chloride Carbon Dioxide Anion Gap BUN Creatinine Est GFR ( Amer) Est GFR (Non-Af Amer) POC Glucose (mg/dL) 314 H 317 H 353 H Random Glucose Calcium Phosphorus Magnesium Total Bilirubin AST ALT Alkaline Phosphatase Total Protein Albumin Globulin Albumin/Globulin Ratio Venous Blood Potassium Ur L.pneumophila Ag Blood Type Antibody Screen 06/10/18 06/10/18 06/10/18 00:57 00:57 02:19 WBC 41.3 H* RBC 3.68 L Hgb 9.6 L Hct 31.8 L MCV 86.3 MCH 26.0 L MCHC 30.2 L RDW 16.3 H Plt Count 138 MPV 8.3 Neut % (Auto) 94.9 H Lymph % (Auto) 2.0 L [place] % (Auto) 0.9 Eos % (Auto) 1.6 Baso % (Auto) 0.6 Neut # (Auto) 39.2 H Lymph # (Auto) 0.8 L [place] # (Auto) 0.4 Eos # (Auto) 0.6 Baso # (Auto) 0.2 Neutrophils % (Manual) 85 H Band Neutrophils % 11 H* Lymphocytes % (Manual) 1 L Reactive Lymphs % Monocytes % (Manual) 1 Metamyelocytes % 2 H Platelet Estimate Normal Large Platelets Giant Platelets Polychromasia Hypochromasia (manual) Poikilocytosis (manual Slight Anisocytosis (manual) Slight Ovalocytes [place] Cells Rouleaux Smear Path Review PT 109.1 H D INR 9.9 APTT 73 H Puncture Site pCO2 pO2 HCO3 ABG pH ABG Total CO2 ABG O2 Saturation ABG Base Excess ABG Hemoglobin ABG Carboxyhemoglobin POC ABG HHb (Measured) ABG Methemoglobin Leonardo Test VBG pH VBG pCO2 VBG HCO3 VBG Total CO2 VBG O2 Sat (Calc) VBG Base Excess VBG Potassium A-a O2 Difference Respiratory Index Hgb O2 Saturation Glucose Lactate Vent Mode Mechanical Rate FiO2 Tidal Volume PEEP Crit Value Called To Crit Value Called By Crit Value Read Back Blood Gas Notified Time Sodium Potassium Chloride Carbon Dioxide Anion Gap BUN Creatinine Est GFR ( Amer) Est GFR (Non-Af Amer) POC Glucose (mg/dL) 344 H Random Glucose Calcium Phosphorus Magnesium Total Bilirubin AST ALT Alkaline Phosphatase Total Protein Albumin Globulin Albumin/Globulin Ratio Venous Blood Potassium Ur L.pneumophila Ag Blood Type Antibody Screen 06/10/18 06/10/18 06/10/18 02:31 03:19 04:17 WBC RBC Hgb Hct MCV MCH MCHC RDW Plt Count MPV Neut % (Auto) Lymph % (Auto) [place] % (Auto) Eos % (Auto) Baso % (Auto) Neut # (Auto) Lymph # (Auto) [place] # (Auto) Eos # (Auto) Baso # (Auto) Neutrophils % (Manual) Band Neutrophils % Lymphocytes % (Manual) Reactive Lymphs % Monocytes % (Manual) Metamyelocytes % Platelet Estimate Large Platelets Giant Platelets Polychromasia Hypochromasia (manual) Poikilocytosis (manual Anisocytosis (manual) Ovalocytes [place] Cells Rouleaux Smear Path Review PT INR APTT Puncture Site pCO2 pO2 HCO3 ABG pH ABG Total CO2 ABG O2 Saturation ABG Base Excess ABG Hemoglobin ABG Carboxyhemoglobin POC ABG HHb (Measured) ABG Methemoglobin Leonardo Test VBG pH VBG pCO2 VBG HCO3 VBG Total CO2 VBG O2 Sat (Calc) VBG Base Excess VBG Potassium A-a O2 Difference Respiratory Index Hgb O2 Saturation Glucose Lactate Vent Mode Mechanical Rate FiO2 Tidal Volume PEEP Crit Value Called To Crit Value Called By Crit Value Read Back Blood Gas Notified Time Sodium 132 Potassium 5.2 Chloride 95 L Carbon Dioxide 15 L Anion Gap 27 H BUN 24 H Creatinine 1.8 H Est GFR ( Amer) 34 Est GFR (Non-Af Amer) 28 POC Glucose (mg/dL) 353 H 365 H Random Glucose 347 H Calcium 7.0 L Phosphorus 10.3 H Magnesium 2.6 H Total Bilirubin 3.6 H AST 82182 H ALT 4123 H Alkaline Phosphatase 161 H D Total Protein 4.8 L Albumin 2.3 L Globulin 2.6 Albumin/Globulin Ratio 0.9 L Venous Blood Potassium Ur L.pneumophila Ag Blood Type Antibody Screen 06/10/18 06/10/18 06/10/18 04:45 05:00 06:17 WBC RBC Hgb Hct MCV MCH MCHC RDW Plt Count MPV Neut % (Auto) Lymph % (Auto) [place] % (Auto) Eos % (Auto) Baso % (Auto) Neut # (Auto) Lymph # (Auto) [place] # (Auto) Eos # (Auto) Baso # (Auto) Neutrophils % (Manual) Band Neutrophils % Lymphocytes % (Manual) Reactive Lymphs % Monocytes % (Manual) Metamyelocytes % Platelet Estimate Large Platelets Giant Platelets Polychromasia Hypochromasia (manual) Poikilocytosis (manual Anisocytosis (manual) Ovalocytes Leni Cells Rouleaux Smear Path Review PT INR APTT Puncture Site Rb pCO2 44 pO2 99 HCO3 9.6 L* ABG pH 7.00 L* ABG Total CO2 12.3 L ABG O2 Saturation 98.2 H ABG Base Excess -19.6 L ABG Hemoglobin 10.3 L ABG Carboxyhemoglobin 1.6 H POC ABG HHb (Measured) 1.8 ABG Methemoglobin 0.8 Leonardo Test Na VBG pH VBG pCO2 VBG HCO3 VBG Total CO2 VBG O2 Sat (Calc) VBG Base Excess VBG Potassium A-a O2 Difference 416.0 Respiratory Index 4.2 Hgb O2 Saturation 95.8 Glucose Lactate Vent Mode Prvc Mechanical Rate 18 FiO2 80.0 Tidal Volume 500 PEEP 5 Crit Value Called To Catherine barnett/rn Crit Value Called By Gunner qureshi/rt Crit Value Read Back Y Blood Gas Notified Time 505 Sodium Potassium Chloride Carbon Dioxide Anion Gap BUN Creatinine Est GFR ( Amer) Est GFR (Non-Af Amer) POC Glucose (mg/dL) 359 H 354 H Random Glucose Calcium Phosphorus Magnesium Total Bilirubin AST ALT Alkaline Phosphatase Total Protein Albumin Globulin Albumin/Globulin Ratio Venous Blood Potassium Ur L.pneumophila Ag Blood Type Antibody Screen 06/10/18 06/10/18 06/10/18 07:26 07:39 07:39 WBC 31.5 H RBC 2.90 L Hgb 7.5 L D Hct 25.2 L MCV 86.7 MCH 25.8 L MCHC 29.7 L RDW 15.5 H Plt Count 103 L D MPV 7.5 Neut % (Auto) 92.6 H Lymph % (Auto) 3.3 L [place] % (Auto) 2.7 Eos % (Auto) 1.2 Baso % (Auto) 0.2 Neut # (Auto) 29.2 H Lymph # (Auto) 1.1 [place] # (Auto) 0.8 Eos # (Auto) 0.4 Baso # (Auto) 0.1 Neutrophils % (Manual) 74 Band Neutrophils % 20 H* Lymphocytes % (Manual) 4 L Reactive Lymphs % Monocytes % (Manual) 2 Metamyelocytes % Platelet Estimate Slightly decreased L Large Platelets Present Giant Platelets Present Polychromasia Hypochromasia (manual) Slight Poikilocytosis (manual Slight Anisocytosis (manual) Slight Ovalocytes Slight [place] Cells Slight Rouleaux Smear Path Review PT > 320.0 H D INR > 10.0 APTT 71 H Puncture Site pCO2 pO2 HCO3 ABG pH ABG Total CO2 ABG O2 Saturation ABG Base Excess ABG Hemoglobin ABG Carboxyhemoglobin POC ABG HHb (Measured) ABG Methemoglobin Leonardo Test VBG pH VBG pCO2 VBG HCO3 VBG Total CO2 VBG O2 Sat (Calc) VBG Base Excess VBG Potassium A-a O2 Difference Respiratory Index Hgb O2 Saturation Glucose Lactate Vent Mode Mechanical Rate FiO2 Tidal Volume PEEP Crit Value Called To Crit Value Called By Crit Value Read Back Blood Gas Notified Time Sodium Potassium Chloride Carbon Dioxide Anion Gap BUN Creatinine Est GFR ( Amer) Est GFR (Non-Af Amer) POC Glucose (mg/dL) 377 H Random Glucose Calcium Phosphorus Magnesium Total Bilirubin AST ALT Alkaline Phosphatase Total Protein Albumin Globulin Albumin/Globulin Ratio Venous Blood Potassium Ur L.pneumophila Ag Blood Type Antibody Screen 06/10/18 06/10/18 06/10/18 07:39 08:02 08:47 WBC RBC Hgb Hct MCV MCH MCHC RDW Plt Count MPV Neut % (Auto) Lymph % (Auto) [place] % (Auto) Eos % (Auto) Baso % (Auto) Neut # (Auto) Lymph # (Auto) [place] # (Auto) Eos # (Auto) Baso # (Auto) Neutrophils % (Manual) Band Neutrophils % Lymphocytes % (Manual) Reactive Lymphs % Monocytes % (Manual) Metamyelocytes % Platelet Estimate Large Platelets Giant Platelets Polychromasia Hypochromasia (manual) Poikilocytosis (manual Anisocytosis (manual) Ovalocytes [place] Cells Rouleaux Smear Path Review PT INR APTT Puncture Site pCO2 pO2 HCO3 ABG pH ABG Total CO2 ABG O2 Saturation ABG Base Excess ABG Hemoglobin ABG Carboxyhemoglobin POC ABG HHb (Measured) ABG Methemoglobin Leonardo Test VBG pH VBG pCO2 VBG HCO3 VBG Total CO2 VBG O2 Sat (Calc) VBG Base Excess VBG Potassium A-a O2 Difference Respiratory Index Hgb O2 Saturation Glucose Lactate Vent Mode Mechanical Rate FiO2 Tidal Volume PEEP Crit Value Called To Crit Value Called By Crit Value Read Back Blood Gas Notified Time Sodium 132 Potassium 5.6 H Chloride 93 L Carbon Dioxide 16 L Anion Gap 29 H BUN 25 H Creatinine 1.9 H Est GFR ( Amer) 32 Est GFR (Non-Af Amer) 26 POC Glucose (mg/dL) 330 H Random Glucose 303 H Calcium 6.7 L Phosphorus Magnesium 2.5 H Total Bilirubin AST ALT Alkaline Phosphatase Total Protein Albumin Globulin Albumin/Globulin Ratio Venous Blood Potassium Ur L.pneumophila Ag Blood Type B POSITIVE Antibody Screen Negative 06/10/18 06/10/18 06/10/18 09:18 10:11 10:48 WBC RBC Hgb Hct MCV MCH MCHC RDW Plt Count MPV Neut % (Auto) Lymph % (Auto) [place] % (Auto) Eos % (Auto) Baso % (Auto) Neut # (Auto) Lymph # (Auto) [place] # (Auto) Eos # (Auto) Baso # (Auto) Neutrophils % (Manual) Band Neutrophils % Lymphocytes % (Manual) Reactive Lymphs % Monocytes % (Manual) Metamyelocytes % Platelet Estimate Large Platelets Giant Platelets Polychromasia Hypochromasia (manual) Poikilocytosis (manual Anisocytosis (manual) Ovalocytes Leni Cells Rouleaux Smear Path Review PT INR APTT Puncture Site pCO2 pO2 18 L HCO3 ABG pH ABG Total CO2 ABG O2 Saturation ABG Base Excess ABG Hemoglobin ABG Carboxyhemoglobin POC ABG HHb (Measured) ABG Methemoglobin Leonardo Test VBG pH 6.98 L* VBG pCO2 61 H VBG HCO3 8.8 VBG Total CO2 16.3 L VBG O2 Sat (Calc) 40.8 VBG Base Excess -17.7 L VBG Potassium 3.3 L A-a O2 Difference Respiratory Index Hgb O2 Saturation Glucose 625 H* D Lactate 8.5 H* Vent Mode Mechanical Rate FiO2 100.0 Tidal Volume PEEP 5 Crit Value Called To Dr streeter Crit Value Called By Lior patten freelance art director Crit Value Read Back Y Blood Gas Notified Time 1050 Sodium < 100.0 L* Potassium Chloride 46.0 L Carbon Dioxide Anion Gap BUN Creatinine Est GFR ( Amer) Est GFR (Non-Af Amer) POC Glucose (mg/dL) 321 H 298 H Random Glucose Calcium Phosphorus Magnesium Total Bilirubin AST ALT Alkaline Phosphatase Total Protein Albumin Globulin Albumin/Globulin Ratio Venous Blood Potassium 3.3 L Ur L.pneumophila Ag Blood Type Antibody Screen 06/10/18 12:25 WBC RBC Hgb Hct MCV MCH MCHC RDW Plt Count MPV Neut % (Auto) Lymph % (Auto) [place] % (Auto) Eos % (Auto) Baso % (Auto) Neut # (Auto) Lymph # (Auto) [place] # (Auto) Eos # (Auto) Baso # (Auto) Neutrophils % (Manual) Band Neutrophils % Lymphocytes % (Manual) Reactive Lymphs % Monocytes % (Manual) Metamyelocytes % Platelet Estimate Large Platelets Giant Platelets Polychromasia Hypochromasia (manual) Poikilocytosis (manual Anisocytosis (manual) Ovalocytes Leni Cells Rouleaux Smear Path Review PT INR APTT Puncture Site pCO2 pO2 HCO3 ABG pH ABG Total CO2 ABG O2 Saturation ABG Base Excess ABG Hemoglobin ABG Carboxyhemoglobin POC ABG HHb (Measured) ABG Methemoglobin Leonardo Test VBG pH VBG pCO2 VBG HCO3 VBG Total CO2 VBG O2 Sat (Calc) VBG Base Excess VBG Potassium A-a O2 Difference Respiratory Index Hgb O2 Saturation Glucose Lactate Vent Mode Mechanical Rate FiO2 Tidal Volume PEEP Crit Value Called To Crit Value Called By Crit Value Read Back Blood Gas Notified Time Sodium Potassium Chloride Carbon Dioxide Anion Gap BUN Creatinine Est GFR ( Amer) Est GFR (Non-Af Amer) POC Glucose (mg/dL) Random Glucose Calcium Phosphorus Magnesium Total Bilirubin AST ALT Alkaline Phosphatase Total Protein Albumin Globulin Albumin/Globulin Ratio Venous Blood Potassium Ur L.pneumophila Ag Negative Blood Type Antibody Screen Critical Care Progress Note - Nutrition Nutrition: Nutrition Category Date Time Status NPO Diet [DIET] Diets 06/09/18 Breakfast Active Attending/Attestation - Attestation I have personally seen and examined this patient.: Yes I have fully participated in the care of the patient.: Yes I have reviewed all pertinent clinical information: Yes Notes (Text): 06/10/18 18:48 patient seen and examined in the intensive care unit. Previous events noted Case discussed with family at length Family requesting DNR/DNI and no aggressive intervention Patient pronounced deadat 4:18 PM
[2018-06-10 16:55] VITALS: RESP 0
--- NOTE | 2018-06-10 19:05 | CON ---
DATE: 06/10/2018 ATTENDING PHYSICIAN: Eduardo Paige MD LOCATION: The patient's room number ICU bed 11. REASON FOR CONSULTATION: Bilateral global cerebral dysfunction. The patient was brought in following cardiopulmonary arrest at home by the EMS. The patient did have CT of the head and the patient was on hypothermia protocol because of cardiopulmonary arrest. HISTORY OF PRESENT ILLNESS: Ms. Randee Raman is a 72-year-old right-handed morbidly obese female presenting with about three days history of shortness of breath. On her way of getting out of the bed to the commode, she collapsed on the floor. There is no definite how long she was on the floor. EMS arrived and she was resuscitated and she was brought into [facility] for further management. Considering the history and abnormal presentation and examination, the patient did have a CT of the head to rule out intracerebral pathology. The patient was kept on hypothermia protocol following this. Her CT of the head was ruled out bleed. The patient was intubated and transferred to the ICU. SIGNIFICANT PAST MEDICAL HISTORY: Coronary artery disease, hypertension, COPD, oxygen supplements. ALLERGIES: NO KNOWN ALLERGIES. PERSONAL HISTORY Not available. REVIEW OF SYSTEMS: A 12-point system being reviewed. From neuro, cardiopulmonary arrest with anoxia. PHYSICAL EXAMINATION: VITAL SIGNS: On multiple pressors blood pressure is 131/85, pulse rate 70, respiration on vent with 18 per minute, temperature 90.7. NEUROLOGICAL: The patient is not on sedation. Deeply comatose. Eyes are open. Pupil nonreactive to light. No corneal reflex. No oculocephalic reflex. On manifesting the endotracheal tube, no gag is noted. Quadriplegic. No response to painful stimuli. Both legs are externally rotated. Plantars are mute on both sides. Areflexic. Coordination: Gait is deferred at this time. CONCLUSION: Ms. Randee Raman as per neurological examination presenting with global cerebral dysfunction with patchy brainstem dysfunction including blinking and some spontaneous respiration. 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 It seems to be the patient did have a reversible central nervous system insult. Electroencephalogram been reviewed by me showed theta activities with blink artifacts and burst suppression noted. CT of the head reviewed, no acute pathology is noted. RECOMMENDATIONS: 1. Continue the supportive measures. 2. Repeat CT of the head and electroencephalogram to rule out any abnormal findings in order to treat her. 3. Overall prognosis is very poor. 4. The patient condition has been discussed with the nurses at the bedside. Vic Encinas MD MTDTracey
--- NOTE | 2018-06-10 21:11 | CP.PCM.PN ---
Subjective - Date & Time of Evaluation Date of Evaluation: 06/10/18 Time of Evaluation: 12:05 - Subjective Subjective: Patient examined this AM at bedside under hypothermia protocol. 2 units of PRBCs transfused this morning due to low hemoglobin Physical Examination - Physical Exam Head: Positive for: Atraumatic, Normocephalic Pupils: Positive for: Non-Reactive Conjunctiva: Positive for: Normal Mouth: Positive for: Dry Respiratory/Chest: Positive for: Other (Apneic ) Cardiovascular: Positive for: Other (Asystole ) Upper Extremity: Positive for: Normal Inspection Lower Extremity: Positive for: Normal Inspection Skin: Positive for: Dry, Normal Color Objective - Vital Signs/Intake and Output Vital Signs (last 24 hours): Temp Pulse Resp BP Pulse Ox 92.6 F L 82 0 L 42/20 L 90 L 06/10/18 14:45 06/10/18 15:45 06/10/18 16:30 06/10/18 15:25 06/10/18 14:19 Intake and Output: 06/10/18 06/11/18 18:59 06:59 Intake Total 4991.4 Output Total 10 Balance 4981.4 - Labs Labs: 06/10/18 07:39 06/10/18 07:39 PT > 320.0 SECONDS (9.7-12.2) H D 06/10/18 07:39 INR > 10.0 06/10/18 07:39 APTT 71 SECONDS (21-34) H 06/10/18 07:39 Assessment and Plan - Assessment and Plan (Free Text) Assessment: Patient is a 72 year old female with past medical history of COPD on home oxygen, hypertension, CAD, hyperlipidemia, epilepsy, osteoporosis presenting to ED with chief complaint of cardiac arrest, s/p ACLS protocol with ROSC, s/p intubation and unresponsive. 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 Moderate to fairly significant generalized volume loss - hypothermia protocol Pulm: - s/p intubation - CXR shows ill-defined perihilar consolidation may represent pneumonia or possible mass. Mild cardiomegaly, moderate pulmonary venous congestion. - maintain SPO2> 92 % - Duonebs 3 ml INH RQ6 CV: - maintain MAP> 65 - Vasopressors: dopamine, Levophed, Vasopressin, Phenylephrine - followup ECHO - Cardiology consulted. Appreciate recs. GI: - Protonix 40 mg IV daily - NPO Renal: - monitor I and O - monitor and replete electrolytes Endo: - maintain euglycemia with blood sugars 140-180 - holding ISS Heme: - monitor H&H ID: - Afebrile, WBC count on admission 24.2 - Followup blood cultures, urine cultures - Cefepime 2 grams given - Moxifloxacin 400 mg given - Vancomycin 2 grams given - Continue Zosyn 3.375 grams IV Q6H Dispo: ICU, s/p intubation FEN: NPO Access: central line, peripheral IVs Consults: Cardio, Neuro PPX: Protonix for GI, SCDs, heparin 5000 units SC Q8
--- NOTE | 2018-06-10 21:50 | CP.PCM.DIS ---
Provider - Provider Date of Admission: 06/09/18 07:11 Attending physician: Eduardo Paige MD Primary care physician: Eduardo Paige MD Time Spent in preparation of Discharge (in minutes): 45 Hospital Course - Lab Results Lab Results: Micro Results 06/09/18 10:01 Naris MRSA Culture (Admit) - Final MRSA NOT DETECTED 06/09/18 09:15 Blood-Thru Central Line Blood Culture - Preliminary NO GROWTH AFTER 24 HOURS 06/09/18 09:15 Blood-Thru Central Line Blood Culture - Preliminary NO GROWTH AFTER 24 HOURS Most Recent Lab Values WBC 31.5 K/uL (4.8-10.8) H 06/10/18 07:39 RBC 2.90 Mil/uL (3.80-5.20) L 06/10/18 07:39 Hgb 7.5 g/dL (11.0-16.0) L D 06/10/18 07:39 Hct 25.2 % (34.0-47.0) L 06/10/18 07:39 MCV 86.7 fL (81.0-99.0) 06/10/18 07:39 MCH 25.8 pg (27.0-31.0) L 06/10/18 07:39 MCHC 29.7 g/dL (33.0-37.0) L 06/10/18 07:39 RDW 15.5 % (11.5-14.5) H 06/10/18 07:39 Plt Count 103 K/uL (130-400) L D 06/10/18 07:39 MPV 7.5 fL (7.2-11.7) 06/10/18 07:39 Neut % (Auto) 92.6 % (50.0-75.0) H 06/10/18 07:39 Lymph % (Auto) 3.3 % (20.0-40.0) L 06/10/18 07:39 Dolores % (Auto) 2.7 % (0.0-10.0) 06/10/18 07:39 Eos % (Auto) 1.2 % (0.0-4.0) 06/10/18 07:39 Baso % (Auto) 0.2 % (0.0-2.0) 06/10/18 07:39 Neut # (Auto) 29.2 K/uL (1.8-7.0) H 06/10/18 07:39 Lymph # (Auto) 1.1 K/uL (1.0-4.3) 06/10/18 07:39 Dolores # (Auto) 0.8 K/uL (0.0-0.8) 06/10/18 07:39 Eos # (Auto) 0.4 K/uL (0.0-0.7) 06/10/18 07:39 Baso # (Auto) 0.1 K/uL (0.0-0.2) 06/10/18 07:39 Neutrophils % (Manual) 74 % (50-75) 06/10/18 07:39 Band Neutrophils % 20 % (0-2) H* 06/10/18 07:39 Lymphocytes % (Manual) 4 % (20-40) L 06/10/18 07:39 Reactive Lymphs % 1 % (0-0) H 06/09/18 18:17 Monocytes % (Manual) 2 % (0-10) 06/10/18 07:39 Metamyelocytes % 2 % (0-0) H 06/10/18 00:57 Platelet Estimate Slightly decreased (NORMAL) L 06/10/18 07:39 Large Platelets Present 06/10/18 07:39 Giant Platelets Present 06/10/18 07:39 Polychromasia Slight 06/09/18 18:17 Hypochromasia (manual) Slight 06/10/18 07:39 Poikilocytosis (manual Slight 06/10/18 07:39 Anisocytosis (manual) Slight 06/10/18 07:39 Ovalocytes Slight 06/10/18 07:39 Leni Cells Slight 06/10/18 07:39 Rouleaux Slight 06/09/18 18:17 Smear Path Review 06/10/18 00:57 PT > 320.0 SECONDS (9.7-12.2) H D 06/10/18 07:39 INR > 10.0 06/10/18 07:39 APTT 71 SECONDS (21-34) H 06/10/18 07:39 D-Dimer, Quantitative > 5250 ng/mlDDU (0-243) H 06/09/18 06:51 Puncture Site Rb 06/10/18 04:45 pCO2 44 mm/Hg (35-45) 06/10/18 04:45 pO2 18 mm/Hg (30-55) L 06/10/18 10:48 HCO3 9.6 mmol/L (21-28) L* 06/10/18 04:45 ABG pH 7.00 (7.35-7.45) L* 06/10/18 04:45 ABG Total CO2 12.3 mmol/L (22-28) L 06/10/18 04:45 ABG O2 Saturation 98.2 % (95-98) H 06/10/18 04:45 ABG Base Excess -19.6 mmol/L (-2.0-3.0) L 06/10/18 04:45 ABG Hemoglobin 10.3 g/dL (11.7-17.4) L 06/10/18 04:45 ABG Carboxyhemoglobin 1.6 % (0.5-1.5) H 06/10/18 04:45 POC ABG HHb (Measured) 1.8 % (0.0-5.0) 06/10/18 04:45 ABG Methemoglobin 0.8 % (0.0-3.0) 06/10/18 04:45 Leonardo Test Na 06/10/18 04:45 ABG Potassium 4.8 mmol/L (3.6-5.2) 06/09/18 10:28 VBG pH 6.98 (7.32-7.43) L* 06/10/18 10:48 VBG pCO2 61 mmHg (40-60) H 06/10/18 10:48 VBG HCO3 8.8 mmol/L 06/10/18 10:48 VBG Total CO2 16.3 mmol/L (22-28) L 06/10/18 10:48 VBG O2 Sat (Calc) 40.8 % (40-65) 06/10/18 10:48 VBG Base Excess -17.7 mmol/L (0.0-2.0) L 06/10/18 10:48 VBG Potassium 3.3 mmol/L (3.6-5.2) L 06/10/18 10:48 A-a O2 Difference 416.0 mm/Hg 06/10/18 04:45 Respiratory Index 4.2 06/10/18 04:45 Hgb O2 Saturation 95.8 % (95.0-98.0) 06/10/18 04:45 Sodium < 100.0 mmol/l (132-148) L* 06/10/18 10:48 Chloride 46.0 mmol/L (98-107) L 06/10/18 10:48 Glucose 625 mg/dl (65-105) H* D 06/10/18 10:48 Lactate 8.5 mmol/L (0.7-2.1) H* 06/10/18 10:48 Vent Mode Prvc 06/10/18 04:45 Mechanical Rate 18 06/10/18 04:45 FiO2 100.0 % 06/10/18 10:48 Tidal Volume 500 06/10/18 04:45 PEEP 5 06/10/18 10:48 Crit Value Called To Dr streeter 06/10/18 10:48 Crit Value Called By Lior patten crt 06/10/18 10:48 Crit Value Read Back Y 06/10/18 10:48 Blood Gas Notified Time 1050 06/10/18 10:48 Sodium 132 mmol/L (132-148) 06/10/18 07:39 Potassium 5.6 mmol/L (3.6-5.2) H 06/10/18 07:39 Chloride 93 mmol/L (98-107) L 06/10/18 07:39 Carbon Dioxide 16 mmol/L (22-30) L 06/10/18 07:39 Anion Gap 29 (10-20) H 06/10/18 07:39 BUN 25 mg/dL (7-17) H 06/10/18 07:39 Creatinine 1.9 mg/dL (0.7-1.2) H 06/10/18 07:39 Est GFR ( Amer) 32 06/10/18 07:39 Est GFR (Non-Af Amer) 26 06/10/18 07:39 POC Glucose (mg/dL) 332 mg/dL (65-110) H 06/10/18 11:02 Random Glucose 303 mg/dL (65-105) H 06/10/18 07:39 Calcium 6.7 mg/dl (8.6-10.4) L 06/10/18 07:39 Phosphorus 10.3 mg/dL (2.5-4.5) H 06/10/18 02:31 Magnesium 2.5 mg/dL (1.6-2.3) H 06/10/18 07:39 Total Bilirubin 3.6 mg/dL (0.2-1.3) H 06/10/18 02:31 AST 38632 U/L (14-36) H 06/10/18 02:31 ALT 4123 U/L (9-52) H 06/10/18 02:31 Alkaline Phosphatase 161 U/L (38-126) H D 06/10/18 02:31 Total Creatine Kinase 160 U/L (30-135) H 06/09/18 06:51 CK-MB (Mass) 1.84 ng/mL (0.0-3.38) 06/09/18 06:51 Troponin I 0.0320 ng/mL (0.00-0.120) 06/09/18 06:51 NT-Pro-B Natriuret Pep 1030 pg/mL (0-900) H 06/09/18 06:51 Total Protein 4.8 g/dL (6.3-8.3) L 06/10/18 02:31 Albumin 2.3 g/dL (3.5-5.0) L 06/10/18 02:31 Globulin 2.6 gm/dL (2.2-3.9) 06/10/18 02:31 Albumin/Globulin Ratio 0.9 (1.0-2.1) L 06/10/18 02:31 Arterial Blood Potassium 4.8 mmol/L (3.6-5.2) 06/09/18 10:28 Venous Blood Potassium 3.3 mmol/L (3.6-5.2) L 06/10/18 10:48 Ur L.pneumophila Ag Negative (NEGATIVE) 06/10/18 12:25 Blood Type B POSITIVE 06/10/18 08:47 Antibody Screen Negative 06/10/18 08:47 - Hospital Course Hospital Course: Chief complaint: Cardiac arrest HPI: 72-year-old female with a history of severe COPD, on home O2, CAD, stent, hypertension, hypercholesterolemia brought in by the ambulance following a cardiac arrest even. According to the patient's and she was having progressively worsening shortness of breath, and worsening cough, and shortness of breath. Last night patient was having increasing symptoms of SOB, at the time patient was given nebulizer in the house, and the patient's son was asking her to go to the hospital, initially patient was refusing. Following that patient was feeling slightly better with the nebs treatment. 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 While the ambulance arrived the patient was in apnea, no pulse was noted, found to have pulseless electrical activity. Patient was initially resuscitated in the house to my intubated and brought in to the emergency room. In the emergency room again patient had a cardiac arrest, resuscitated again with at least half an hour of CPR. Patient is currently in the ICU. On ventilator. There is evidence of anoxia noted, and not responding. Patient started on induced hypothermia because of the weakness to cardiac arrest Past medical history: CAD, hypertension, COPD, home O2 Allergy no known drug allergy Personal history patient used to be a smoker in the past. Current patient is living in the house, patient did not see any doctor for many months. Review of system noted from the chart a On examination: Patient is unresponsive. On ventilator. Not responding to any stimuli. Severe hypertensive. Patient labs reviewed Currently anuric. Chest x-ray no acute infiltrate noted. CT scan of the head negative Assessment: Patient is a 72-year-old female with a history of CAD hypertension COPD home oxygen. Admitted with the cardiac arrest, now having possible anoxic encephalopathy. On hypothermia. But is still patient having severe hypotension on medications. Family at bedside. Explained to the family about the overall prognosis. Overall condition is very critical. Patient's prognosis very poor. Patient most likely anoxic, and comatose to. Will get a neurology evaluation, EEG, and ICU management Patient admitted to the intensive care unit with the cardiac arrest. Patient had evidence of hypoxic, anoxic encephalopathy. Started on hypothermic protocol. I discussed with the patient's family in details. Expend to the family about the overall prognosis. Patient's family made her DNR. Patien was on maximum hemodynamic support, without any improvement. Treatment was withheld. Clinically patient become severely hypertensive bradycardic. Following that the patient was pronounced by the ICU team Family was at bedside. Final diagnoses: Acute pneumonia. Acute respiratory failure Cardiac arrest the following the respiratory arrest. Chronic COPD. CAD. Discharge Exam - Head Exam Head Exam: ATRAUMATIC, NORMAL INSPECTION, NORMOCEPHALIC Discharge Plan - Follow Up Plan Condition: GUARDED Disposition: WITH WITHOUT AUTOPSY Referrals: Eduardo Paige MD [Primary Care Provider] -
--- NOTE | 2018-06-11 01:03 | CON ---
DATE: 06/10/2018 LOCATION: The patient is in ICU at this time. REASON FOR CONSULTATION: I am asked to evaluate her. HISTORY OF PRESENT ILLNESS: She is a 72-year-old female. She has a history of COPD. She is on oxygen at home and also has coronary artery disease, status post stent, hypertension, high cholesterol. She was brought in with a cardiac arrest on 06/09/2018. Right now, she is hypotensive, on vasopressors, intubated and unresponsive. I am asked to evaluate her. She did receive vancomycin and Zosyn. She was having increasing shortness of breath, was given nebulizer. The patient was asked to go to the hospital, initially she refused that. Her family is at the bedside right now, a daughter as well as the son. The patient had no pulse and she was apneic. She has since then had received fluids and right now she has been anuric, not making any urine. Blood pressure is in the 40s. The patient is currently in ICU, on ventilator. She was not responding and was also seen by the palliative nurse. PAST MEDICAL HISTORY: No history of DVT. No history of decubitus. No history of urinary catheter in the past. She has had no infections, but she has COPD with end-stage COPD with oxygen dependence. It is unknown whether she ever smoked. She has cardiac issues with congestive heart failure, high cholesterol, hypertension. Pulmonary carroll, she has COPD and emphysema. History of seizure disorder, is also there. No ears, nose, or throat problems reported. No kidney issues. Most of the history is taken from the chart as the patient is intubated, endocrine. No skin problems. History of fall is there. No GI issues. No issues. No psych problems. No history of previous surgeries. No anesthesia in the past. ALLERGIES: SHE IS NOT ALLERGIC TO ANY MEDICINE. MEDICATIONS: At the present time, she is on albuterol, dextrose, dopamine. She got glucagon. She is on heparin subcu, norepinephrine, pantoprazole, phenylephrine. She is on Zosyn. She is also on sodium bicarbonate. She is on vasopressin. Insulin was discontinued. Norepinephrine. She is on Zosyn. She is on bicarbonate drip at this time. She did get vancomycin this morning. PHYSICAL EXAMINATION: VITAL SIGNS: Her temperature is right now 91.6. She is hypothermic. Pulse is 82, blood pressure is low in the 40s, on the ventilator. The patient's vitals at this time very poor, temperature is 92, blood pressure of 48/15, respirations remain on the vent 28. HEENT: Head is atraumatic, normocephalic. The pupils are not reacting much. NECK: Supple. Intubated. LUNGS: Clear at this time. No crackles or wheezes present. HEART: S1 and S2 are regular. ABDOMEN: Soft, flabby, nontender. She has a groin line at this time. EXTREMITIES: Remain with mild edema. LABORATORY DATA: She is also obese with BMI of 38.3 and weight of 230. Right now, the labs show white count is 31.5, hemoglobin 7.5, it is decreased probably due to hydration, hematocrit is 25.2, platelet count is 103. Has 20 bands, 4 lymphocytes. Sodium is 136, potassium 5.6, chlorides are 93, creatinine is 1.9. There is an ABG done which shows pH of 6.98, CO2 is 61, bicarb is 8.8. She is already on bicarb drip. Chest x-ray shows persistent slightly increased right upper lobe infiltrate, trace right pleural effusion, borderline air space disease right base laterally, adequate NG tube placement. IMPRESSION AND PLAN: My impression is that she is status post cardiac arrest with respiratory failure, chronic obstructive pulmonary disease, with oxygen dependent. The patient is hypothermic right now with a poor arterial blood gas of pH of 6.8. I think at this time any heroic measures may not bring her back. The patient's family was made aware of it. She has anoxic encephalopathy, global anxiety, brainstem dysfunction on electroencephalogram according to the Neurology was noted. The prognosis is poor. None much can be done at this time. No Ly MD
--- NOTE | 2018-06-11 08:16 | CARD ---
APPROVED REPORT Date of service: 06/09/2018 EXAM: LIMITED Two-dimensional and M-mode echocardiogram. Other Information Quality : Technically LimitedRhythm : INDICATION Chest Pain Cardiac Arrest 2D DIMENSIONS IVSd0.9 (0.7-1.1cm)LVDd3.6 (3.9-5.9cm) PWd0.7 (0.7-1.1cm)LVDs3.2 (2.5-4.0cm) FS (%) 9.2 %LVEF (%)32.0 (>50%) M-Mode DIMENSIONS Left Atrium (MM)2.34 (2.5-4.0cm)Aortic Root2.96 (2.2-3.7cm) Aortic Cusp Exc.1.93 (1.5-2.0cm) Mitral Valve E/A ratio0.0 TDI E/Lateral E'0.0E/Medial E'0.0 Tricuspid Valve TR Peak [id number] Peak [id number] LEFT VENTRICLE The left ventricle is normal size. Left ventricle systolic function is moderately to severely impaired. The Ejection Fraction is 30-35%. There is global hypokinesis of the left ventricle. The left ventricular diastolic function is normal. RIGHT VENTRICLE The right ventricle is normal size. Systolic function is moderately to severely reduced. ATRIA The left atrium size is normal. The right atrium size is normal. The interatrial septum is intact with no evidence for an atrial septal defect. AORTIC VALVE The aortic valve is normal in structure. No aortic regurgitation is present. There is no aortic valvular stenosis. MITRAL VALVE The mitral valve is normal in structure. There is no mitral valve stenosis. There is no mitral valve regurgitation noted. TRICUSPID VALVE There is mild tricuspid regurgitation. Right ventricular systolic pressure is estimated at 40-50 mmHg. There is mild-moderate pulmonary hypertension. PULMONIC VALVE The pulmonic valve is not well visualized. <Conclusion> SUBOPTIMAL STUDY DUE TO POOR ULTRASONIC WINDOW. Left ventricle systolic function is moderately to severely impaired. The Ejection Fraction is 30-35%. No aortic regurgitation is present. There is no mitral valve regurgitation noted. There is mild tricuspid regurgitation. There is mild-moderate pulmonary hypertension.
--- NOTE | 2018-06-11 12:48 | CARD ---
APPROVED REPORT Date of service: 06/09/2018 EKG Measurement Heart [id number] <Conclusion> SVT Low voltage QRS Cannot rule out Anterior infarct, age undetermined T wave abnormality, consider inferior ischemia Abnormal ECG
--- NOTE | 2018-06-11 12:49 | CARD ---
APPROVED REPORT Date of service: 06/09/2018 EKG Measurement Heart [id number] <Conclusion> Undetermined rhythm Low voltage QRS Nonspecific ST and T wave abnormality Abnormal ECG
== END 2018-06-10 16:18 | DRG 208 ==
LOC: SUPCPDRO 06:28 → C.ER 06:28 → C.9I 07:11
PROVIDERS: ADMIT Internal Medicine; ATTEND Internal Medicine
PROC: 5A1945Z Respiratory Ventilation, 24-96 Consecutive Hours (ICD-10-PCS; principal; 2018-06-09)
PROC: 5A12012 Performance of Cardiac Output, Single, Manual (ICD-10-PCS; 2018-06-09)
PROC: 06HM33Z Insertion of Infusion Device into Right Femoral Vein, Percutaneous Approach (ICD-10-PCS; 2018-06-09)
PROC: 6A4Z0ZZ Hypothermia, Single (ICD-10-PCS; 2018-06-09)
PROC: 30233N1 Transfusion of Nonautologous Red Blood Cells into Peripheral Vein, Percutaneous Approach (ICD-10-PCS; 2018-06-09)
DX: J96.01 Acute respiratory failure with hypoxia (principal); J18.9 Pneumonia, unspecified organism; I46.8 Cardiac arrest due to other underlying condition; G93.1 Anoxic brain damage, not elsewhere classified; J44.0 Chronic obstructive pulmonary disease with (acute) lower respiratory infection; I11.0 Hypertensive heart disease with heart failure; I25.10 Atherosclerotic heart disease of native coronary artery without angina pectoris; G40.909 Epilepsy, unspecified, not intractable, without status epilepticus; I50.9 Heart failure, unspecified; D64.9 Anemia, unspecified; M81.0 Age-related osteoporosis without current pathological fracture; E78.5 Hyperlipidemia, unspecified; E78.00 Pure hypercholesterolemia, unspecified; F41.9 Anxiety disorder, unspecified; W18.30XA Fall on same level, unspecified, initial encounter; E66.01 Morbid (severe) obesity due to excess calories; Z66 Do not resuscitate; Z99.81 Dependence on supplemental oxygen; Z95.5 Presence of coronary angioplasty implant and graft; Z87.891 Personal history of nicotine dependence